=== PATIENT | male | born 1985 | race Caucasian/White ===

== ENCOUNTER 2017-02-25 12:26 | Emergency (ER) | payer SELFPAY ==
[~2017-02-25] VITALS: Ht 167.6 cm; Wt 102.1 kg
[~2017-02-25 12:26] MED LIST: TRM50T PO
[2017-02-25] MEDS ORDERED: LIDOCAINE 1% INJ 20 ML (XYLOCAINE) VIAL ONE (12:30)
[2017-02-25] MEDS ORDERED: TETANUS,DIPTH,PERTUSS P/F (BOOSTRIX) 0.5 ML VIAL IM ONE (12:31)
--- NOTE | 2017-02-25 13:10 | ED Upper Extremity ---
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 Patient denies loss of sensation or range of motion affected digit he denies other injury Patient's tetanus immunization is not up-to-date. Allergies and Home Medications Allergies Coded Allergies: No Known Drug Allergies (Unverified , 03/28/10) Home Medications No Active Prescriptions or Reported Meds Constitutional: No chills, No fever EENTM: no symptoms reported Respiratory: no symptoms reported Cardiovascular: no symptoms reported Gastrointestinal: abdominal pain Musculoskeletal: no symptoms reported Skin: see HPI, other (there is a 3 cm flap laceration of the proximal phalanx palmar aspect of the right index finger along its radial aspect.) Psychiatric/Neurological: No Symptoms Reported Past Mcdrfkq-Pyagdk-Rdorsf Hx Patient Social History Alcohol Use: Occasionally Uses Recreational Drug Use: Yes (METH, POT) Type Used: Cigarettes Recent Foreign Travel: No Contact w/Someone Who Travel: No Recent Infectious Disease Expo: No Recent Hopitalizations: No Physical Abuse: No Sexual Abuse: No Immunizations Up To Date Tetanus Booster (TDap): Unknown Seasonal Allergies Seasonal Allergies: No Surgeries History of Surgeries: Yes (Bilat ear tubes) Surgeries: Adenoidectomy, Tonsillectomy Respiratory History of Respiratory Disorde: No Cardiovascular History of Cardiac Disorders: No Neurological History of Neurological Disord: No Reproductive System Hx Reproductive Disorders: No Gastrointestinal History of Gastrointestinal Di: No Musculoskeletal History of Musculoskeletal Dis: No Endocrine History of Endocrine Disorders: No Cancer History of Cancer: No Psychosocial History of Psychiatric Problem: No Suicide Risk Score: 0 Integumentary History of Skin or Integumenta: No Blood Transfusions History of Blood Disorders: No Reviewed Nursing Assessment Reviewed/Agree w Nursing PMH: Yes Physical Exam Vital Signs Vital Sign - Last 12Hours 02/25/17 12:26 Temp 97.1 Pulse 81 Resp 20 B/P (MAP) 133/100 Pulse Ox 100 Capillary Refill : Less Than 3 Seconds General Appearance: WD/WN, mild distress HEENT: normal ENT inspection Neck: normal inspection Cardiovascular: normal peripheral pulses Respiratory: lungs clear, no respiratory distress Gastrointestinal: non tender Shoulder: normal inspection Elbow/Forearm: normal inspection Wrist: Yes normal inspection Hand: Right, laceration (there is a 3 cm laceration the proximal phalanx radial aspect of the right index finger. There was normal neurologic mask and tendon exam.) Neurologic/Tendon: normal sensation, normal motor functions, normal tendon functions, responds to pain Neurologic/Psychiatric: no motor/sensory deficits, alert, normal mood/affect Progress/Results/Core Measures Results/Orders My Orders Orders - ALAN FELICIANO MD Lidocaine 1% Injection (Xylocaine 1% Inj (02/25/17 12:30) Dipht,Pertuss(Acell),Tet Adult (Boostrix (02/25/17 12:31) Medications Given in ED Current Medications Medications Dose Ordered Sig/Debbie Route Start Time Stop Time Status Last Admin Dose Admin Diphtheria/ Tetanus/Acell Pertussis 0.5 ml STK-MED ONCE IM 02/25/17 12:31 02/25/17 12:39 DC 02/25/17 12:43 0.5 ML Lidocaine HCl 20 ml STK-MED ONCE .ROUTE 02/25/17 12:30 02/25/17 12:38 DC 02/25/17 12:40 20 ML Vital Signs/I&O Vital Sign - Last 12Hours 02/25/17 12:26 Temp 97.1 Pulse 81 Resp 20 B/P (MAP) 133/100 Pulse Ox 100 Blood Pressure Mean: 111 Progress Note : Time: 13:07 Progress Note Under usual sterile conditions using 1 percent Xylocaine for local anesthesia laceration was prepped and draped and closed in an interrupted fashion approximately 8 sutures were used for closure. Patient tolerated the procedure well the wound was cleaned and dressed. During repair laceration inadvertently sustained a puncture wound from the suture needle to my left middle finger distal phalanx radial aspect. Patient gave permission for us to draw blood for HIV and hepatitis. Departure Impression Impression: Primary Impression: Laceration Disposition: 01 HOME, SELF-CARE Condition: Improved Departure-Patient Inst. Decision time for Depature: 13:09 Referrals: NO,LOCAL PHYSICIAN (PCP) Primary Care Physician Patient Instructions: Laceration Repair Add. Discharge Instructions: Sutures out in 10 days. Watch for signs of infection. Ibuprofen or Tylenol for pain. Return if any problems or questions. All discharge instructions reviewed with patient and/or family. Voiced understanding. Scripts No Active Prescriptions or Reported Meds ALAN FELICIANO MD Feb 25, 2017 13:10
[2017-02-25 13:28] VITALS: BP 133/100
== END 2017-02-25 13:28 | disposition home or self-care (01) ==
LOC: EDUNIT# 12:26 → ER 12:28
DX: S61.210A Laceration without foreign body of right index finger without damage to nail, initial encounter (principal); F12.90 Cannabis use, unspecified, uncomplicated; Z23 Encounter for immunization; Z90.89 Acquired absence of other organs; W26.8XXA Contact with other sharp object(s), not elsewhere classified, initial encounter
CPT/HCPCS: 12041; 90471; 90715

== ENCOUNTER → 2017-06-05 | Outpatient (CLI) | payer SELFPAY ==
--- NOTE | 2017-06-05 14:17 | Diagnostic Imaging Report ---
INDICATION: Scrotal mass. TECHNIQUE: Grayscale imaging of the scrotum was performed. Color Doppler velocity and spectral waveform analysis of the scrotal vessels was performed. FINDINGS: The right testicle measures approximately 6 x 7.5 x 7.5 cm and is diffusely heterogeneous in appearance with color Doppler velocity and spectral waveform analysis showing inflow and outflow present with no hyperemia or torsion. This abnormal testis represents malignancy until proven otherwise. The left testicle measures approximately 2.5 x 4.5 cm and is normal in appearance with normal vascularity demonstrated. The left epididymis is normal. The right epididymis is not seen. There is no hydrocele. IMPRESSION: There is abnormal appearance to an enlarged right testicle which represents malignancy until proven otherwise. Dictated by: Dictated on workstation # [id number]
== END ==
LOC: RAD 12:36
PROVIDERS: ATTEND Nurse Practitioner Community Health
DX: N44.8 Other noninflammatory disorders of the testis (principal)
CPT/HCPCS: 76870

== ENCOUNTER → 2017-06-12 | Outpatient (CLI) | payer SELFPAY ==
[2017-06-12 15:01] LABS: ALANINE AMINOTRANSFERASE 46 U/L (0-55); ALBUMIN 4.4 GM/DL (3.2-4.5); ALKALINE PHOSPHATASE 98 U/L (40-136); BILIRUBIN,TOTAL 0.5 MG/DL (0.1-1.0); BUN/CREATININE RATIO 11; CALCIUM 9.2 MG/DL (8.5-10.1); CARBON DIOXIDE 23 MMOL/L (21-32); CHLORIDE 102 MMOL/L (98-107); CREATININE SERUM 0.91 MG/DL (0.60-1.30); GFR ESTIMATED > 60; GLUCOSE 96 MG/DL (70-105); POTASSIUM 4.5 MMOL/L (3.6-5.0); SODIUM 135 MMOL/L (135-145); TOTAL PROTEIN 7.3 GM/DL (6.4-8.2)
--- NOTE | 2017-06-12 15:21 | Diagnostic Imaging Report ---
INDICATION: Testicular cancer. EXAMINATION: PA and lateral chest. FINDINGS: The heart and mediastinum are normal. The lungs are clear. There are no effusions or pneumothoraces. IMPRESSION: Negative chest. Dictated by: Dictated on workstation # [id number]
== END ==
LOC: LAB 14:19
PROVIDERS: ATTEND Surgery
DX: N50.9 Disorder of male genital organs, unspecified (principal)
CPT/HCPCS: 36415; 71046; 80053; 82105; 83615; 84702

== ENCOUNTER 2017-07-25 05:38 | Outpatient (CLI) | payer SELFPAY ==
[~2017-07-25] VITALS: Ht 167.6 cm; Wt 102.1 kg
== END 2017-07-25 11:13 ==
LOC: PREOP 05:38
PROVIDERS: ATTEND Surgery
DX: Z01.818 Encounter for other preprocedural examination (principal); K80.20 Calculus of gallbladder without cholecystitis without obstruction

== ENCOUNTER 2017-07-30 07:50 | Day surgery (SDC) | payer OTHER ==
[~2017-07-30] VITALS: Ht 167.6 cm; Wt 102.1 kg
[2017-07-30] MEDS ORDERED: CATHETER FLUSH 10 ML SYR IV PRN (08:15)
[2017-07-30] MEDS ORDERED: ceFAZolin 2 GM/50 ML PRE-MIX IVPB IV ONE (08:15)
[2017-07-30] MEDS ORDERED: LIDOCAINE/EPI 1%-1:200,000 (XYLOCAINE) 10 ML VIAL ONE ×2 (08:19→09:44)
[2017-07-30 08:24] VITALS: BP 124/72
[2017-07-30] MEDS: LACTATED RINGERS 1,000 ML IV PRN ×3 (08:28→10:29)
[2017-07-30] MEDS ORDERED: ceFAZolin 2 GM IV Premixed 50 ML IV ONE (08:30)
[2017-07-30] MEDS ORDERED: fentaNYL INJECTION 100 MCG/2 ML AMP ONE ×2 (08:38→09:51)
[2017-07-30] MEDS ORDERED: MIDAZOLAM 2 MG/2 ML (VERSED) VIAL ONE (08:39)
--- NOTE | 2017-07-30 09:07 | Progress Note-Pre Operative ---
Pre-Operative Progress Note H&P Reviewed The H&P was reviewed, patient examined and no changes noted. Time Seen by Provider: 09:03 Date H&P Reviewed: Jul 30, 2017 Time H&P Reviewed: 09:05 Pre-Operative Diagnosis: cholelithiasis/cholecystitis LATASHA MONTES DO Jul 30, 2017 09:07
[2017-07-30] MEDS ORDERED: proPOfol 200 MG/20 ML (DIPRIVAN) VIAL IV ONE ×2 (09:51→09:57)
[2017-07-30] MEDS ORDERED: ONDANSETRON 4 MG/2 ML (SDV) Z0FRAN ONE (09:51)
[2017-07-30] MEDS ORDERED: SEVOFLURANE (ULTANE) 15 ML INHAL SOLN ONE ×3 (09:51)
[2017-07-30] MEDS ORDERED: ROCURONIUM 50 MG/5 ML (ZEMURON) VIAL IV ONE ×2 (09:51→10:21)
[2017-07-30] MEDS ORDERED: DEXAMETHASONE 10 MG/ML (DECADRON) 1 ML VIAL ONE (09:51)
[2017-07-30] MEDS ORDERED: LIDOCAINE PF 2% 5 ML (XYLOCAINE) VIAL ONE (09:51)
--- NOTE | 2017-07-30 10:21 | Progress Note-Post Operative ---
Post-Operative Progess Note Surgeon (s)/Metal Control Worker (s) Surgeon LATASHA MONTES DO Metal Control Worker: Arjun Pre-Operative Diagnosis cholelithiasis/cholecystitis Post-Operative Diagnosis same Procedure & Operative Findings Date of Procedure 07/30/17 Procedure Performed/Findings Lap maximus with IOC Anesthesia Type GET Estimated Blood Loss Estimated blood loss (mL): scant Specimens/Packing Specimens Removed GB and contents LATASHA MONTES DO Jul 30, 2017 10:21
[2017-07-30] MEDS ORDERED: NEOSTIGMINE (BLOXIVERZ ) 1 MG/1ML 10 ML VIAL ONE (10:22)
[2017-07-30] MEDS ORDERED: HYDR-3820 PO (10:22)
[2017-07-30] MEDS ORDERED: KETOROLAC 30 MG/ML VIAL ONE (10:22)
[2017-07-30] MEDS ORDERED: GLYCOPYRROLATE 0.2 MG/ML (ROBINUL) 2 ML VIAL ONE (10:22)
--- NOTE | 2017-07-30 10:25 | Discharge Inst-Surgical ---
Discharge Inst-Surgical Depart Medication/Instructions New, Converted or Re-Newed RX: RX Given to Pt/Family Patient Instructions Follow up Appt: Make appointment for 1 week;[phone]. Instructions: No lifting greater than 10 pounds. No strenuous activity. May shower in 24 hours, no tub bath or soaking. Use incentive spirometer at home as directed. No Smoking Skin/Wound Care: May remove bandages. You need to leave the Dermabond on over incision it will fall off on its own. Symptoms to Report: Appetite Changes, Extremity Discoloration, Numbness/Tingling, Swelling Increased , Bleeding Excessive, Eyesight Changes, Pain Increased, Urine Color Change, Constipation(Persistent), Fever over 101 degree F, Pain/Pressure in chest, Urinating Difficulty, Cough Up/Vomit Blood, Heart Beat Irreg/Pounding, Pain/ Pressure in jaw, Cramps in feet or legs, Lightheadedness, Pain/Pressure in shoulder, Diarrhea(Persistent), Memory Changes Suddenly, Questions/Concerns, Weight gain consecutive days, Dizziness/Fainting, Nausea/Vomiting, Shortness of Breath, Weight gain over 2 pounds. If eyes or skin turn yellow notify physician. If questions or concerns contact your physician Or seek help at emergency department. Activity Activity as Tolerated: Yes Activity Instructions: Avoid Stress to Incision Driving Instructions: No Driving/Refer to Diet Discharge Diet: Avoid Fatty Foods, Low Fat/Low Cholesterol Diet After 24 Hours: Clear Liquid if Nauseous If Any Problems/Questions/Issu: Contact Your Physician, Go to Emergency Room Skin/Wound Care Infection Signs and Symptoms: Increased Redness, Foul Odor of Wound, Increased Drainage, Skin Itchy or Has a Rash, Increased Swelling, Temperature Above 101 F Wound Care Comment: Heating pad to shoulder or neck tonight for pain. Bathing Instructions: Shower Stitches/Tommie/Dermabond Dis: Dermabond Ice Pack: Ice On and Off Site (as needed for pain) LATASHA MONTES DO Jul 30, 2017 10:25
[2017-07-30] MEDS ORDERED: morphine INJ 10 MG/ML 1ML (SYR OR VIAL) ONE (10:47)
[2017-07-30] MEDS: morphine INJ 10 MG/ML 1ML (SYR OR VIAL) IVP PRN ×2 (10:50→10:55)
[2017-07-30] MEDS ORDERED: HYDROmorphone (DILAUDID) 2 MG/ML VIAL IVP PRN (11:00)
[2017-07-30] MEDS ORDERED: fentaNYL INJECTION 100 MCG/2 ML AMP IVP PRN (11:00)
[2017-07-30] MEDS ORDERED: ONDANSETRON 4 MG/2 ML (SDV) Z0FRAN IVP PRN (11:00)
--- NOTE | 2017-07-30 11:18 | Diagnostic Imaging Report ---
INDICATION: Laparoscopic cholecystectomy. FINDINGS: Fluoroscopy was provided in the OR during performance of an intraoperative cholangiogram. 9 seconds of fluoroscopic time was utilized. Multiple images demonstrate contrast being injected via the cystic duct remnant. There is opacification of the extrahepatic bile duct which is of normal caliber. No filling defects are seen to suggest a retained stone. There is normal flow of contrast into the duodenum. IMPRESSION: Fluoroscopy for intraoperative cholangiogram. Dictated by: Dictated on workstation # [id number]
[2017-07-30 11:50] VITALS: BP 129/74
[2017-07-30 12:20] VITALS: BP 123/65
[2017-07-30 12:50] VITALS: BP 122/69
[2017-07-30 13:20] VITALS: BP 122/69
--- NOTE | 2017-07-30 14:00 | Anesthesia-General Post-Op ---
General Patient Condition Mental Status/LOC: Same as Preop Cardiovascular: Satisfactory Nausea/Vomiting: Absent Respiratory: Satisfactory Pain: Controlled Complications: Absent Post Op Complications Complications None Follow Up Care/Instructions Patient Instructions None needed. Anesthesia/Patient Condition Patient Condition Patient was S/E prior to discharge to home and was doing well, no complaints, stable vital signs, no apparent adverse anesthesia problems. TOM MARADIAGA DO Jul 30, 2017 14:00
--- NOTE | 2017-07-30 21:10 | OPERATIVE REPORT ---
DATE OF SERVICE: PREOPERATIVE DIAGNOSES: Cholelithiasis, cholecystitis. POSTOPERATIVE DIAGNOSES: Cholelithiasis, cholecystitis. PROCEDURE: Laparoscopic cholecystectomy, intraoperative cholangiogram. SURGEON: Dr. Mahan. COMPUTER SYSTEMS TECHNOLOGY INSTRUCTOR: Dr. Díaz. ANESTHESIA: General endotracheal tube. SPECIMEN: Gallbladder and contents. BLOOD LOSS: Less than 10 mL. FLUIDS: Per anesthesia. POSTOPERATIVE CONDITION: Stable. INDICATION FOR PROCEDURE: The patient is a 32-year-old male who has had pain in right upper quadrant associated with fried and fatty foods and had a CT, which showed a large stone. FINDINGS: The patient had a very large stone in the gallbladder with some surrounding fat and almost looked like edema in the gallbladder. PROCEDURE NOTE: After informed consent was obtained, the patient was brought to the operating room, placed on the operating table in supine position, sterilely prepped and draped in normal fashion. Local lidocaine was used to infiltrate the skin above the umbilicus, made incision with #11 blade, carried down through skin and subcutaneous tissue, then deepened down the subcutaneous tissue with Bovie electrocautery down to the fascia. Fascia was incised with Bovie electrocautery and bluntly entered the abdomen, swept a finger around, placed 0 Vicryl [id number] suture, and then placed an 11 mm trocar port under direct visualization, created pneumoperitoneum and then placed 3 more ports in a normal fashion using local lidocaine, an 11 blade for a stab incision and the VersaStep system, all done under direct visualization, one subxiphoid and 2 in the right upper quadrant. The patient was then placed in reverse Trendelenburg and rotated left, able to grasp the gallbladder at the fundus and taken in superior direction and then grasped down the Linda's pouch, pulled in the inferolateral direction and started dissecting out the cystic duct, lot of fat around the gallbladder and what looked like edema. I was able to get around the cystic duct and the cystic artery and placed 1 clip distally in the cystic duct and 1 distally on the cystic artery and 1 proximally on the cystic artery, and then 1 distally on the cystic duct. Cut the cystic duct intermediate through with Metzenbaum scissors. Placed a cholangiogram catheter and shot a cholangiogram. Good spillage of dye down the common bile duct into the small intestine as well as up into the common hepatic and right and left hepatics. Removed the cholangiogram catheter, placed 2 clips proximally on the cystic duct and cut the cystic duct and cystic artery with Metzenbaum scissors and then removed the gallbladder from bed of liver with L-hook cautery. posterior branch of the cystic artery, clipped this twice proximally and then dissected above with Bovie electrocautery. Then I continued to take the gallbladder off the bed of liver with L-hook cautery. Once this was completely removed, placed a bag in the abdomen, placed the gallbladder in the bag and then removed this through the supraumbilical incision with very large stones and pretty hard to get the gallbladder out. Finally, able to get it out after pulling a couple of stones out of the gallbladder itself, placed an 11 mm trocar port back in. Copiously irrigated with normal saline, suctioned this out, took a picture of the bed of liver, there was no bleeding, looked around, no obvious pathology. There were some adhesions above the liver on the left, but did not move any intestine or omentum and then placed the patient supine, removed all ports under direct visualization, allowing pneumoperitoneum to escape. Closed the supraumbilical incision, closed the fascia with 0 Vicryl suture previously placed. Copiously irrigated all incisions with normal saline, closing the 3 small 5 mm incisions with a single interrupted 4-0 undyed Monocryl subcuticular stitch. Closed the supraumbilical incision with 3 interrupted 4-0 undyed Monocryl subcuticular stitches. Area was cleaned and dried and Dermabond was placed as well as bandage. The patient was then transferred to recovery room in stable condition. Sponge and needle count correct at the end of the case. Dr. Díaz assisted in the case making incisions, identifying the anatomy, holding up the anatomy and then closing the incisions. Job ID: [id number] DocumentID: [id number] Dictated Date: 07/30/2017 15:00:14 Orchestra Musician Date: 07/30/2017 21:10:23 Dictated By: LATASHA MAHAN DO
== END 2017-07-30 13:20 | disposition home or self-care (01) ==
LOC: SDC 07:50
PROVIDERS: ATTEND Surgery
DX: K80.10 Calculus of gallbladder with chronic cholecystitis without obstruction (principal); C62.11 Malignant neoplasm of descended right testis; I10 Essential (primary) hypertension; E66.9 Obesity, unspecified; F17.210 Nicotine dependence, cigarettes, uncomplicated; F32.9 Major depressive disorder, single episode, unspecified; F90.9 Attention-deficit hyperactivity disorder, unspecified type; Z68.36 Body mass index [BMI] 36.0-36.9, adult
CPT/HCPCS: 87081; 94664

== ENCOUNTER 2017-10-08 09:32 | Inpatient (IN) | payer OTHER ==
[~2017-10-08] VITALS: Ht 167.6 cm; Wt 101.6 kg
[~2017-10-08 09:32] MED LIST changes: +HYDR-3820 PO
[2017-10-08] MEDS ORDERED: fentaNYL INJECTION 100 MCG/2 ML AMP ONE (09:39)
--- OUTSIDE RECORDS SUMMARY | 2017-10-08 09:40 | XMS REPORT | Clinical Summary ---
Author Author [facility] Organization [facility] Address Unknown Phone Unavailable Care Team Providers Care Pest Control Operator Name Role Phone No Pcp, Na PCP Unavailable Source Comments Some departments are not documenting in the electronic medical record. If you do not see the information that you expected, contact Release of Information in the Health Information Management department at [phone] for further assistance in locating additional records.[facility] Allergies No Known Allergies Current Medications Prescription Sig. Disp. Refills Start End Date Status Date oxyCODONE/acetaminophen Take 1-2 tablets by mouth 30 tablet 0 Active (ENDOCET) 5/325 mg tablet every 4 hours as needed 18 for Pain senna (SENNA) 8.6 mg Take 2 tablets by mouth 90 tablet 3 07/02/19 Active tablet at bedtime daily. 18 Active Problems Problem Noted Date Testicular cancer (HCC) 06/26/2017 Overview: Initially found a mass in his right testicle about 2 years ago, but was not seen due to lack of resources and insurance. Recently this mass has increased in size and he has started having some minimal pain. Scrotum US completed Jun 2017 which noted an abnormal appearance of right testicle which could represent a malignancy. Radiology: 06/05/2017: US SCROTUM - Impression: There is abnormal appearance to an enlarged right testicle which represents malignancy until proven otherwise. Labs: 06/12/2017 LDH 463 U/L AFP <1.5 ng.mL HCG 294 mIU/mL 07/02/17: CT ANN 07/02/17: Rt radical orchiectomy: T1b NSGCT Seminoma (specify percentage): less than 10% Embryonal carcinoma (specify percentage): 80-90% Yolk sac tumor, postpubertal type (specify percentage): 0% Choriocarcinoma (specify percentage): less than 5% Teratoma (specify percentage): 0% 07/10/17: tumor markers negative Stage 1A L ast Assessment & Plan: Progressing well after surgery We reviewed options of 1. Observation 2. Nerve sparing RPLND 3. Single dose chemotherapy He will RTC 2 weeks with tumor markers Family History Medical History Relation Name Comments Cancer Other Diabetes Other Stroke Other Testicular Cancer Other Relation Name Status Comments Other Social History Tobacco Use Types Packs/Day Years Used Date Current Every Day Smoker Cigarettes 2 20 Smokeless Tobacco: Former Chew Quit: User 06/26/2016 Tobacco Cessation: Ready to Quit: Yes Alcohol Use Drinks/Week oz/Week Comments Yes 5 Cans of 3.0 beer Sex Assigned at Date Recorded Not on file Last Filed Vital Signs Vital Sign Reading Time Taken Blood Pressure 137/71 07/10/2017 2:37 PM UX ENGINEER Pulse 92 07/10/2017 2:37 PM UX ENGINEER Temperature 36.6 C (97.9 F) 07/02/2017 9:35 AM UX ENGINEER Respiratory Rate - - Oxygen Saturation 98% 07/02/2017 10:15 AM UX ENGINEER Inhaled Oxygen - - Concentration Weight 98 kg (216 lb) 07/10/2017 2:37 PM UX ENGINEER Height 167.6 cm (5' 6") 07/10/2017 2:37 PM UX ENGINEER Body Mass Index 34.86 07/10/2017 2:37 PM UX ENGINEER Plan of Treatment Health Maintenance Due Date Last Done Comments PHYSICAL (COMPREHENSIVE) 1991 EXAM PERTUSSIS VACCINE 1995 HIV SCREENING 1999 TETANUS VACCINE 2001 INFLUENZA VACCINE 03/04/2018 Results Not on filefrom Last 3 Months
--- OUTSIDE RECORDS SUMMARY | 2017-10-08 09:40 | XMS REPORT | Continuity of Care Document ---
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 Clerk Carrier Name Role Phone [employer] Unavailable Unavailable Problems Medications Allergies, Adverse Reactions, Alerts Immunizations Results Vital Signs Encounters Location Location Details Encounter Type Encounter Number Reason For Visit Attending Provider ADM Date DC Date Status Source OUTPATIENT [id number] 06/26/2017 Active [facility] OUTPATIENT [id number] 06/26/2017 Active [facility] OP SURGERY [id number] [facility] WHITE 07/02/2017 07/02/2017 Active [facility] OUTPATIENT [id number] SHAWN WHITE 07/10/2017 07/10/2017 Active [facility] O SHAWN WHITE Active [facility] Procedures Plan of Care Social History Assessment and Plan Family History Advance Directives Functional Status
[2017-10-08] MEDS ORDERED: NS IV 1000 ML 1,000 ML IV ONE ×2 (09:41→10:59)
[2017-10-08] MEDS ORDERED: ONDANSETRON 4 MG/2 ML (SDV) Z0FRAN IVP ONE (09:45)
[2017-10-08] MEDS ORDERED: fentaNYL INJECTION 100 MCG/2 ML AMP IVP ONE ×2 (09:45→13:45)
[2017-10-08 09:55] LABS: BASOPHILS # (AUTO) 0.1 10^3/uL (0.0-0.1); BASOPHILS % (AUTO) 0 % (0-10); EOSINOPHILS % (AUTO) 0 % (0-10); HEMATOCRIT 44 % (40-54); HEMOGLOBIN 15.4 G/DL (13.3-17.7); LYMPHOCYTES # (AUTO) 1.4 X 10^3 (1.0-4.0); LYMPHOCYTES % (AUTO) 5 % (12-44); MEAN CORPUSCULAR HEMOGLOBIN 31 PG (25-34); MEAN CORPUSCULAR HGB CONC 35 G/DL (32-36); MEAN CORPUSCULAR VOLUME 88 FL (80-99); MEAN PLATELET VOLUME 10.4 FL (7.4-10.4); MONOCYTES # (AUTO) 2.5 X 10^3 (0.0-1.0); MONOCYTES % (AUTO) 9 % (0-12); NEUTROPHILS # (AUTO) 23.7 X 10^3 (1.8-7.8); NEUTROPHILS % (AUTO) 86 % (42-75); PLATELET COUNT 395 10^3/uL (130-400); RED BLOOD COUNT 4.98 10^6/uL (4.35-5.85); RED CELL DISTRIBUTION WIDTH 13.3 % (10.0-14.5); WHITE BLOOD COUNT 27.7 10^3/uL (4.3-11.0)
[2017-10-08 10:18] LABS: ALANINE AMINOTRANSFERASE 12 U/L (0-55); ALBUMIN 3.8 GM/DL (3.2-4.5); ALKALINE PHOSPHATASE 112 U/L (40-136); BILIRUBIN,TOTAL 0.9 MG/DL (0.1-1.0); BUN/CREATININE RATIO 11; CALCIUM 9.7 MG/DL (8.5-10.1); CARBON DIOXIDE 17 MMOL/L (21-32); CHLORIDE 102 MMOL/L (98-107); CREATININE SERUM 0.89 MG/DL (0.60-1.30); GFR ESTIMATED > 60; GLUCOSE 105 MG/DL (70-105); POTASSIUM 4.7 MMOL/L (3.6-5.0); SODIUM 131 MMOL/L (135-145); TOTAL PROTEIN 7.5 GM/DL (6.4-8.2)
--- NOTE | 2017-10-08 10:29 | Diagnostic Imaging Report ---
Indication: Chest pain. Procedure: PA and lateral chest obtained of8903 hrs. a.m. and compared with 06/12/2017 Findings: There is new extensive pleural thickening and/or fluid in the left lateral pleural space and costophrenic angle. There are some infiltrate or atelectasis in the left lateral base which is new. There is no pneumothorax. Right lung is clear. Impression: New left basilar infiltrate versus atelectasis with left-sided pleural fluid and/or pleural thickening in the left costophrenic angle and lateral pleural space. Consider chest CT as clinically warranted. Dictated by: Dictated on workstation # [id number]
[2017-10-08 10:31] LABS: BAND NEUTROPHILS 4 %; BASOPHILS % (MANUAL) 0 %; EOSINOPHILS % (MANUAL) 0 %; LYMPHOCYTES % (MANUAL) 7 %; MONOCYTES % (MANUAL) 3 %; NEUTROPHILS % (MANUAL) 86 %; RBC MORPH NORMAL
[2017-10-08] MEDS ORDERED: PIPERACILLIN SODIUM/TAZOBACTAM 4.5 GM in NS (IVPB) 100 ML IV ONE (11:00)
[2017-10-08] MEDS ORDERED: KETOROLAC 30 MG/ML VIAL IVP ONE (11:00)
--- NOTE | 2017-10-08 11:11 | ED Chest Pain ---
General Chief Complaint: Chest Pain Stated Complaint: SOB, PAIN IN SIDE CONGESTED Nursing Triage Note: PT CO OF CHEST PAIN, PT STATES STARTED YESTERDAY IN L CHEST AREA DOWN L ARM AND L SIDE BACK PAIN IN REPRODUCABLE BY DR Howard. PT HYPERVENTILATING, RR 42 PT CLUTCHING L SIDE CHEST, PT STATES DOES HAVE FREQUENT PROD COUGH. Nursing Sepsis Screen: No Definite Risk Source: patient Exam Limitations: no limitations History of Present Illness Date Seen by Provider: October 08, 2017 Time Seen by Provider: 09:36 Initial Comments This 32-year-old gentleman presents to the emergency room with primary complaint of left-sided chest pain that radiates all the way down to his left lower back. He has a very tender to palpation of the chest wall and breathing is painful. He is tachycardic. He is also very dyspneic. He has had productive cough. He has had nausea and vomiting that has now turned to dry heaves. He is diaphoretic but denies fever. Patient has a history of right testicular cancer status post orchiectomy. He is otherwise relatively healthy. Dr. Montenegro is his oncologist. Dr. Mahan is his surgeon. Allergies and Home Medications Allergies Coded Allergies: No Known Drug Allergies (Unverified , 03/28/10) Home Medications No Active Prescriptions or Reported Meds Patient Home Medication List Home Medication List Reviewed: Yes Review of Systems Constitutional: see HPI EENTM: No Symptoms Reported Respiratory: See HPI, Shortness of Air Cardiovascular: See HPI Gastrointestinal: See HPI Genitourinary: No Symptoms Reported Musculoskeletal: see HPI Skin: see HPI Psychiatric/Neurological: No Symptoms Reported Endocrine: No Symptoms Reported Hematologic/Lymphatic: No Symptoms Reported Past Wlflnqz-Cdoglf-Kavgup Hx Patient Social History Alcohol Use: Regular Use Number of Drinks Today: 2 Alcohol Beverage of Choice: Beer Recreational Drug Use: Yes (ALCOHOL) Drug of Choice: MARIJUANA Smoking Status: Current Everyday Smoker Type Used: Cigarettes Recent Foreign Travel: No Contact w/Someone Who Travel: No Recent Infectious Disease Expo: No Recent Hopitalizations: No Physical Abuse: No Sexual Abuse: No Immunizations Up To Date Tetanus Booster (TDap): Unknown Seasonal Allergies Seasonal Allergies: No Past Medical History Surgeries: Yes (Bilat ear tubes, right orchiectomy) Adenoidectomy, Tonsillectomy Respiratory: No Cardiac: No Neurological: No Reproductive Disorders: Yes (testicular cancer) Gastrointestinal: No Gall Bladder Disease Musculoskeletal: No Endocrine: No Loss of Vision: Denies Hearing Impairment: Denies Cancer: Yes Testicular What Type of Treatment Did You: Surgical Intervention Psychosocial: Yes ADD/ADHD, Depression Nursing Suicide Risk Score: 0 Integumentary: No Blood Disorders: No Physical Exam Vital Signs Vital Signs - First Documented 10/08/17 09:34 Temp 99.1 Pulse 111 Resp 28 B/P (MAP) 167/76 (106) Pulse Ox 96 Capillary Refill : Less Than 3 Seconds General Appearance: WD/WN, Moderate Distress HEENT: PERRL/EOMI, Normal ENT Inspection, Pharynx Normal Neck: Normal Inspection Respiratory: Lungs Clear, Normal Breath Sounds, No Accessory Muscle Use, No Respiratory Distress Cardiovascular: No Edema, No Murmur, Tachycardia Gastrointestinal: Normal Bowel Sounds, No Organomegaly, Non Tender, Soft; No Distended, No Guarding, No Mass, No Rebound Extremity: Normal Inspection, Non Tender, No Calf Tenderness, No Pedal Edema Neurologic/Psychiatric: Alert, Oriented x3, No Motor/Sensory Deficits, Normal Mood/Affect, in home aide II-XII Norm as Tested Skin: Normal Color, Warm/Dry Focused Exam Lactate Level 10/08/17 11:28: Lactic Acid Level 0.84 Lactic Acid Level Laboratory Tests Test 10/08/17 11:28 Lactic Acid Level 0.84 MMOL/L (0.50-2.00) Progress/Results/Core Measures Results/Orders Lab Results Laboratory Tests Test 10/08/17 09:40 10/08/17 11:28 Range/Units White Blood Count 27.7 H 4.3-11.0 10^3/uL Red Blood Count 4.98 4.35-5.85 10^6/uL Hemoglobin 15.4 13.3-17.7 G/DL Hematocrit 44 40-54 % Mean Corpuscular Volume 88 80-99 FL Mean Corpuscular Hemoglobin 31 25-34 PG Mean Corpuscular Hemoglobin Concent 35 32-36 G/DL Red Cell Distribution Width 13.3 10.0-14.5 % Platelet Count 395 130-400 10^3/uL Mean Platelet Volume 10.4 7.4-10.4 FL Neutrophils (%) (Auto) 86 H 42-75 % Lymphocytes (%) (Auto) 5 L 12-44 % Monocytes (%) (Auto) 9 0-12 % Eosinophils (%) (Auto) 0 0-10 % Basophils (%) (Auto) 0 0-10 % Neutrophils # (Auto) 23.7 H 1.8-7.8 X 10^3 Lymphocytes # (Auto) 1.4 1.0-4.0 X 10^3 Monocytes # (Auto) 2.5 H 0.0-1.0 X 10^3 Eosinophils # (Auto) 0.0 0.0-0.3 10^3/uL Basophils # (Auto) 0.1 0.0-0.1 10^3/uL Neutrophils % (Manual) 86 % Lymphocytes % (Manual) 7 % Monocytes % (Manual) 3 % Eosinophils % (Manual) 0 % Basophils % (Manual) 0 % Band Neutrophils 4 % Blood Morphology Comment NORMAL Sodium Level 131 L 135-145 MMOL/L Potassium Level 4.7 3.6-5.0 MMOL/L Chloride Level 102 98-107 MMOL/L Carbon Dioxide Level 17 L 21-32 MMOL/L Anion Gap 12 5-14 MMOL/L Blood Urea Nitrogen 10 7-18 MG/DL Creatinine 0.89 0.60-1.30 MG/DL Estimat Glomerular Filtration Rate > 60 BUN/Creatinine Ratio 11 Glucose Level 105 70-105 MG/DL Calcium Level 9.7 8.5-10.1 MG/DL Total Bilirubin 0.9 0.1-1.0 MG/DL Aspartate Amino Transf (AST/SGOT) 15 5-34 U/L Alanine Aminotransferase (ALT/SGPT) 12 0-55 U/L Alkaline Phosphatase 112 40-136 U/L C-Reactive Protein High Sensitivity 30.70 H 0.00-0.50 MG/DL Total Protein 7.5 6.4-8.2 GM/DL Albumin 3.8 3.2-4.5 GM/DL Lactic Acid Level 0.84 0.50-2.00 MMOL/L Micro Results Microbiology 10/08/17 Influenza Types A,B Antigen (ELIJAH) - Final, Complete My Orders Orders - DONTA LÓPEZ MD Cbc With Automated Diff (10/08/17 09:41) Comprehensive Metabolic Panel (10/08/17 09:41) Hs C Reactive Protein (10/08/17 09:41) Saline Lock/Iv-Start (10/08/17 09:41) Saline Lock/Iv-Start (10/08/17 09:41) Ns Iv 1000 Ml (Sodium Chloride 0.9%) (10/08/17 09:41) Fentanyl Injection (Sublimaze Injection (10/08/17 09:45) Ondansetron Injection (Zofran Injectio (10/08/17 09:45) Fentanyl Injection (Sublimaze Injection (10/08/17 09:39) Chest Pa/Lat (2 View) (10/08/17 09:46) Influenza A And B Antigens (10/08/17 09:46) Manual Differential (10/08/17 09:40) Blood Culture (10/08/17 10:59) Lactic Acid Analyzer (10/08/17 10:59) Piperacillin Sodium/Tazobactam (Zosyn Vi (10/08/17 11:00) Ns Iv 1000 Ml (Sodium Chloride 0.9%) (10/08/17 10:59) Ketorolac Injection (Toradol Injection) (10/08/17 11:00) Hcg Tumor Marker (10/08/17 10:59) Ct Chest/Abdomen/Pelvis W (10/08/17 11:15) Iohexol Injection (Omnipaque 350 Mg/Ml 1 (10/08/17 11:30) Ns (Ivpb) (Sodium Chloride 0.9%) (10/08/17 11:30) Medications Given in ED Current Medications Medications Dose Ordered Sig/Debbie Route Start Time Stop Time Status Last Admin Dose Admin Fentanyl Citrate 75 mcg ONCE ONCE IVP 10/08/17 09:45 10/08/17 09:46 DC 10/08/17 09:45 75 MCG Iohexol 100 ml ONCE ONCE IV 10/08/17 11:30 10/08/17 11:31 DC 10/08/17 11:43 100 ML Ketorolac Tromethamine 15 mg ONCE ONCE IVP 10/08/17 11:00 10/08/17 11:02 DC 10/08/17 11:16 15 MG Ondansetron HCl 8 mg ONCE ONCE IVP 10/08/17 09:45 10/08/17 09:46 DC 10/08/17 10:47 4 MG Piperacillin Sod/ Tazobactam Sod 4.5 gm/Sodium Chloride 100 ml @ 200 mls/hr ONCE ONCE IV 10/08/17 11:00 10/08/17 11:29 DC 10/08/17 11:16 200 MLS/HR Sodium Chloride 250 ml ONCE ONCE IV 10/08/17 11:30 10/08/17 11:31 DC 10/08/17 11:43 80 ML Sodium Chloride 1,000 ml @ 0 mls/hr Q0M ONCE IV 10/08/17 09:41 10/08/17 09:43 DC 10/08/17 11:22 0 MLS/HR Sodium Chloride 1,000 ml @ 0 mls/hr Q0M ONCE IV 10/08/17 10:59 10/08/17 11:02 DC 10/08/17 11:16 0 MLS/HR Vital Signs/I&O 10/08/17 09:34 Temp 99.1 Pulse 111 Resp 28 B/P (MAP) 167/76 (106) Pulse Ox 96 Blood Pressure Mean: 106 Progress Progress Note #1: Time: 11:16 Progress Note Patient was promptly assessed and evaluated. Fentanyl was given for pain. Zofran was administered for nausea. A repeat dose of Zofran was given and nausea has resolved. Pain is much improved. Patient appears to have significant infection with elevated CRP and WBC. Chest x-ray revealed the consolidation and/or effusion in the left lower lung. CT is being pursued for further evaluation. Bolus of 2 L of normal saline is being infused. Zosyn has been ordered for initial antibiotic therapy. Blood cultures and lactic acid are being drawn. Case was briefly reviewed with Dr. Mahan who requested a tumor marker beta hCG. Progress Note #2: Time: 12:35 Progress Note Pain is controlled at this time. CT was reviewed with Dr. Anderson. The consolidation in the left lower lung appears to be a dense loculations/fluid. Case was reviewed with Dr. Alfaro will consider thoracentesis. In the meantime patient will be continued on Zosyn. Admission to the ICU was requested due to presence of sepsis and possible need for thoracentesis. Progress Note #3: Time: 15:13 Progress Note Patient was assessed by Dr. Alfaro and Dr. Mahan in the ER. Patient is stable at this time. Dr. Alfaro believes the fluid collection is empyema that needs decortication. He does not believe thoracentesis with sufficiently manage the fluid. Options were discussed with the patient including the potential for transfer to a cardiothoracic surgeon. Dr. Mahan offered to perform in the decortication at this facility. After risks and benefits were discussed at length with the patient and amongst the 3 physicians, patient elects to be admitted at this facility and have Dr. Mahan perform decortication. Since thoracentesis is not being performed and patient is stable at this time, he will be admitted to the medical floor with telemetry. Surgery is anticipated for tomorrow. Patient was given a DuoNeb treatment to help with shortness of breath. Initial ECG Impression Date: October 08, 2017 Initial ECG Impression Time: 09:47 Initial ECG Rate: 107 Initial ECG Rhythm: S.Tach Comment Sinus tachycardia with no ST elevation or depression. No abnormal intervals or axis deviation. Diagnostic Imaging Diagonstic Imaging: Xray Plain Films/CT/US/NM/MRI: chest Comments Chest x-ray viewed by me and report reviewed. See report below: NAME: SHWETA RUIZ [facility] REC#: [id number] PT STATUS: REG ER : 1985 PHYSICIAN: DONTA LÓPEZ MD ADMIT DATE: 10/08/17/ER Draft Date of Exam:10/08/17 CHEST PA/LAT (2 VIEW) Indication: Chest pain. Procedure: PA and lateral chest obtained [id number] hrs. a.m. and compared with 06/12/2017 Findings: There is new extensive pleural thickening and/or fluid in the left lateral pleural space and costophrenic angle. There are some infiltrate or atelectasis in the left lateral base which is new. There is no pneumothorax. Right lung is clear. Impression: New left basilar infiltrate versus atelectasis with left-sided pleural fluid and/or pleural thickening in the left costophrenic angle and lateral pleural space. Consider chest CT as clinically warranted. Dictated on workstation # [id number] Dict: 10/08/17 1013 Trans: 10/08/17 1028 [id number] [id number] Interpreted by: VERONICA COLLINS MD Diagonstic Imaging: CT Plain Films/CT/US/NM/MRI: chest, abdomen, pelvis Comments CT chest, abdomen and pelvis viewed by me and report reviewed. See report below : NAME: SHWETA RUIZ [facility] REC#: [id number] PT STATUS: ADM IN : 1985 PHYSICIAN: DONTA LÓPEZ MD ADMIT DATE: 10/08/17 Signed Date of Exam: 10/08/17 CT CHEST/ABDOMEN/PELVIS W PROCEDURE: CT chest, abdomen, and pelvis with contrast. TECHNIQUE: Multiple contiguous axial images were obtained through the chest, abdomen, and pelvis after the administration of intravenous contrast. INDICATION: Abdominal pain. FINDINGS: The chest exam performed earlier today at 10:22 noted left lower lobe pneumonia/atelectasis and a left pleural effusion. On this study there is indeed some atelectasis/infiltrate in the left lung base as well as a left pleural effusion. The effusion measures 6.5 cm maximum depth. Effusion also appears to extend along the periphery of the left midlung and left upper lung and this may represent either loculated effusion or an early empyema. There is also slight thickening of the pleura along the medial aspect of the left midlung and left upper lung. The left upper lung is otherwise clear. The right lung is also clear and well aerated. The heart size is within normal limits. There are no coronary artery calcifications evident. The aorta is not abnormally dilated and there is no defect within the pulmonary arteries to indicate pulmonary embolus. The pulmonary arteries are not well opacified however. There is no mediastinal or hilar adenopathy. The thyroid gland where visualized is unremarkable. There is increased density in both retroareolar regions. This may be secondary to gynecomastia. The images through the abdomen and pelvis show that in the interval since the prior exam, on 01/27/2009, the patient has undergone a cholecystectomy. The liver, spleen, pancreas, adrenals, kidneys, aorta and inferior vena cava are unremarkable for an acute abnormality. There is no pelvic mass or free fluid collection noted. The urinary bladder and prostate gland are grossly unremarkable. By history, the patient is diagnosed with testicular carcinoma. There is no iliac chain or inguinal adenopathy. There is no abnormal adenopathy involving the retroperitoneum or periaortic region to suggest neoplastic disease. The bone windows show no sign of a fracture or destructive lesion. IMPRESSION: 1. There is left lower lobe atelectasis/infiltrate as well as a sizable loculated effusion involving the left lung base. The possibility that this fluid collection is related to early empyema formation should be considered. 2. There is also some pleural thickening along the medial aspect of the left upper lung. The lungs are otherwise clear. 3. There is no acute abnormality of the abdomen or pelvis. 4. There has been interval cholecystectomy since the prior exam. 5. The results were discussed Dr. López. Dictated by: Dictated on workstation # [id number] Dict: 10/08/17 1208 Trans: 10/08/17 1726 Interpreted by: RAHEL ANDERSON MD Electronically signed by: RAHEL ANDERSON MD 10/08/17 1726 Departure Communication (Admissions) Time/Spoke to Admitting Phy: 12:20 Dr. Allen Time/Spoke to Consulting Phy: 12:15 Dr. Alfaro Impression Primary Impression: Sepsis Qualified Codes: A41.9 - Sepsis, unspecified organism Additional Impressions: Left lower lobe pneumonia Qualified Codes: J18.1 - Lobar pneumonia, unspecified organism Pleural effusion Nausea and vomiting Qualified Codes: R11.2 - Nausea with vomiting, unspecified History of testicular cancer Disposition: ADMITTED INPATIENT Condition: Improved Admissions Decision to Admit Reason: Admit from ER (General) Decision to Admit/Date: October 08, 2017 Time/Decision to Admit Time: 11:00 Departure-Patient Inst. Referrals: NO,LOCAL PHYSICIAN (PCP) Primary Care Physician Scripts No Active Prescriptions or Reported Meds DONTA LÓPEZ MD October 08, 2017 11:11
[2017-10-08] MEDS ORDERED: IOHEXOL 350 MG/ML 100 ML (OMNIPAQUE 350) VIAL IV ONE (11:30)
[2017-10-08] MEDS ORDERED: NS 250 ML (IVPB) BAG IV ONE (11:30)
--- NOTE | 2017-10-08 13:35 | Diagnostic Imaging Report ---
PROCEDURE: CT chest, abdomen, and pelvis with contrast. TECHNIQUE: Multiple contiguous axial images were obtained through the chest, abdomen, and pelvis after the administration of intravenous contrast. INDICATION: Abdominal pain. FINDINGS: The chest exam performed earlier today at 10:22 noted left lower lobe pneumonia/atelectasis and a left pleural effusion. On this study there is indeed some atelectasis/infiltrate in the left lung base as well as a left pleural effusion. The effusion measures 6.5 cm maximum depth. Effusion also appears to extend along the periphery of the left midlung and left upper lung and this may represent either loculated effusion or an early empyema. There is also slight thickening of the pleura along the medial aspect of the left midlung and left upper lung. The left upper lung is otherwise clear. The right lung is also clear and well aerated. The heart size is within normal limits. There are no coronary artery calcifications evident. The aorta is not abnormally dilated and there is no defect within the pulmonary arteries to indicate pulmonary embolus. The pulmonary arteries are not well opacified however. There is no mediastinal or hilar adenopathy. The thyroid gland where visualized is unremarkable. There is increased density in both retroareolar regions. This may be secondary to gynecomastia. The images through the abdomen and pelvis show that in the interval since the prior exam, on 01/27/2009, the patient has undergone a cholecystectomy. The liver, spleen, pancreas, adrenals, kidneys, aorta and inferior vena cava are unremarkable for an acute abnormality. There is no pelvic mass or free fluid collection noted. The urinary bladder and prostate gland are grossly unremarkable. By history, the patient is diagnosed with testicular carcinoma. There is no iliac chain or inguinal adenopathy. There is no abnormal adenopathy involving the retroperitoneum or periaortic region to suggest neoplastic disease. The bone windows show no sign of a fracture or destructive lesion. IMPRESSION: 1. There is left lower lobe atelectasis/infiltrate as well as a sizable loculated effusion involving the left lung base. The possibility that this fluid collection is related to early empyema formation should be considered. 2. There is also some pleural thickening along the medial aspect of the left upper lung. The lungs are otherwise clear. 3. There is no acute abnormality of the abdomen or pelvis. 4. There has been interval cholecystectomy since the prior exam. 5. The results were discussed Dr. López. Dictated by: Dictated on workstation # [id number]
--- NOTE | 2017-10-08 13:56 | Pulmonary Consultation ---
History of Present Illness History of Present Illness Date of Consultation 10/08/17 13:51 Time Seen by Provider: 13:51 Date of Admission History of Present Illness 32yo with hx of testicular cancer s/p orchiectomy by Dr. Montes who presented secondary to SOB, nonproductive cough, and left reproducible CP with radiation down left back that started yesterday. Pain is worse with palpation and deep breathing. Denies fever however pt was diaphoretic upon ED admission. He follows with Dr. Montenegro. I am consulted for pulmonary/CC management. Allergies and Home Medications Allergies Coded Allergies: No Known Drug Allergies (Unverified , 03/28/10) Home Medications Amoxicillin/Potassium Clav 1 Each Tablet, 1 EACH PO BID Prescribed by: LATASHA MONTES on 10/13/17 1100 Hydrocodone Bit/Acetaminophen 1 Tab Tab, 2 TAB PO Q6HR PRN for CHEST PAIN Prescribed by: LATASHA MONTES on 10/13/17 1100 Past Tekkrec-Smwxwd-Wigqrd Hx Patient Social History Alcohol Use: Regular Use Number of Drinks Today: 2 Alcohol Beverage of Choice: Beer Recreational Drug Use: Yes (ALCOHOL) Drug of Choice: MARIJUANA Smoking Status: Current Everyday Smoker Type Used: Cigarettes Recent Foreign Travel: No Contact w/Someone Who Travel: No Recent Infectious Disease Expo: No Recent Hopitalizations: No Physical Abuse: No Sexual Abuse: No Immunizations Up To Date Tetanus Booster (TDap): Unknown Seasonal Allergies Seasonal Allergies: No Past Medical History Surgeries: Yes (Bilat ear tubes, right orchiectomy) Adenoidectomy, Tonsillectomy Respiratory: No Cardiac: No Neurological: No Reproductive Disorders: Yes (testicular cancer) Gastrointestinal: No Gall Bladder Disease Musculoskeletal: No Endocrine: No Loss of Vision: Denies Hearing Impairment: Denies Cancer: Yes Testicular What Type of Treatment Did You: Surgical Intervention Psychosocial: Yes ADD/ADHD, Depression Nursing Suicide Risk Score: 0 Integumentary: No Blood Disorders: No Review of Systems Time Seen by Provider: 07:33 Constitutional: Fever, Chills, Sweats, Weakness, Malaise Eyes: No: Pain, Vision change, Conjunctivae inflammation, Eyelid inflammation, Other, Redness ENT: No: Ear pain, Ear discharge, Nose pain, Nose discharge, Nose congestion, Mouth pain, Mouth swelling, Throat pain, Throat swelling, Other Respiratory: Cough, Shortness of breath, SOB with excertion, Pleuritic Pain, Sputum Cardiovascular: Chest Pain, Paroxysmal Noc. Dyspnea Gastrointestinal: No: Nausea, Vomiting, Abdominal Pain, Diarrhea, Constipation , Melena, Hematochezia, Other Genitourinary: No Dysuria, No Frequency, No Incontinence, No Hematuria, No Retention, No Other Neurological: Weakness Exam Exam Vital Signs Date Time Temp Pulse Resp B/P (MAP) Pulse Ox O2 Delivery O2 Flow Rate FiO2 10/08/17 09:34 99.1 111 28 167/76 (106) 96 General Appearance: WD/WN, Moderate Distress HEENT: PERRL/EOMI, Normal ENT Inspection, Pharynx Normal Neck: Normal Inspection Respiratory: Lungs Clear, Normal Breath Sounds, No Accessory Muscle Use, No Respiratory Distress Cardiovascular: No Edema, No Murmur, Tachycardia Capillary Refill: Less Than 3 Seconds Extremity: Normal Inspection, Non Tender, No Calf Tenderness, No Pedal Edema Neurologic/Psychiatric: Alert, Oriented x3, No Motor/Sensory Deficits, Normal Mood/Affect, 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 Vyas for decortication. Pt prefers to stay here vs transfer for thoracic surgery. -Will have pleural fluid sent for analysis and cytology Hx of testicular cancer s/p orchiectomy WILIAN JOSHI DO October 08, 2017 13:56
[2017-10-08] MEDS ORDERED: RT-ALBUTEROL/IPRATROPIUM 3 ML (DUONEB) VIAL INH ONE (15:15)
--- OUTSIDE RECORDS SUMMARY | 2017-10-08 15:33 | XMS REPORT | Clinical Summary ---
Author Author [facility] Organization [facility] Address Unknown Phone Unavailable Care Team Providers Care Good[employer] Welter Name Role Phone No Pcp, Na PCP Unavailable Source Comments Some departments are not documenting in the electronic medical record. If you do not see the information that you expected, contact Release of Information in the Health Information Management department at [phone] for further assistance in locating additional records.[facility] Allergies No Known Allergies Current Medications [...] Taken Blood Pressure 137/71 07/10/2017 2:37 PM [facility] [employer]ICE BROKER Pulse 92 07/10/2017 2:37 PM [employer]OKER Temperature 36.6 C (97.9 F) 07/02/2017 9:35 AM [employer]OKER Respiratory Rate - - Oxygen Saturation 98% 07/02/2017 10:15 AM [employer] BROKER Inhaled Oxygen - - Concentration Weight 98 kg (216 lb) 07/10/2017 2:37 PM [employer]ICE BROKER Height 167.6 cm (5' 6") 07/10/2017 2:37 PM [employer]ICE BROKER Body Mass Index 34.86 07/10/2017 2:37 PM [employer]ICE BROKER Plan of Treatment Health Maintenance Due Date Last Done Comments PHYSICAL (COMPREHENSIVE) 1991 EXAM PERTUSSIS VACCINE 1995 HIV SCREENING 1999 TETANUS VACCINE 2001 INFLUENZA VACCINE 03/04/2018 Results Not on filefrom Last 3 Months
--- OUTSIDE RECORDS SUMMARY | 2017-10-08 15:33 | XMS REPORT | Continuity of Care Document ---
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 Name Role Phone [employer] Unavailable Unavailable Problems Medications Allergies, Adverse Reactions, Alerts Immunizations Results Vital Signs Encounters Location Location Details Encounter Type Encounter Number Reason For Visit Attending Provider ADM Date DC Date Status Source OUTPATIENT [id number] 06/26/2017 Active [facility] OUTPATIENT [id number] 06/26/2017 Active [facility] OP SURGERY [id number] [place]ITE 07/02/2017 07/02/2017 Active [facility] OUTPATIENT [id number] [place]N WHITE 07/10/2017 07/10/2017 Active [facility] O SHAWN WHITE Active [facility] Procedures Plan of Care Social History Assessment and Plan Family History Advance Directives Functional Status
--- NOTE | 2017-10-08 15:39 | Consultation ---
History of Present Illness History of Present Illness Patient Consulted On(kelly/time) 10/08/17 15:33 Time Seen by Provider: 14:46 History of Present Illness Surgery is asked to consult regarding Empyema; possible need for Decortication HPI per ED: This 32-year-old gentleman presents to the emergency room with primary complaint of left-sided chest pain that radiates all the way down to his left lower back. He has a very tender to palpation of the chest wall and breathing is painful. He is tachycardic. He is also very dyspneic. He has had productive cough. He has had nausea and vomiting that has now turned to dry heaves. He is diaphoretic but denies fever. Patient has a history of right testicular cancer status post orchiectomy. He is otherwise relatively healthy. Dr. Montenegro is his oncologist. When I spoke to pt he was coughing, states it is not productive at this time. His pain is rated as an 5 out of 10, but will shoot up to 8 or 9. He thinks this has been going of for a week or so. He describes the pain as very sharp; worse when he coughs and with certain movements. Allergies and Home Medications Allergies Coded Allergies: No Known Drug Allergies (Unverified , 03/28/10) Home Medications Hydrocodone/Acetaminophen 1 Each Tablet, 1 TAB PO Q8H Prescribed by: LATASHA MONTES on 07/30/17 1022 Patient Home Medication List Home Medication List Reviewed: Yes Past Vehuavl-Zcautp-Fjqrqo Hx Patient Social History Alcohol Use: Regular Use Number of Drinks Today: 2 Recreational Drug Use: Yes (ALCOHOL) Drug of Choice: MARIJUANA Smoking Status: Current Everyday Smoker Type Used: Cigarettes Recent Foreign Travel: No Contact w/Someone Who Travel: No Recent Infectious Disease Expo: No Recent Hopitalizations: No Immunizations Up To Date Tetanus Booster (TDap): Unknown Seasonal Allergies Seasonal Allergies: No Surgeries History of Surgeries: Yes (Bilat ear tubes, right orchiectomy) Surgeries: Adenoidectomy, Tonsillectomy Respiratory History of Respiratory Disorde: No Cardiovascular History of Cardiac Disorders: No Neurological History of Neurological Disord: No Reproductive System Hx Reproductive Disorders: Yes (testicular cancer) Gastrointestinal History of Gastrointestinal Di: No Gastrointestinal Disorders: Gall Bladder Disease Musculoskeletal History of Musculoskeletal Dis: No Endocrine History of Endocrine Disorders: No HEENT Loss of Vision: Denies Hearing Impairment: Denies Cancer History of Cancer: Yes Cancer: Testicular Psychosocial History of Psychiatric Problem: Yes Behavioral Health Disorders: ADD/ADHD, Depression Integumentary History of Skin or Integumenta: No Blood Transfusions History of Blood Disorders: No Family Medical History Significant Family History: Cancer (Father had testicular cancer), Diabetes ( Mother) Review of Systems-General Constitutional: chills, diaphoresis, weakness, weight loss EENTM: No blurred vision, No double vision, No mouth pain, No mouth swelling, No epistaxis, No throat swelling Respiratory: cough, dyspnea on exertion; No hemoptysis; phlegm, short of breath Cardiovascular: chest pain; No edema, No palpitations Gastrointestinal: No abdominal pain, No constipation, No diarrhea Genitourinary: No dysuria, No frequency, No hematuria Musculoskeletal: back pain; No joint pain, No joint swelling; muscle stiffness Skin: No change in color, No change in hair/nails Psychiatric/Neurological: Denies Anxiety, Denies Depressed Other Pt denies any abnormal bleeding or bruising. Pt denies any heat or cold intolerance. Physical Exam-General Problems Physical Exam Vital Signs Vital Signs - First Documented 10/08/17 09:34 Temp 99.1 Pulse 111 Resp 28 B/P (MAP) 167/76 (106) Pulse Ox 96 Capillary Refill : Less Than 3 Seconds General Appearance: WD/WN, moderate distress, obese Eyes: Bilateral Eye PERRL, Bilateral Eye EOMI HEENT: pharynx normal; No scleral icterus (R), No scleral icterus (L), No pale conjunctivae (R), No pale conjunctivae (L) Neck: full range of motion, normal inspection; No thyromegaly Respiratory: respiratory distress, decreased breath sounds (Left with dullness to percussion), accessory muscle use, crackles (left), plerual rub Cardiovascular: no edema, no JVD, no murmur, tachycardia Gastrointestinal: normal bowel sounds, non tender, soft, no organomegaly, no pulsatile mass Rectal: deferred Back: normal inspection, no CVA tenderness, vertebral tenderness (left) Extremities: normal range of motion, normal inspection, no pedal edema, no calf tenderness 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, no motor/sensory deficits, alert, normal mood/affect, oriented x 3 Skin: normal color, warm/dry Lymphatic: no adenopathy (neck axilla or groin) Data Review Labs Laboratory Tests 10/08/17 09:40: White Blood Count 27.7H, Red Blood Count 4.98, Hemoglobin 15.4, Hematocrit 44, Mean Corpuscular Volume 88, Mean Corpuscular Hemoglobin 31, Mean Corpuscular Hemoglobin Concent 35, Red Cell Distribution Width 13.3, Platelet Count 395, Mean Platelet Volume 10.4, Neutrophils (%) (Auto) 86H, Lymphocytes (%) (Auto) 5L , Monocytes (%) (Auto) 9, Eosinophils (%) (Auto) 0, Basophils (%) (Auto) 0, Neutrophils # (Auto) 23.7H, Lymphocytes # (Auto) 1.4, Monocytes # (Auto) 2.5H, Eosinophils # (Auto) 0.0, Basophils # (Auto) 0.1, Neutrophils % (Manual) 86, Lymphocytes % (Manual) 7, Monocytes % (Manual) 3, Eosinophils % (Manual) 0, Basophils % (Manual) 0, Band Neutrophils 4, Blood Morphology Comment NORMAL, Sodium Level 131L, Potassium Level 4.7, Chloride Level 102, Carbon Dioxide Level 17L, Anion Gap 12, Blood Urea Nitrogen 10, Creatinine 0.89, Estimat Glomerular Filtration Rate > 60, BUN/Creatinine Ratio 11, Glucose Level 105, Calcium Level 9.7, Total Bilirubin 0.9, Aspartate Amino Transf (AST/SGOT) 15, Alanine Aminotransferase (ALT/SGPT) 12, Alkaline Phosphatase 112, C-Reactive Protein High Sensitivity 30.70H, Total Protein 7.5, Albumin 3.8 10/08/17 11:28: Lactic Acid Level 0.84 Microbiology 10/08/17 Influenza Types A,B Antigen (ELIJAH) - Final, Complete Assessment/Plan Assessment/Plan Assessment/Plan Pneumonia left lung Suspected Empyema left lung Hx of Testicular cancer Plan is to admit with IV fluids, IV ABX, npo, pain control, monitor pulse ox and place on O2 if it drops below 92%. Pt needs lung drained and possible decortication. We will attempt this Video Assisted Thoracoscopic Surgery. I discussed this with the patient; risks and complications not limited to pain, bleeding, infection, scar and damage to lung. He will definitely have at least one chest tube, possibly two. We may also have to switch to open. All questions answered to his satisfaction. Clinical Quality Measures AMI/AHF: ASA po Prior to arrival: LATASHA Joseph DO October 08, 2017 15:39
[2017-10-08 15:50] VITALS: BP 148/67
[2017-10-08] MEDS: NS IV 1000 ML 1,000 ML IV SCH (16:39)
[2017-10-08] MEDS: fentaNYL INJECTION 100 MCG/2 ML AMP IV PRN ×3 (16:39→21:26)
[2017-10-08] MEDS ORDERED: CATHETER FLUSH 10 ML SYR IV PRN (16:45)
[2017-10-08] MEDS: PIPERACILLIN SODIUM/TAZOBACTAM 4.5 GM in NS (IVPB) 100 ML IV SCH (18:37)
[2017-10-08] MEDS: NICOTINE 21 MG (NICODERM) PATCH TD SCH (18:37)
[2017-10-08 19:16] VITALS: BP 128/69
[2017-10-08] MEDS: ONDANSETRON 4 MG/2 ML (SDV) Z0FRAN IV PRN (23:50)
[2017-10-09] VITALS (12 sets, daily range): BP systolic 105–144; BP diastolic 57–82
[2017-10-09] MEDS: NS IV 1000 ML 1,000 ML IV SCH ×3 (02:47→19:55)
[2017-10-09] MEDS: PIPERACILLIN SODIUM/TAZOBACTAM 4.5 GM in NS (IVPB) 100 ML IV SCH ×3 (03:06→19:55)
--- NOTE | 2017-10-09 07:35 | Pulmonary Progress Note ---
Subjective Time Seen by Provider: 07:34 Subjective/Events-last exam plan is for surgery today. Focused Exam Lactate Level 10/08/17 11:28: Lactic Acid Level 0.84 Exam Exam Vital Signs Date Time Temp Pulse Resp B/P (MAP) Pulse Ox O2 Delivery O2 Flow Rate FiO2 10/09/17 03:48 97.6 95 19 109/57 (74) 94 Room Air 10/09/17 01:00 93 10/09/17 00:00 99.3 105 23 129/58 (81) 94 Room Air 10/08/17 21:00 Room Air 10/08/17 19:16 99.1 105 24 128/69 (88) 96 Room Air 10/08/17 19:00 104 10/08/17 16:00 Room Air 10/08/17 15:50 100.8 107 30 148/67 (94) 96 Room Air 10/08/17 15:47 99.1 111 28 144/87 (106) 98 Room Air 10/08/17 15:33 98 Room Air 10/08/17 13:00 99.1 111 28 167/76 96 10/08/17 09:34 99.1 111 28 167/76 (106) 96 I & O 10/09/17 07:00 Intake Total 1140 ml Balance 1140 ml General Appearance: WD/WN, Moderate Distress HEENT: PERRL/EOMI, Normal ENT Inspection, Pharynx Normal Neck: Normal Inspection Respiratory: Lungs Clear, Normal Breath Sounds, No Accessory Muscle Use, No Respiratory Distress Cardiovascular: No Edema, No Murmur, Tachycardia Capillary Refill: Less Than 3 Seconds Gastrointestinal: normal bowel sounds, non tender, soft, no organomegaly, no pulsatile mass Extremity: Normal Inspection, Non Tender, No Calf Tenderness, No Pedal Edema Neurologic/Psychiatric: Alert, Oriented x3, No Motor/Sensory Deficits, Normal Mood/Affect, shactor II-XII Norm as Tested Skin: Normal Color, Warm/Dry Results Lab Laboratory Tests 10/08/17 09:40 Assessment/Plan Assessment/Plan Pneumonia with probable empyema -Continue Annabellan -Dr. Vyas is planning decortication today -Will have pleural fluid sent for analysis and cytology Hx of testicular cancer s/p orchiectomy 232 WILIAN JOSHI DO October 09, 2017 07:35
[2017-10-09] MEDS: NICOTINE PATCH REMOVAL TP SCH (08:46)
[2017-10-09] MEDS: NICOTINE 21 MG (NICODERM) PATCH TD SCH (08:46)
[2017-10-09] MEDS: fentaNYL INJECTION 100 MCG/2 ML AMP IV PRN ×3 (08:46→23:22)
[2017-10-09 08:57] LABS: BASOPHILS % (AUTO) 0 % (0-10); EOSINOPHILS # (AUTO) 0.1 10^3/uL (0.0-0.3); EOSINOPHILS % (AUTO) 0 % (0-10); HEMATOCRIT 40 % (40-54); HEMOGLOBIN 13.3 G/DL (13.3-17.7); LYMPHOCYTES # (AUTO) 1.1 X 10^3 (1.0-4.0); LYMPHOCYTES % (AUTO) 6 % (12-44); MEAN CORPUSCULAR HEMOGLOBIN 31 PG (25-34); MEAN CORPUSCULAR HGB CONC 34 G/DL (32-36); MEAN CORPUSCULAR VOLUME 91 FL (80-99); MEAN PLATELET VOLUME 10.7 FL (7.4-10.4); MONOCYTES # (AUTO) 1.8 X 10^3 (0.0-1.0); MONOCYTES % (AUTO) 10 % (0-12); NEUTROPHILS # (AUTO) 14.8 X 10^3 (1.8-7.8); NEUTROPHILS % (AUTO) 83 % (42-75); PLATELET COUNT 299 10^3/uL (130-400); RED BLOOD COUNT 4.34 10^6/uL (4.35-5.85); RED CELL DISTRIBUTION WIDTH 13.8 % (10.0-14.5); WHITE BLOOD COUNT 17.8 10^3/uL (4.3-11.0)
[2017-10-09 09:21] LABS: ALANINE AMINOTRANSFERASE 9 U/L (0-55); ALKALINE PHOSPHATASE 94 U/L (40-136); BILIRUBIN,TOTAL 0.8 MG/DL (0.1-1.0); BUN/CREATININE RATIO 11; CALCIUM 8.5 MG/DL (8.5-10.1); CARBON DIOXIDE 20 MMOL/L (21-32); CHLORIDE 109 MMOL/L (98-107); CREATININE SERUM 0.81 MG/DL (0.60-1.30); GFR ESTIMATED > 60; GLUCOSE 111 MG/DL (70-105); MAGNESIUM 1.8 MG/DL (1.8-2.4); SODIUM 137 MMOL/L (135-145); TOTAL PROTEIN 5.8 GM/DL (6.4-8.2)
[2017-10-09] MEDS ORDERED: CELECOXIB 100 MG (CeleBREX) CAP PO ONE (09:45)
[2017-10-09] MEDS ORDERED: CELECOXIB 100 MG (CeleBREX) CAP PO NR (09:45)
--- NOTE | 2017-10-09 11:53 | History & Physical-Hospitalist ---
History of Present Illness HPI/Chief Complaint Mr. Petit is a 32-year-old white male who was in his usual state of reasonable health up until about a week ago when he noted the onset of fatigue with cough. He reported that his sputum was milky white without evidence for blood or other color. He continued to feel fatigued with some low-grade fever and some occasional night sweats. He developed the onset of pleuritic chest pain roughly 24 hours prior to his admission on the left side that progressively got worse causing him to present to the emergency room. Recent past medical history is significant for a one-year history of dental pain resulting in a dental abscess that appears to have involved his left upper 12th year molar it was severely decayed and he underwent dental extraction 2 weeks ago and had resolution of pain post procedure. He was diagnosed with some form of testicular cancer although it does appear to be a lower grade malignancy for which orchiectomy alone unilateral was performed with no evidence for recurrence thus far. Patient has denied any problems with testicular pain or scrotal swelling he also denies any problems with inguinal adenopathy. He has no known past history of pneumonia. Source: patient Exam Limitations: no limitations Date Seen 10/09/17 Time Seen by Provider: 09:00 Attending Physician Cristhian Leon M.D. PCP No,Local Physician Referring Physician Date of Admission October 08, 2017 at 12:25 Home Medications & Allergies Home Medications Reviewed patient Home Medication Reconciliation performed by pharmacy medication reconciliations dialysis equipment technician and/or nursing. Patients Allergies have been reviewed. Allergies Allergies Coded Allergies No Known Drug Allergies (Umpxydtdmj05/25/10) Past Awtkdup-Ullkjw-Proqyu Hx Past Med/Social Hx: Reviewed and Corrections made Patient Social History Alcohol Use: Denies Use Number of Drinks Today: 2 Alcohol Beverage of Choice: Beer Recreational Drug Use: Yes Drug of Choice: MARIJUANA Smoking Status: Current Everyday Smoker Type Used: Cigars, Cigarettes Physical Abuse Screen: No Sexual Abuse: No Recent Foreign Travel: No Contact w/other who traveled: No Recent Hopitalizations: No Recent Infectious Disease Expo: No Immunizations Up To Date Tetanus Booster (TDap): Unknown Pediatric: Yes Seasonal Allergies Seasonal Allergies: No Past Medical History Surgeries: Adenoidectomy, Gallbladder, Tonsillectomy Currently Using CPAP: No Currently Using BIPAP: No Reproductive: Yes (testicular cancer) Gastrointestinal: Gall Bladder Disease Loss of Vision: Denies Hearing Impairment: Denies Cancer: Testicular Did You Recieve Any Treatments: Yes What Type of Treatment Did You: Surgical Intervention Psychosocial: ADD/ADHD, Anxiety, Depression History of Blood Disorders: No Family History Cancer (Father had testicular cancer), Diabetes (Mother) Review of Systems Constitutional: diaphoresis, fever, malaise, weakness Respiratory: No no symptoms reported, No see HPI; cough, dyspnea on exertion; No hemoptysis, No orthopnea; phlegm (Reportedly nonpurulent no blood); No short of breath, No stridor; wheezing; No other Cardiovascular: see HPI, chest pain (Left sided and pleuritic in etiology); No edema, No Hx of Intervention, No palpitations, No syncope, No vascular heart diseas, No other Gastrointestinal: other (No abdominal pain or nausea reported no reported diarrhea or constipation.) Physical Exam Physical Exam Vital Signs Vital Signs - First Documented 10/08/17 10/08/17 09:34 15:33 Temp 99.1 Pulse 111 Resp 28 B/P (MAP) 167/76 (106) Pulse Ox 96 O2 Delivery Room Air Capillary Refill : Less Than 3 Seconds General Appearance: Anxious, Moderate Distress (Standing is is more comfortable with a nonproductive cough that causes splinting and pain), Obese Neck: Full Range of Motion, Normal Inspection, Non Tender, Supple; No Carotid Bruit, No JVD, No Limited Range of Motion, No Lymphadenopathy (L), No Lymphadenopathy (R), No Thyromegaly Respiratory: No Accessory Muscle Use, Other (Neck and only diminished breath sounds throughout the left lung normal breath sounds on the right. Mild expiratory wheezing on the left side with cough normal breath sounds on right) Cardiovascular: Regular Rate, Rhythm, No Edema, No Gallop, No JVD, No Murmur, Normal Peripheral Pulses, Tachycardia Gastrointestinal: Normal Bowel Sounds, No Organomegaly, No Pulsatile Mass, Non Tender, Soft Extremity: Normal Capillary Refill, Normal Inspection, Normal Range of Motion, Non Tender, No Calf Tenderness, No Pedal Edema Skin: Damp Results Results/Procedures Labs Laboratory Tests 10/08/17 09:40 10/09/17 08:18 Patient resulted labs reviewed. Assessment/Plan Admission Diagnosis 1. Likely left lower lobe pneumonia with complicated left sided empyema. Anaerobic organisms considering history of recent dental abscess requiring tooth extraction is likely we'll continue Zosyn. Patient is being scheduled for VAT with likely need for chest tube placement and drainage postprocedure being discussed with the patient. 2. History of testicular cancer being followed by Dr. Giordano. Doubt this current hospitalization represents recurrence with no evidence for adenopathy or mass on CT scan of the abdomen pelvis and chest. Admission Status: Inpatient Order (span 2 midnights) Reason for Inpatient Admission: See admission diagnosis will need multiple days of IV antibiotics and likely chest tube drainage. Assessment and Plan See admission diagnosis Clinical Quality Measures AMI/AHF: ASA po Prior to arrival: No DVT/VTE Risk/Contraindication: Risk Factor Score Per Nursin RFS Level Per Nursing on Admit: 4+=Very High Copy Copies To 1: LUIS ANTONIO GIORDANO MD, MARK D MD October 09, 2017 11:53
[2017-10-09] MEDS ORDERED: LIDOCAINE PF 2% 5 ML (XYLOCAINE) VIAL ONE (12:15)
[2017-10-09] MEDS ORDERED: LIDOCAINE JELLY 2% (XYLOCAINE) 5 ML TUBE ONE (12:15)
[2017-10-09] MEDS ORDERED: proPOfol 200 MG/20 ML (DIPRIVAN) VIAL IV ONE ×2 (12:15→14:26)
[2017-10-09] MEDS ORDERED: ONDANSETRON 4 MG/2 ML (SDV) Z0FRAN ONE (12:15)
[2017-10-09] MEDS ORDERED: ROCURONIUM 10 MG/ML 5 ML SYRINGE IV ONE ×3 (12:15→15:30)
[2017-10-09] MEDS ORDERED: fentaNYL INJECTION 250 MCG/5 ML AMP ONE (12:16)
[2017-10-09] MEDS ORDERED: MIDAZOLAM 2 MG/2 ML (VERSED) VIAL ONE ×2 (12:16)
[2017-10-09] MEDS ORDERED: LIDOCAINE/EPI 1%-1:200,000 (XYLOCAINE) 10 ML VIAL ONE ×2 (12:45→12:47)
[2017-10-09] MEDS: LACTATED RINGERS 1,000 ML IV PRN ×2 (13:25→14:15)
[2017-10-09] MEDS ORDERED: SEVOFLURANE (ULTANE) 15 ML INHAL SOLN ONE ×2 (14:27→16:33)
[2017-10-09] MEDS ORDERED: HYDROmorphone 2 MG/ML VIAL (DILAUDID) ONE (14:37)
[2017-10-09] MEDS ORDERED: DOXYCYCLINE 500 MG IR ONE ×4 (15:30)
[2017-10-09] MEDS ORDERED: LIDOCAINE IR ONE ×4 (15:30)
[2017-10-09] MEDS ORDERED: SODIUM CHLORIDE IR ONE ×4 (15:30)
[2017-10-09 15:31] LABS: GLUCOSE,BODY FLUID 8 MG/DL; LDH,BODY FLUID 2036 U/L; TOTAL PROTEIN,BODY FLUID 4.5 G/DL
[2017-10-09 15:32] LABS: BODY FLUID PH 7.3
[2017-10-09] MEDS ORDERED: HYDROmorphone 2 MG/ML VIAL (DILAUDID) IVP PRN (15:45)
[2017-10-09] MEDS ORDERED: MEPERIDINE (DEMEROL) INJ 50 MG/ML IVP PRN (15:45)
[2017-10-09] MEDS ORDERED: ONDANSETRON 4 MG/2 ML (SDV) Z0FRAN IVP PRN (15:45)
[2017-10-09 15:53] LABS: BODY FLUID APPEARENCE SLT BLDY; BODY FLUID COLOR RED; BODY FLUID RBC COUNT 16650 /uL; BODY FLUID SOURCE PLEURAL; BODY FLUID WBC TOTAL COUNT 2745 /uL
[2017-10-09] MEDS ORDERED: GLYCOPYRROLATE 0.2 MG/ML (ROBINUL) 2 ML VIAL ONE (16:00)
[2017-10-09] MEDS ORDERED: NEOSTIGMINE 1 MG/ML 5 ML SYRINGE ONE (16:00)
[2017-10-09] MEDS ORDERED: ROPIVACAINE 5MG/ML 30ML VIAL ONE (16:00)
[2017-10-09 16:05] LABS: BF OTHER CELLS 4 %; LYMPHOCYTES,BODY FLUID 27 %
--- NOTE | 2017-10-09 16:06 | Progress Note-Post Operative ---
Post-Operative Progess Note Surgeon (s)/Loan Secretary (s) Surgeon LATASHA MONTES DO Loan Secretary: Arjun Pre-Operative Diagnosis Empyema Post-Operative Diagnosis Empyema with lung entrapment, covering upper and lower lobes Procedure & Operative Findings Date of Procedure 10/09/17 Procedure Performed/Findings VATS decortication of two lobes Pleurodesis with Doxycycline Anesthesia Type GET Estimated Blood Loss Estimated blood loss (mL): minimal Specimens/Packing Specimens Removed fluid for culture, cell count and cytology lung peel for culture LATASHA MONTES DO October 09, 2017 16:06
[2017-10-09] MEDS ORDERED: BUPIVACAINE 0.5% 30 ML (SENSORCAINE) VIAL ONE (16:30)
[2017-10-09] MEDS: morphine INJ 10 MG/ML 1ML (SYR OR VIAL) IVP PRN ×2 (16:40→16:50)
--- NOTE | 2017-10-09 17:07 | Diagnostic Imaging Report ---
INDICATION: Lung decortication. COMPARISON STUDY: Chest from 10/08/2017. FINDINGS: Portable view of the chest demonstrates interval left chest tube placement with no pneumothorax. Subcutaneous air is seen along the chest tube tract. Pleural thickening adjacent to the chest tube is again seen. The heart size and vascularity are normal. IMPRESSION: Interval left chest tube placement with small amount of subcutaneous air. Pleural thickening is again identified. Dictated by: Dictated on workstation # [id number]
[2017-10-09] MEDS ORDERED: CELECOXIB 100 MG (CeleBREX) CAP PO SCH (21:00)
[2017-10-10] VITALS (14 sets, daily range): BP systolic 110–158; BP diastolic 63–86
[2017-10-10] MEDS: fentaNYL INJECTION 100 MCG/2 ML AMP IV PRN ×4 (00:59→08:33)
[2017-10-10] MEDS: NS IV 1000 ML 1,000 ML IV SCH ×2 (02:43→13:36)
[2017-10-10] MEDS: PIPERACILLIN SODIUM/TAZOBACTAM 4.5 GM in NS (IVPB) 100 ML IV SCH ×3 (03:15→20:15)
[2017-10-10 03:37] LABS: BASOPHILS % (AUTO) 0 % (0-10); EOSINOPHILS % (AUTO) 0 % (0-10); HEMATOCRIT 36 % (40-54); HEMOGLOBIN 12.4 G/DL (13.3-17.7); LYMPHOCYTES # (AUTO) 1.5 X 10^3 (1.0-4.0); LYMPHOCYTES % (AUTO) 7 % (12-44); MEAN CORPUSCULAR HEMOGLOBIN 31 PG (25-34); MEAN CORPUSCULAR HGB CONC 34 G/DL (32-36); MEAN CORPUSCULAR VOLUME 90 FL (80-99); MEAN PLATELET VOLUME 10.2 FL (7.4-10.4); MONOCYTES # (AUTO) 1.5 X 10^3 (0.0-1.0); MONOCYTES % (AUTO) 7 % (0-12); NEUTROPHILS # (AUTO) 17.1 X 10^3 (1.8-7.8); NEUTROPHILS % (AUTO) 85 % (42-75); PLATELET COUNT 324 10^3/uL (130-400); RED BLOOD COUNT 4.01 10^6/uL (4.35-5.85); RED CELL DISTRIBUTION WIDTH 13.6 % (10.0-14.5); WHITE BLOOD COUNT 20.1 10^3/uL (4.3-11.0)
[2017-10-10 03:56] LABS: BUN/CREATININE RATIO 7; CALCIUM 8.2 MG/DL (8.5-10.1); CARBON DIOXIDE 21 MMOL/L (21-32); CHLORIDE 105 MMOL/L (98-107); CREATININE SERUM 0.74 MG/DL (0.60-1.30); GFR ESTIMATED > 60; GLUCOSE 108 MG/DL (70-105); MAGNESIUM 1.7 MG/DL (1.8-2.4); PHOSPHORUS 2.9 MG/DL (2.3-4.7); POTASSIUM 3.7 MMOL/L (3.6-5.0); SODIUM 136 MMOL/L (135-145)
[2017-10-10] MEDS: MAGNESIUM 1 GM/100 ML IVPB 100 ML IV SCH ×2 (05:38→06:48)
[2017-10-10] MEDS ORDERED: MAGNESIUM 1 GM/100 ML IVPB 100 ML IV SCH (06:00)
[2017-10-10] MEDS ORDERED: POTASSIUM CL 10MEQ/50ML IVPB 50 ML IV SCH (06:00)
[2017-10-10] MEDS ORDERED: KCL 20 MEQ TAB (K-DUR) PO SCH (06:00)
--- NOTE | 2017-10-10 06:00 | Pulmonary Progress Note ---
Subjective Time Seen by Provider: 06:08 Subjective/Events-last exam PT complains of pain. Focused Exam Lactate Level 10/08/17 11:28: Lactic Acid Level 0.84 Exam Exam Vital Signs Date Time Temp Pulse Resp B/P (MAP) Pulse Ox O2 Delivery O2 Flow Rate FiO2 10/10/17 05:00 91 18 144/75 (98) 97 Nasal Cannula 2.00 10/10/17 04:00 90 22 141/75 (97) 97 Nasal Cannula 2.00 10/10/17 04:00 96 Nasal Cannula 2.00 10/10/17 03:00 88 13 113/64 (80) 99 Nasal Cannula 2.00 10/10/17 02:00 86 22 119/63 (81) 98 Nasal Cannula 2.00 10/10/17 01:00 96 20 110/77 (88) 97 Nasal Cannula 2.00 10/10/17 01:00 92 10/10/17 00:00 90 20 121/65 (83) 97 Nasal Cannula 2.00 10/10/17 00:00 97 Nasal Cannula 2.00 10/09/17 23:00 98 11 117/73 (88) 98 Nasal Cannula 2.00 10/09/17 22:00 93 20 116/65 (82) 98 Nasal Cannula 2.00 10/09/17 21:00 92 22 120/69 (86) 97 Nasal Cannula 2.00 10/09/17 20:00 97 Nasal Cannula 2.00 10/09/17 20:00 93 19 123/70 (87) 98 Nasal Cannula 2.00 10/09/17 19:53 99.0 96 16 105/82 (90) 96 Nasal Cannula 2.00 10/09/17 19:00 96 13 129/81 (97) 97 Room Air 10/09/17 19:00 97 10/09/17 18:00 93 18 114/74 (87) 97 Room Air 10/09/17 17:21 95 10/09/17 17:15 98 16 122/80 (94) 96 Room Air 10/09/17 17:15 96.8 Room Air 10/09/17 11:59 99.2 103 22 144/69 (94) 95 Room Air 10/09/17 09:00 Room Air 10/09/17 08:00 97.8 92 20 131/70 (90) 95 Room Air 10/09/17 07:00 96 I & O 10/10/17 07:00 Intake Total 2480 ml Output Total 600 ml Balance 1880 ml General Appearance: Anxious, Mild Distress (secondary to pain with coughing and deep breathing ), Obese HEENT: PERRL/EOMI, Normal ENT Inspection, Pharynx Normal Neck: Full Range of Motion, Normal Inspection, Non Tender, Supple; No Carotid Bruit, No JVD, No Limited Range of Motion, No Lymphadenopathy (L), No Lymphadenopathy (R), No Thyromegaly Respiratory: No Accessory Muscle Use, Other (Neck and only diminished breath sounds throughout the left lung normal breath sounds on the right. 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 -IF ok with surgery consult anesthesia for epidural. -Start IS -SVNS -Chest tube management per surgery -pleural fluid sent for analysis and cytology Hypomagnesemia -replace Hx of testicular cancer s/p orchiectomy 233 WILIAN JOSHI DO October 10, 2017 06:00
[2017-10-10] MEDS ORDERED: RT-ALBUTEROL/IPRATROPIUM 3 ML (DUONEB) VIAL ONE (06:21)
--- NOTE | 2017-10-10 08:13 | Anesthesia-General Post-Op ---
General Patient Condition Mental Status/LOC: Same as Preop Cardiovascular: Satisfactory Nausea/Vomiting: Absent Respiratory: Satisfactory Pain: Controlled Complications: Absent Post Op Complications Complications None Follow Up Care/Instructions Patient Instructions None needed. Anesthesia/Patient Condition Patient Condition Patient is doing well, no complaints, stable vital signs, no apparent adverse anesthesia problems. No complications reported per nursing. STEFAN ABREU CRNA October 10, 2017 08:13
[2017-10-10] MEDS ORDERED: HYDROcodone/APAP 5 MG/325 MG (LORTAB) TAB PO NR (08:30)
--- NOTE | 2017-10-10 08:30 | Progress Note-Hospitalist ---
Subjective HPI/CC On Admission Date Seen by Provider: October 10, 2017 Time Seen by Provider: 08:29 Mr. Petit is a 32-year-old white male who was in his usual state of reasonable health up until about a week ago when he noted the onset of fatigue with cough. He reported that his sputum was milky white without evidence for blood or other color. He continued to feel fatigued with some low-grade fever and some occasional night sweats. He developed the onset of pleuritic chest pain roughly 24 hours prior to his admission on the left side that progressively got worse causing him to present to the emergency room. Recent past medical history is significant for a one-year history of dental pain resulting in a dental abscess that appears to have involved his left upper 12th year molar it was severely decayed and he underwent dental extraction 2 weeks ago and had resolution of pain post procedure. He was diagnosed with some form of testicular cancer although it does appear to be a lower grade malignancy for which orchiectomy alone unilateral was performed with no evidence for recurrence thus far. Patient has denied any problems with testicular pain or scrotal swelling he also denies any problems with inguinal adenopathy. He has no known past history of pneumonia. Subjective/Events-last exam Patient was resting upon my arrival appearing comfortable at rest. He is still having significant pain with coughing and now bringing up a little bit of purulent sputum. He denies chills fever nausea vomiting or diarrhea. He is tolerating liquids but has not tried solids yet. Focused Exam Lactate Level 10/08/17 11:28: Lactic Acid Level 0.84 Objective Exam Vital Signs Vital Signs Date Time Temp Pulse Resp B/P (MAP) Pulse Ox O2 Delivery O2 Flow Rate FiO2 10/10/17 07:23 98 Nasal Cannula 2.00 10/10/17 06:00 89 24 138/79 (98) 10/09/17 19:53 99.0 Capillary Refill : Less Than 3 Seconds General Appearance: No Apparent Distress, Obese Respiratory: No Accessory Muscle Use, No Respiratory Distress, Other ( Decreased breath sounds in left mid and lower lung camacho no rub noted. Right side is clear) Cardiovascular: Regular Rate, Rhythm, No Edema, No Gallop, No JVD, No Murmur, Normal Peripheral Pulses Gastrointestinal: Normal Bowel Sounds, No Organomegaly, No Pulsatile Mass, Non Tender, Soft Results/Procedures Lab Laboratory Tests 10/10/17 03:07 Patient resulted labs reviewed. Assessment/Plan Assessment and Plan Assess & Plan/Chief Complaint 1. Postop day 1 status post right sided decortication and pleurodesis for right lower lobe pneumonia with empyema. We'll add scheduled hydrocodone with when necessary fentanyl and Toradol for pain. Patient's heart rate is trending lower with no significant fever. Pleural fluid cultures pending. Clinical Quality Measures AMI/AHF: ASA po Prior to arrival: No DVT/VTE Risk/Contraindication: Risk Factor Score Per Nursin RFS Level Per Nursing on Admit: 4+=Very High ALAN MCCRAY MD October 10, 2017 08:30
[2017-10-10] MEDS: KETOROLAC 30 MG/ML VIAL IVP PRN ×3 (08:33→23:12)
[2017-10-10] MEDS: NICOTINE PATCH REMOVAL TP SCH (08:34)
[2017-10-10] MEDS: NICOTINE 21 MG (NICODERM) PATCH TD SCH (08:34)
--- NOTE | 2017-10-10 09:10 | Diagnostic Imaging Report ---
EXAMINATION: Portable erect AP chest at 2:40 AM. INDICATION: Respiratory distress. FINDINGS: The left-sided chest tube seen on the prior exam of 10/09/2017 remains unchanged in position. There is still no sign of a pneumothorax on the left although there are areas of atelectasis/infiltrate in the left perihilar region and left retrocardiac region. These findings are similar to the prior exam. The subcutaneous emphysema along the periphery of the bony thorax on the left seen previously has diminished. Skin rachel are again evident overlying the left axilla. The right lung remains generally clear. The heart is enlarged but stable. The mediastinum is not widened. The osseous structures are intact. IMPRESSION: 1. When compared to the prior study, there has been no significant change. The left-sided chest tube remains in good position and there is still no sign of a pneumothorax. 2. A followup exam would be recommended for continued evaluation. Dictated by: Dictated on workstation # [id number]
--- NOTE | 2017-10-10 09:48 | Progress Note ---
Subjective Time Seen by Provider: 09:31 Subjective/Events-last exam Pt seen and examined. Pt main complaint is pain at chest tube site and with deep breath. He states he does feel better than yesterday and breathing is easier. Review of Systems General: No Chills Pulmonary: Cough, Pleuritic Chest Pain Cardiovascular: No: Chest Pain Focused Exam Lactate Level 10/08/17 11:28: Lactic Acid Level 0.84 Objective Exam Vital Signs Date Time Temp Pulse Resp B/P (MAP) Pulse Ox O2 Delivery O2 Flow Rate FiO2 10/10/17 07:23 98 Nasal Cannula 2.00 10/10/17 07:00 88 10/10/17 06:00 89 24 138/79 (98) 97 Nasal Cannula 2.00 10/10/17 05:00 91 18 144/75 (98) 97 Nasal Cannula 2.00 10/10/17 04:00 90 22 141/75 (97) 97 Nasal Cannula 2.00 10/10/17 04:00 96 Nasal Cannula 2.00 10/10/17 03:00 88 13 113/64 (80) 99 Nasal Cannula 2.00 10/10/17 02:00 86 22 119/63 (81) 98 Nasal Cannula 2.00 10/10/17 01:00 96 20 110/77 (88) 97 Nasal Cannula 2.00 10/10/17 01:00 92 10/10/17 00:00 90 20 121/65 (83) 97 Nasal Cannula 2.00 10/10/17 00:00 97 Nasal Cannula 2.00 10/09/17 23:00 98 11 117/73 (88) 98 Nasal Cannula 2.00 10/09/17 22:00 93 20 116/65 (82) 98 Nasal Cannula 2.00 10/09/17 21:00 92 22 120/69 (86) 97 Nasal Cannula 2.00 10/09/17 20:00 97 Nasal Cannula 2.00 10/09/17 20:00 93 19 123/70 (87) 98 Nasal Cannula 2.00 10/09/17 19:53 99.0 96 16 105/82 (90) 96 Nasal Cannula 2.00 10/09/17 19:00 96 13 129/81 (97) 97 Room Air 10/09/17 19:00 97 10/09/17 18:00 93 18 114/74 (87) 97 Room Air 10/09/17 17:21 95 10/09/17 17:15 98 16 122/80 (94) 96 Room Air 10/09/17 17:15 96.8 Room Air 10/09/17 11:59 99.2 103 22 144/69 (94) 95 Room Air I & O 10/10/17 07:00 Intake Total 3980 ml Output Total 1460 ml Balance 2520 ml Capillary Refill : Less Than 3 Seconds General Appearance: No Apparent Distress, Obese HEENT: PERRL/EOMI Neck: Full Range of Motion, Normal Inspection, Non Tender, Supple; No Carotid Bruit, No JVD, No Limited Range of Motion, No Lymphadenopathy (L), No Lymphadenopathy (R), No Thyromegaly Respiratory: No Accessory Muscle Use, No Respiratory Distress, Other ( Decreased breath sounds in left mid and lower lung camacho no rub noted. Right side is clear) Cardiovascular: Regular Rate, Rhythm, No Edema, No Murmur Gastrointestinal: non tender, soft Extremity: No Calf Tenderness, No Pedal Edema Neurologic/Psychiatric: Other (pt complains of some "tingling" in right hand, now only in fingertips) Skin: Damp Results Lab Laboratory Tests 10/09/17 14:25: Body Fluid Source PLEURAL, Body Fluid Color RED, Body Fluid Appearance SLT BLDY , Body Fluid pH 7.3, Body Fluid WBC 2745, Body Fluid RBC 53019, Body Fluid Polynuclear WBCs 68, Body Fluid Mononuclear WBCs 1, Body Fluid Lymphocytes 27, Body Fluid Other Cells 4, Body Fluid Glucose 8, Body Fluid Total Protein 4.5, Body Fluid Lactate Dehydrogenase 2036 10/10/17 03:07: White Blood Count 20.1H, Red Blood Count 4.01L, Hemoglobin 12.4L, Hematocrit 36L , Mean Corpuscular Volume 90, Mean Corpuscular Hemoglobin 31, Mean Corpuscular Hemoglobin Concent 34, Red Cell Distribution Width 13.6, Platelet Count 324, Mean Platelet Volume 10.2, Neutrophils (%) (Auto) 85H, Lymphocytes (%) (Auto) 7L , Monocytes (%) (Auto) 7, Eosinophils (%) (Auto) 0, Basophils (%) (Auto) 0, Neutrophils # (Auto) 17.1H, Lymphocytes # (Auto) 1.5, Monocytes # (Auto) 1.5H, Eosinophils # (Auto) 0.0, Basophils # (Auto) 0.0, Sodium Level 136, Potassium Level 3.7, Chloride Level 105, Carbon Dioxide Level 21, Anion Gap 10, Blood Urea Nitrogen 5L, Creatinine 0.74, Estimat Glomerular Filtration Rate > 60, BUN/ Creatinine Ratio 7, Glucose Level 108H, Calcium Level 8.2L, Phosphorus Level 2.9 , Magnesium Level 1.7L Microbiology 10/08/17 Blood Culture - Preliminary, Resulted No growth 10/09/17 Gram Stain - Final, Resulted 10/09/17 Anaerobic Culture, Resulted Pending 10/09/17 Surgical Culture - Preliminary, Resulted No growth 10/09/17 Fungal Culture, Resulted Pending 10/08/17 Influenza Types A,B Antigen (ELIJAH) - Final, Complete 10/09/17 Gram Stain - Final, Resulted 10/09/17 Anaerobic Culture, Resulted Pending 10/09/17 Surgical Culture - Preliminary, Resulted No growth 10/09/17 Fungal Culture, Resulted Pending Assessment/Plan Assessment/Plan Assessment/Plan S/P VATS decortication POD #1 Pneumonia left lung with Empyema Hx of Testicular cancer Will transfer to 4th floor, Toradol Q6, increase diet, encourage IS use. No air leak, drained appx 200cc of serosanguinous fluid overnight. Leave CT in place until less than 50ml/24 hours and no air leak. Clinical Quality Measures AMI/AHF: ASA po Prior to arrival: No DVT/VTE Risk/Contraindication: Risk Factor Score Per Nursin RFS Level Per Nursing on Admit: 4+=Very High LATASHA MONTES DO October 10, 2017 09:48
[2017-10-10] MEDS: RT-ALBUTEROL/IPRATROPIUM 3 ML (DUONEB) VIAL INH SCH ×4 (10:16→21:29)
[2017-10-10] MEDS: HYDROcodone/APAP 5 MG/325 MG (LORTAB) TAB PO SCH ×2 (12:49→17:35)
[2017-10-10] MEDS: ONDANSETRON 4 MG/2 ML (SDV) Z0FRAN IV PRN (20:21)
--- NOTE | 2017-10-10 22:01 | OPERATIVE REPORT ---
DATE OF SERVICE: 10/09/2017 PREOPERATIVE DIAGNOSES: 1. Left lung pneumonia. 2. Questionable empyema. POSTOPERATIVE DIAGNOSES: 1. Left lung pneumonia. 2. Empyema of left lung. PROCEDURES: 1. Video-assisted thorascopic surgery with decortication of 2 lobes. 2. Pleurodesis. SURGEON: Michael Mahan DO. BINGO CASHIER: Dr. Díaz. ANESTHESIA: General endotracheal tube. SPECIMEN: 1. Fluid for culture as well as sensitivity and cell counts 2. Decortication peel. BLOOD LOSS: Minimal. FLUIDS: Per anesthesia. INDICATION FOR PROCEDURE: The patient is a 32-year-old male, who had an entrapped lung secondary to what looked like an empyema. He was having difficulty breathing and I elected to do a decortication. I decided to do this video assisted. FINDINGS: The patient had a mild fibrinous purulent peel. There was some yellowish flor fluid as well as minimal pus. The lungs were entrapped involving two lobes, the left lower and upper lobe. PROCEDURE NOTE: After informed consent was obtained, the patient was brought to the operating room. He was placed on the table in the right lateral decubitus position. The table was then slightly broken to flex the patient. He was then sterilely prepped and draped in normal fashion. Local lidocaine was used to infiltrate the skin just below the scapula and then made an incision with #11 blade, carried down through skin into subcutaneous tissue, then deepened down to subcutaneous tissue with Bovie electrocautery down to the rib. I believe this is a probably rib seven or rib eight. I went just over the top of this rib carefully and bluntly spreading the muscle and then poked in with my finger, swept this around to try and push to make sure the lung was pushed away from the wall and then placed an 11 mm trocar port under direct visualization, suctioned out some fluid and then sent this to pathology for cell count, cultures, as well as cytology. Inserted a 5 mm camera and then able to put the suction stone carver next to this to visualize, took some pictures, as well as suctioned out the fluid, saw fibrinous material and started fibrinous peel and started doing decortication using blunt dissection as well as the suction stone carver. Then, once I had a little bit of space, placed another 5 mm port about 5 cm away, infiltrated the skin with local, made a stab incision and then watched this come in with the scope. I then continued this decortication. The peel and empyema covered the lower lobe and the upper lobe, able to start taking this down, able to pull some of the peel off with graspers as well as using Kittner pushers, able to separate the 1st and 2nd lobe and take the peel off in between the fissure, to be able to resolve this entrapped lung. I continued doing the decortication removing as much of the fibrinous material, this peel and fluid, and purulent fluid as well. Switching the camera to the 5 mm port and coming in from the other side. Once we felt we had gotten down as much, could see some good lung tissue and gotten as much of the peel off as a possible then elected to place a 32-Sami chest tube, made a small stab incision a little bit more distally, then the 2 upper incisions and then tunneled the chest tube through the small 5 mm incision and placed the chest tube through here, watched as it came through with the videoscope, placed this up into the upper portion of the lung, made sure we suctioned as much fluid as possible. Then, on 11 mm incision closed the fascia and then closed the 2 incisions with rachel, then sutured the chest tube in place with 2-0 silk suture and then placed a Vaseline gauze, then injected 50 mL of doxycycline to do a pleurodesis. I rotated the patient around, kept the doxycycline then there for 30 minutes. During this time that the doxycycline was in, the patient was then slowly transferred to the bed and then transferred to recovery room in stable condition. The sponge, instrument, and needle count correct at the end of the case and in recovery room a chest x-ray was ordered and the Pleur-evac was then hooked back up, hooked up to suction to suction out the doxycycline. The patient tolerated this procedure well. Dr. Díaz assisted in placing trocars, helping to close the incisions, as well as identifying anatomy and helping with the decortication. Job ID: [id number] DocumentID: [id number] Dictated Date: 10/10/2017 10:26:26 Vulcanizing Machine Operator Date: 10/10/2017 20:37:52 Dictated By: DO MILES MOORE
[2017-10-11 00:07] VITALS: BP 147/70
[2017-10-11] MEDS: HYDROcodone/APAP 5 MG/325 MG (LORTAB) TAB PO SCH ×4 (00:13→17:57)
[2017-10-11] MEDS: RT-ALBUTEROL/IPRATROPIUM 3 ML (DUONEB) VIAL INH SCH ×6 (01:46→21:42)
[2017-10-11] MEDS: PIPERACILLIN SODIUM/TAZOBACTAM 4.5 GM in NS (IVPB) 100 ML IV SCH ×2 (03:03→10:00)
[2017-10-11 04:08] VITALS: BP 138/80
[2017-10-11] MEDS: NS IV 1000 ML 1,000 ML IV SCH (05:09)
--- NOTE | 2017-10-11 05:50 | Pulmonary Progress Note ---
Subjective Time Seen by Provider: 05:49 Subjective/Events-last exam Pt appears to be doing better today. Focused Exam Lactate Level 10/08/17 11:28: Lactic Acid Level 0.84 Exam Exam Vital Signs Date Time Temp Pulse Resp B/P (MAP) Pulse Ox O2 Delivery O2 Flow Rate FiO2 10/11/17 01:46 91 Room Air 10/11/17 00:07 98.5 99 19 147/70 (95) 96 Nasal Cannula 1.00 10/10/17 21:30 96 Room Air 10/10/17 20:00 Room Air 10/10/17 20:00 99.5 104 20 150/71 (97) 95 Nasal Cannula 1.00 10/10/17 18:44 97 Room Air 10/10/17 16:00 99.4 109 20 158/71 (100) 97 Nasal Cannula 1.00 10/10/17 15:16 96 Nasal Cannula 10/10/17 14:00 Room Air 1.00 10/10/17 11:00 101 25 127/70 (89) 93 Room Air 10/10/17 10:22 Room Air 10/10/17 10:16 96 Nasal Cannula 1.00 10/10/17 10:00 90 22 155/85 (108) 96 Nasal Cannula 2.00 10/10/17 09:00 92 20 138/86 (103) 96 Nasal Cannula 2.00 10/10/17 08:23 96 Nasal Cannula 1.00 10/10/17 08:00 97.9 Nasal Cannula 1.00 10/10/17 08:00 92 25 137/73 (94) 93 Nasal Cannula 2.00 10/10/17 07:23 98 Nasal Cannula 2.00 10/10/17 07:00 85 22 117/82 (94) 96 Nasal Cannula 2.00 10/10/17 07:00 88 10/10/17 06:00 89 24 138/79 (98) 97 Nasal Cannula 2.00 I & O 10/11/17 07:00 Intake Total 2440 ml Output Total 175 ml Balance 2265 ml General Appearance: No Apparent Distress, Obese HEENT: PERRL/EOMI Neck: Full Range of Motion, Normal Inspection, Non Tender, Supple; No Carotid Bruit, No JVD, No Limited Range of Motion, No Lymphadenopathy (L), No Lymphadenopathy (R), No Thyromegaly Respiratory: No Accessory Muscle Use, No Respiratory Distress, Other ( Decreased breath sounds in left mid and lower lung camacho no rub noted. Right side is clear) Cardiovascular: Regular Rate, Rhythm, No Edema, No Murmur Capillary Refill: Less Than 3 Seconds Gastrointestinal: non tender, soft Extremity: No Calf Tenderness, No Pedal Edema Neurologic/Psychiatric: Other (pt complains of some "tingling" in right hand, now only in fingertips) Skin: Damp Results Lab Laboratory Tests 10/09/17 08:18 10/10/17 03:07 Assessment/Plan Assessment/Plan Pneumonia with empyema s/p decortication/pleurodesis -Continue Zosyn -Pain control - IS -SVNS -Chest tube management per surgery -pleural fluid sent for analysis and cytology -Check BNP - CXR will show signs of increased inflammation secondary to pleurodesis. Will use clinical evaluation in conjunction with CXR. Hypomagnesemia -replace Hx of testicular cancer s/p orchiectomy 233 WILIAN JOSHI DO October 11, 2017 05:50
[2017-10-11] MEDS: NICOTINE 21 MG (NICODERM) PATCH TD SCH (07:52)
[2017-10-11] MEDS: NICOTINE PATCH REMOVAL TP SCH (07:52)
[2017-10-11 08:00] VITALS: BP 143/69
--- NOTE | 2017-10-11 08:28 | Diagnostic Imaging Report ---
Indication: Pleural effusion Portable chest 3:08 AM Left thoracostomy tube remains in place. There continues to be some pleural thickening in left lateral chest wall. There is some infiltrate or atelectasis in the left lower lung. Right lung remains clear. Impression: Left pleural thickening with some left lower lobe consolidation unchanged from previous day. Dictated by: Dictated on workstation # [id number]
--- NOTE | 2017-10-11 08:30 | Progress Note-Hospitalist ---
Subjective HPI/CC On Admission Date Seen by Provider: October 11, 2017 Time Seen by Provider: 08:00 Mr. Petit is a 32-year-old white male who was in his usual state of reasonable health up until about a week ago when he noted the onset of fatigue with cough. He reported that his sputum was milky white without evidence for blood or other color. He continued to feel fatigued with some low-grade fever and some occasional night sweats. He developed the onset of pleuritic chest pain roughly 24 hours prior to his admission on the left side that progressively got worse causing him to present to the emergency room. Recent past medical history is significant for a one-year history of dental pain resulting in a dental abscess that appears to have involved his left upper 12th year molar it was severely decayed and he underwent dental extraction 2 weeks ago and had resolution of pain post procedure. He was diagnosed with some form of testicular cancer although it does appear to be a lower grade malignancy for which orchiectomy alone unilateral was performed with no evidence for recurrence thus far. Patient has denied any problems with testicular pain or scrotal swelling he also denies any problems with inguinal adenopathy. He has no known past history of pneumonia. Subjective/Events-last exam Pain somewhat improved today compared to yesterday. Patient denies night sweats chills or fever. There is been diminishing sputum production and no shortness of breath at rest. He did report reflux sounding symptoms last night without choking or coughing. He is getting his appetite back and tolerating solids without nausea. There is been 50 mL of pleural fluid output since a line was placed which the patient believes was around 2 o'clock p.m. yesterday when he came down from the floor of bloody effusion. There is no evidence for chest tube leak. Patient had a small hard stool yesterday with mild discomfort. Focused Exam Lactate Level 10/08/17 11:28: Lactic Acid Level 0.84 Objective Exam Vital Signs Vital Signs Date Time Temp Pulse Resp B/P (MAP) Pulse Ox O2 Delivery O2 Flow Rate FiO2 10/11/17 06:32 92 Room Air 10/11/17 04:08 99.1 96 18 138/80 (99) 1.00 Capillary Refill : Less Than 3 Seconds General Appearance: No Apparent Distress (1 patient is resting deep breaths and movement do cause discomfort.) Respiratory: No Accessory Muscle Use, No Respiratory Distress, Other (There is improvement in breath sounds in the left lung no wheezing rales or rhonchi are appreciated no rubs are noted with regular respiration.) Cardiovascular: Regular Rate, Rhythm, No Edema, No Gallop, No JVD, No Murmur Skin: Normal Color, Warm/Dry Results/Procedures Lab Patient resulted labs reviewed. Assessment/Plan Assessment and Plan Assess & Plan/Chief Complaint 1. Postop day 2 status post right sided decortication and pleurodesis for right lower lobe pneumonia with empyema. Pain improved on schedule hydrocodone and when necessary Toradol. Patient's heart rate is trending lower with no significant fever. Pleural fluid cultures negative thus far patient at risk for anaerobic-type bacteria or other oral mikaela considering recent dental abscess. There appears to be significant decrease in pleural fluid output over the last 18 hours 2. Mild gastroesophageal reflux symptoms when necessary Maalox ordered. 3. By mouth intake adequate we will DC IV fluids continuing Zosyn. 4. Constipation secondary to pain medication and pain MiraLAX initiated. Clinical Quality Measures AMI/AHF: ASA po Prior to arrival: No DVT/VTE Risk/Contraindication: Risk Factor Score Per Nursin RFS Level Per Nursing on Admit: 4+=Very High ALAN MCCRAY MD October 11, 2017 08:30
[2017-10-11 09:00] LABS: BASOPHILS % (AUTO) 0 % (0-10); EOSINOPHILS # (AUTO) 0.1 10^3/uL (0.0-0.3); EOSINOPHILS % (AUTO) 1 % (0-10); HEMATOCRIT 33 % (40-54); HEMOGLOBIN 11.4 G/DL (13.3-17.7); LYMPHOCYTES # (AUTO) 1.4 X 10^3 (1.0-4.0); LYMPHOCYTES % (AUTO) 13 % (12-44); MEAN CORPUSCULAR HEMOGLOBIN 31 PG (25-34); MEAN CORPUSCULAR HGB CONC 34 G/DL (32-36); MEAN CORPUSCULAR VOLUME 90 FL (80-99); MEAN PLATELET VOLUME 9.7 FL (7.4-10.4); MONOCYTES # (AUTO) 1.1 X 10^3 (0.0-1.0); MONOCYTES % (AUTO) 10 % (0-12); NEUTROPHILS # (AUTO) 8.3 X 10^3 (1.8-7.8); NEUTROPHILS % (AUTO) 76 % (42-75); PLATELET COUNT 382 10^3/uL (130-400); RED BLOOD COUNT 3.69 10^6/uL (4.35-5.85); RED CELL DISTRIBUTION WIDTH 13.8 % (10.0-14.5); WHITE BLOOD COUNT 10.9 10^3/uL (4.3-11.0)
[2017-10-11] MEDS ORDERED: POLYETHYLENE GLYCOL 17 GM (MIRALAX) PACK PO ONE (09:00)
[2017-10-11 09:17] LABS: BUN/CREATININE RATIO 4; CALCIUM 8.3 MG/DL (8.5-10.1); CARBON DIOXIDE 24 MMOL/L (21-32); CHLORIDE 108 MMOL/L (98-107); CREATININE SERUM 0.71 MG/DL (0.60-1.30); GFR ESTIMATED > 60; GLUCOSE 106 MG/DL (70-105); MAGNESIUM 1.9 MG/DL (1.8-2.4); POTASSIUM 3.2 MMOL/L (3.6-5.0); SODIUM 140 MMOL/L (135-145)
--- NOTE | 2017-10-11 10:24 | Progress Note ---
Subjective Time Seen by Provider: 10:04 Subjective/Events-last exam Pt seen and examined, states breathing is ok. Pain is rated as 5 out of 10. Tolerating diet, was given laxative this am to have BM but has not had one yet. Review of Systems General: No Chills, No Night Sweats Pulmonary: No Dyspnea; Cough, Pleuritic Chest Pain Gastrointestinal: No: Nausea, Vomiting Focused Exam Lactate Level 10/08/17 11:28: Lactic Acid Level 0.84 Objective Exam Vital Signs Date Time Temp Pulse Resp B/P (MAP) Pulse Ox O2 Delivery O2 Flow Rate FiO2 10/11/17 10:16 99 Room Air 10/11/17 08:00 Room Air 10/11/17 08:00 97.0 111 18 143/69 (93) 93 Nasal Cannula 1.00 10/11/17 06:32 92 Room Air 10/11/17 04:08 99.1 96 18 138/80 (99) 93 Nasal Cannula 1.00 10/11/17 01:46 91 Room Air 10/11/17 00:07 98.5 99 19 147/70 (95) 96 Nasal Cannula 1.00 10/10/17 21:30 96 Room Air 10/10/17 20:00 Room Air 10/10/17 20:00 99.5 104 20 150/71 (97) 95 Nasal Cannula 1.00 10/10/17 18:44 97 Room Air 10/10/17 16:00 99.4 109 20 158/71 (100) 97 Nasal Cannula 1.00 10/10/17 15:16 96 Nasal Cannula 10/10/17 14:00 Room Air 1.00 10/10/17 11:00 101 25 127/70 (89) 93 Room Air 10/10/17 10:22 Room Air I & O 10/11/17 07:00 Intake Total 3040 ml Output Total 425 ml Balance 2615 ml Capillary Refill : Less Than 3 Seconds General Appearance: No Apparent Distress (patient is resting deep breaths and movement do cause discomfort.) HEENT: PERRL/EOMI Respiratory: No Accessory Muscle Use, No Respiratory Distress, Other (There is improvement in breath sounds in the left lung no wheezing rales or rhonchi are appreciated no rubs are noted with regular respiration.) Cardiovascular: Regular Rate, Rhythm, No Edema, No Murmur Gastrointestinal: non tender, soft Extremity: No Calf Tenderness, No Pedal Edema Neurologic/Psychiatric: Other (pt states "tingling" in right hand is now gone) Skin: Normal Color, Warm/Dry Results Lab Laboratory Tests 10/11/17 08:47: White Blood Count 10.9, Red Blood Count 3.69L, Hemoglobin 11.4L, Hematocrit 33L , Mean Corpuscular Volume 90, Mean Corpuscular Hemoglobin 31, Mean Corpuscular Hemoglobin Concent 34, Red Cell Distribution Width 13.8, Platelet Count 382, Mean Platelet Volume 9.7, Neutrophils (%) (Auto) 76H, Lymphocytes (%) (Auto) 13 , Monocytes (%) (Auto) 10, Eosinophils (%) (Auto) 1, Basophils (%) (Auto) 0, Neutrophils # (Auto) 8.3H, Lymphocytes # (Auto) 1.4, Monocytes # (Auto) 1.1H, Eosinophils # (Auto) 0.1, Basophils # (Auto) 0.0, Sodium Level 140, Potassium Level 3.2L, Chloride Level 108H, Carbon Dioxide Level 24, Anion Gap 8, Blood Urea Nitrogen 3L, Creatinine 0.71, Estimat Glomerular Filtration Rate > 60, BUN/ Creatinine Ratio 4, Glucose Level 106H, Calcium Level 8.3L, Magnesium Level 1.9 Microbiology 5 Blood Culture - Preliminary, Resulted No growth 10/09/17 Gram Stain - Final, Resulted 10/09/17 Anaerobic Culture, Resulted Pending 10/09/17 Surgical Culture - Preliminary, Resulted No growth 10/09/17 Fungal Culture, Resulted Pending 10/08/17 MRSA Screen - Final, Complete MRSA not isolated 10/09/17 Gram Stain - Final, Resulted 10/09/17 Anaerobic Culture, Resulted Pending 10/09/17 Surgical Culture - Preliminary, Resulted No growth 10/09/17 Fungal Culture, Resulted Pending Assessment/Plan Assessment/Plan Assessment/Plan S/P VATS decortication POD #2 Pneumonia left lung with Empyema Hx of Testicular cancer No air leak seen in CT, will put to water seal and get CXR tonight; if no PTX will clamp tonight. Output appears to be less than 50ml overnight. Will heplock IV. Pt told to continue IS and ambulation. Clinical Quality Measures AMI/AHF: ASA po Prior to arrival: No DVT/VTE Risk/Contraindication: Risk Factor Score Per Nursin RFS Level Per Nursing on Admit: 4+=Very High LATASHA MONTES DO October 11, 2017 10:24
[2017-10-11 12:00] VITALS: BP 139/70
--- NOTE | 2017-10-11 12:06 | Diagnostic Imaging Report ---
Indication: Pleural effusion There is a left thoracostomy tube. There is some residual pleural thickening. There is no pneumothorax. There is some left perihilar and left basilar atelectasis. Right lung is clear. Impression: Thoracostomy tube has been placed to a waterseal. There is no accumulation of pneumothorax. Dictated by: Dictated on workstation # [id number]
[2017-10-11] MEDS: ANTACID SUSP 30 ML UDC (MYLANTA) PO PRN (12:15)
[2017-10-11 16:40] VITALS: BP 142/63
[2017-10-11] MEDS: PIPERACILLIN SODIUM/TAZOBACTAM 4.5 GM/D5W 100 ML IV SCH ×2 (17:58)
--- NOTE | 2017-10-11 18:29 | Diagnostic Imaging Report ---
EXAMINATION: PA and lateral chest. COMPARISON: Compared to prior study from earlier in the same day. INDICATION: Chest tube. FINDINGS: Positioning of the patient's left-sided chest tube is unchanged. There is thickening of the pleura and there appears to be a trace of residual left lateral and apical pneumothorax. Right lung clear. There is unchanged consolidation at the left lung base. IMPRESSION: 1. Thickened left pulmonary pleura with trace residual left lateral and apical pneumothorax. Left base consolidation is unchanged. Dictated by: Dictated on workstation # [id number]
[2017-10-11 20:30] VITALS: BP 151/74
[2017-10-11] MEDS: KETOROLAC 30 MG/ML VIAL IVP PRN (22:02)
[2017-10-12 00:10] VITALS: BP 147/79
[2017-10-12] MEDS: HYDROcodone/APAP 5 MG/325 MG (LORTAB) TAB PO SCH ×4 (00:45→18:07)
[2017-10-12] MEDS: RT-ALBUTEROL/IPRATROPIUM 3 ML (DUONEB) VIAL INH SCH ×6 (02:10→22:22)
[2017-10-12] MEDS: PIPERACILLIN SODIUM/TAZOBACTAM 4.5 GM/D5W 100 ML IV SCH ×6 (03:01→18:48)
[2017-10-12 04:51] VITALS: BP 137/74
[2017-10-12] MEDS ORDERED: KCL 10 MEQ TAB (MICRO K) PO ONE (05:15)
--- NOTE | 2017-10-12 05:19 | Pulmonary Progress Note ---
Subjective Time Seen by Provider: 05:16 Subjective/Events-last exam Pt doing well. He has no complaints. Exam Exam Vital Signs Date Time Temp Pulse Resp B/P (MAP) Pulse Ox O2 Delivery O2 Flow Rate FiO2 10/12/17 04:51 97.2 91 20 137/74 (95) 94 Room Air 10/12/17 02:11 97 Room Air 10/12/17 00:10 97.9 100 20 147/79 (101) 93 Room Air 10/11/17 21:44 95 Room Air 10/11/17 20:30 98.5 20 151/74 (99) 93 Room Air 10/11/17 20:00 Room Air 10/11/17 18:54 98 Room Air 10/11/17 16:40 98.3 94 20 142/63 (89) 97 Room Air 10/11/17 13:58 98 Room Air 10/11/17 12:00 98.9 95 16 139/70 (93) 96 Nasal Cannula 1.00 10/11/17 10:16 99 Room Air 10/11/17 08:00 Room Air 10/11/17 08:00 97.0 111 18 143/69 (93) 93 Nasal Cannula 1.00 10/11/17 06:32 92 Room Air I & O 10/12/17 06:59 Intake Total 2880 ml Output Total 1775 ml Balance 1105 ml General Appearance: No Apparent Distress (patient is resting deep breaths and movement do cause discomfort.) HEENT: PERRL/EOMI Respiratory: No Accessory Muscle Use, No Respiratory Distress, Other (There is improvement in breath sounds in the left lung no wheezing rales or rhonchi are appreciated no rubs are noted with regular respiration.) Cardiovascular: Regular Rate, Rhythm, No Edema, No Murmur Capillary Refill: Less Than 3 Seconds Gastrointestinal: non tender, soft Extremity: No Calf Tenderness, No Pedal Edema Neurologic/Psychiatric: Other (pt states "tingling" in right hand is now gone) Skin: Normal Color, Warm/Dry Results Lab Laboratory Tests 10/11/17 08:47 Assessment/Plan Assessment/Plan Pneumonia with empyema s/p decortication/pleurodesis - Zosyn -Pain control - IS -SVNS -Chest tube management per surgery -pleural fluid sent for analysis and cytology Hypomagnesemia -replace Hx of testicular cancer s/p orchiectomy 232 WILIAN JOSHI DO October 12, 2017 05:19
[2017-10-12 05:54] LABS: BASOPHILS % (AUTO) 0 % (0-10); EOSINOPHILS # (AUTO) 0.1 10^3/uL (0.0-0.3); EOSINOPHILS % (AUTO) 1 % (0-10); HEMATOCRIT 32 % (40-54); HEMOGLOBIN 10.7 G/DL (13.3-17.7); LYMPHOCYTES # (AUTO) 1.4 X 10^3 (1.0-4.0); LYMPHOCYTES % (AUTO) 16 % (12-44); MEAN CORPUSCULAR HEMOGLOBIN 30 PG (25-34); MEAN CORPUSCULAR HGB CONC 33 G/DL (32-36); MEAN CORPUSCULAR VOLUME 90 FL (80-99); MEAN PLATELET VOLUME 9.6 FL (7.4-10.4); MONOCYTES # (AUTO) 1.1 X 10^3 (0.0-1.0); MONOCYTES % (AUTO) 12 % (0-12); NEUTROPHILS # (AUTO) 6.4 X 10^3 (1.8-7.8); NEUTROPHILS % (AUTO) 71 % (42-75); PLATELET COUNT 393 10^3/uL (130-400); RED BLOOD COUNT 3.56 10^6/uL (4.35-5.85); RED CELL DISTRIBUTION WIDTH 13.5 % (10.0-14.5); WHITE BLOOD COUNT 9.1 10^3/uL (4.3-11.0)
[2017-10-12 06:21] LABS: BUN/CREATININE RATIO 3; CALCIUM 8.5 MG/DL (8.5-10.1); CARBON DIOXIDE 25 MMOL/L (21-32); CHLORIDE 105 MMOL/L (98-107); CREATININE SERUM 0.76 MG/DL (0.60-1.30); GFR ESTIMATED > 60; GLUCOSE 112 MG/DL (70-105); MAGNESIUM 1.8 MG/DL (1.8-2.4); POTASSIUM 2.9 MMOL/L (3.6-5.0); SODIUM 141 MMOL/L (135-145)
--- NOTE | 2017-10-12 07:42 | Diagnostic Imaging Report ---
INDICATION: Pleural effusion. Comparison made with prior examination 10/11/17. FINDINGS: There is cardiomegaly. There is left base infiltrate and left pleural effusion. Left thoracostomy tube remains in place. Right lung is clear. There is no pneumothorax. Mediastinum is unremarkable. IMPRESSION: Persistent left basilar consolidation and left pleural effusion. Cardiomegaly. Dictated by: Dictated on workstation # [id number]
[2017-10-12 08:00] VITALS: BP 149/77
[2017-10-12] MEDS: NICOTINE 21 MG (NICODERM) PATCH TD SCH (09:06)
[2017-10-12] MEDS: NICOTINE PATCH REMOVAL TP SCH (09:07)
--- NOTE | 2017-10-12 10:06 | Progress Note-Hospitalist ---
Subjective HPI/CC On Admission Date Seen by Provider: October 12, 2017 Time Seen by Provider: 09:35 Mr. Petit is a 32-year-old white male who was in his usual state of reasonable health up until about a week ago when he noted the onset of fatigue with cough. He reported that his sputum was milky white without evidence for blood or other color. He continued to feel fatigued with some low-grade fever and some occasional night sweats. He developed the onset of pleuritic chest pain roughly 24 hours prior to his admission on the left side that progressively got worse causing him to present to the emergency room. Recent past medical history is significant for a one-year history of dental pain resulting in a dental abscess that appears to have involved his left upper 12th year molar it was severely decayed and he underwent dental extraction 2 weeks ago and had resolution of pain post procedure. He was diagnosed with some form of testicular cancer although it does appear to be a lower grade malignancy for which orchiectomy alone unilateral was performed with no evidence for recurrence thus far. Patient has denied any problems with testicular pain or scrotal swelling he also denies any problems with inguinal adenopathy. He has no known past history of pneumonia. Subjective/Events-last exam Patient reports some small volume right sided epistaxis and pain around the chest tube site with cough or movement. He is relatively comfortable at rest otherwise. He denies night sweats chills or fever. He said no problems with cramping but was noted to have potassium of 2.9 this morning. I'm still trying to determine whether or not he's received 60 mg once potassium by mouth that was ordered around 515 this morning. He does not recall swallowing any large tablets other than as hydrocodone. He reported decent size bowel movement after MiraLAX that was not hard. Objective Exam Vital Signs Vital Signs Date Time Temp Pulse Resp B/P (MAP) Pulse Ox O2 Delivery O2 Flow Rate FiO2 10/12/17 08:00 Room Air 10/12/17 08:00 97.4 106 18 149/77 (101) 95 10/11/17 12:00 1.00 Capillary Refill : Less Than 3 Seconds General Appearance: No Apparent Distress, Obese Respiratory: No Accessory Muscle Use, No Respiratory Distress, Other ( Diminished breath sounds left base otherwise chest is clear without wheezes rales or rhonchi.) Cardiovascular: Regular Rate, Rhythm, No Edema, No Gallop, No JVD, No Murmur, Normal Peripheral Pulses Gastrointestinal: Normal Bowel Sounds, No Organomegaly, No Pulsatile Mass, Non Tender, Soft Results/Procedures Lab Laboratory Tests 10/12/17 05:10 10/12/17 05:40 Patient resulted labs reviewed. Assessment/Plan Assessment and Plan Assess & Plan/Chief Complaint 1. Postop day 3 status post right sided decortication and pleurodesis for right lower lobe pneumonia with empyema. Pain improved on schedule hydrocodone and when necessary Toradol. Patient's heart rate is trending lower with no significant fever. Pleural fluid cultures negative thus far patient at risk for anaerobic-type bacteria or other oral mikaela considering recent dental abscess. Patient chest tube off suction minimal drainage no fluid in the chest tube being last 24 hours. Chest x-ray stable no pneumothorax with left basilar infiltrate unchanged 2. Mild gastroesophageal reflux symptoms when necessary Maalox ordered. 3. By mouth intake adequate we will DC IV fluids continuing Zosyn. 4. Constipation secondary to pain medication and pain MiraLAX initiated with improvement. 5. Hypokalemia we'll replace. Continue daily blood tests monitoring. Clinical Quality Measures AMI/AHF: ASA po Prior to arrival: No DVT/VTE Risk/Contraindication: Risk Factor Score Per Nursin RFS Level Per Nursing on Admit: 4+=Very High ALAN MCCRAY MD October 12, 2017 10:06
[2017-10-12] MEDS ORDERED: KCL 20 MEQ TAB (K-DUR) PO NR (10:22)
--- NOTE | 2017-10-12 11:23 | Progress Note ---
Subjective Time Seen by Provider: 10:21 Subjective/Events-last exam Pt seen and examined, in moderate pain from CT site. Denies trouble breathing. Review of Systems General: No Chills, No Night Sweats Pulmonary: No Cough; Pleuritic Chest Pain Gastrointestinal: No: Nausea, Vomiting Objective Exam Vital Signs Date Time Temp Pulse Resp B/P (MAP) Pulse Ox O2 Delivery O2 Flow Rate FiO2 10/12/17 10:48 97.4 10/12/17 10:21 94 Room Air 10/12/17 08:00 Room Air 10/12/17 08:00 97.4 106 18 149/77 (101) 95 Room Air 10/12/17 07:30 97.2 10/12/17 07:20 92 Room Air 10/12/17 04:51 97.2 91 20 137/74 (95) 94 Room Air 10/12/17 02:11 97 Room Air 10/12/17 00:10 97.9 100 20 147/79 (101) 93 Room Air 10/11/17 21:44 95 Room Air 10/11/17 20:30 98.5 20 151/74 (99) 93 Room Air 10/11/17 20:00 Room Air 10/11/17 18:54 98 Room Air 10/11/17 16:40 98.3 94 20 142/63 (89) 97 Room Air 10/11/17 13:58 98 Room Air 10/11/17 12:00 98.9 95 16 139/70 (93) 96 Nasal Cannula 1.00 I & O 10/12/17 07:00 Intake Total 3480 ml Output Total 2850 ml Balance 630 ml Capillary Refill : Less Than 3 Seconds General Appearance: WD/WN, Mild Distress, Obese HEENT: PERRL/EOMI Respiratory: No Accessory Muscle Use, No Respiratory Distress, Other ( Diminished breath sounds left base otherwise chest is clear without wheezes rales or rhonchi.) Cardiovascular: Regular Rate, Rhythm, No Edema, No Murmur Gastrointestinal: non tender, soft Extremity: No Calf Tenderness, No Pedal Edema Neurologic/Psychiatric: Other (pt states "tingling" in right hand is now gone) Skin: Normal Color, Warm/Dry Results Lab Laboratory Tests 10/12/17 05:10: White Blood Count 9.1, Red Blood Count 3.56L, Hemoglobin 10.7L, Hematocrit 32L, Mean Corpuscular Volume 90, Mean Corpuscular Hemoglobin 30, Mean Corpuscular Hemoglobin Concent 33, Red Cell Distribution Width 13.5, Platelet Count 393, Mean Platelet Volume 9.6, Neutrophils (%) (Auto) 71, Lymphocytes (%) (Auto) 16, Monocytes (%) (Auto) 12, Eosinophils (%) (Auto) 1, Basophils (%) (Auto) 0, Neutrophils # (Auto) 6.4, Lymphocytes # (Auto) 1.4, Monocytes # (Auto) 1.1H, Eosinophils # (Auto) 0.1, Basophils # (Auto) 0.0 10/12/17 05:40: Sodium Level 141, Potassium Level 2.9L, Chloride Level 105, Carbon Dioxide Level 25, Anion Gap 11, Blood Urea Nitrogen 2L, Creatinine 0.76, Estimat Glomerular Filtration Rate > 60, BUN/Creatinine Ratio 3, Glucose Level 112H, Calcium Level 8.5, Magnesium Level 1.8 Microbiology 5 Blood Culture - Preliminary, Resulted No growth 10/09/17 Gram Stain - Final, Resulted 10/09/17 Anaerobic Culture - Preliminary, Resulted No growth 10/09/17 Surgical Culture - Preliminary, Resulted No growth 10/09/17 Fungal Culture, Resulted Pending 10/08/17 MRSA Screen - Final, Complete MRSA not isolated 10/09/17 Gram Stain - Final, Resulted 10/09/17 Anaerobic Culture - Preliminary, Resulted No growth 10/09/17 Surgical Culture - Preliminary, Resulted No growth 10/09/17 Fungal Culture, Resulted Pending Assessment/Plan Assessment/Plan Assessment/Plan S/P VATS decortication POD #3 Pneumonia left lung with Empyema Hx of Testicular cancer No air leak seen in pleuravac, no drainage overnight clamped CT and get will CXR in 4-6 hours. Pain control, pt told to continue IS and ambulation. Pleural fluid no growth of bacteria (most likely secondary to being started on ABX prior to surgery) and no malignant cells seen. Hopefully will be able to d/c home tomorrow. Clinical Quality Measures AMI/AHF: ASA po Prior to arrival: No DVT/VTE Risk/Contraindication: Risk Factor Score Per Nursin RFS Level Per Nursing on Admit: 4+=Very High LATASHA MONTES DO October 12, 2017 11:23
[2017-10-12 12:00] VITALS: BP 135/68
[2017-10-12] MEDS: KCL 20 MEQ TAB (K-DUR) PO SCH ×2 (13:16→18:08)
[2017-10-12] MEDS: ANTACID SUSP 30 ML UDC (MYLANTA) PO PRN (13:52)
[2017-10-12 15:10] VITALS: BP 152/81
[2017-10-12] MEDS: KETOROLAC 30 MG/ML VIAL IVP PRN (16:29)
--- NOTE | 2017-10-12 19:03 | Diagnostic Imaging Report ---
INDICATION: Chest pain. Portable chest at 04:55 p.m. FINDINGS: There is a left thoracostomy tube present. There appears to be loculated left pneumothorax. There is some atelectasis at the left lung base. Right lung is clear. IMPRESSION: Loculated left pneumothorax similar in appearance to earlier today. Dictated by: Dictated on workstation # [id number]
[2017-10-12 19:55] VITALS: BP 147/79
[2017-10-13] VITALS: BP 129/67
[2017-10-13] MEDS: HYDROcodone/APAP 5 MG/325 MG (LORTAB) TAB PO SCH ×3 (00:44→11:43)
[2017-10-13] MEDS: ONDANSETRON 4 MG/2 ML (SDV) Z0FRAN IV PRN (00:52)
[2017-10-13] MEDS: RT-ALBUTEROL/IPRATROPIUM 3 ML (DUONEB) VIAL INH SCH ×3 (02:30→10:24)
[2017-10-13] MEDS: PIPERACILLIN SODIUM/TAZOBACTAM 4.5 GM/D5W 100 ML IV SCH ×4 (03:15→10:39)
[2017-10-13 04:00] VITALS: BP 131/73
[2017-10-13 06:11] LABS: BASOPHILS % (AUTO) 0 % (0-10); EOSINOPHILS # (AUTO) 0.1 10^3/uL (0.0-0.3); EOSINOPHILS % (AUTO) 1 % (0-10); HEMATOCRIT 35 % (40-54); HEMOGLOBIN 11.5 G/DL (13.3-17.7); LYMPHOCYTES # (AUTO) 1.6 X 10^3 (1.0-4.0); LYMPHOCYTES % (AUTO) 14 % (12-44); MEAN CORPUSCULAR HEMOGLOBIN 30 PG (25-34); MEAN CORPUSCULAR HGB CONC 33 G/DL (32-36); MEAN CORPUSCULAR VOLUME 91 FL (80-99); MEAN PLATELET VOLUME 9.5 FL (7.4-10.4); MONOCYTES % (AUTO) 9 % (0-12); NEUTROPHILS # (AUTO) 8.3 X 10^3 (1.8-7.8); NEUTROPHILS % (AUTO) 75 % (42-75); PLATELET COUNT 451 10^3/uL (130-400); RED BLOOD COUNT 3.82 10^6/uL (4.35-5.85); WHITE BLOOD COUNT 11.1 10^3/uL (4.3-11.0)
[2017-10-13] MEDS: KCL 20 MEQ TAB (K-DUR) PO SCH (06:17)
[2017-10-13 06:26] LABS: BUN/CREATININE RATIO 3; CALCIUM 8.7 MG/DL (8.5-10.1); CARBON DIOXIDE 27 MMOL/L (21-32); CHLORIDE 104 MMOL/L (98-107); CREATININE SERUM 0.72 MG/DL (0.60-1.30); GFR ESTIMATED > 60; GLUCOSE 103 MG/DL (70-105); MAGNESIUM 1.9 MG/DL (1.8-2.4); POTASSIUM 3.9 MMOL/L (3.6-5.0); SODIUM 140 MMOL/L (135-145)
[2017-10-13 08:00] VITALS: BP 120/73
--- NOTE | 2017-10-13 09:41 | Progress Note-Hospitalist ---
Subjective HPI/CC On Admission Date Seen by Provider: October 13, 2017 Time Seen by Provider: 09:37 Mr. Petit is a 32-year-old white male who was in his usual state of reasonable health up until about a week ago when he noted the onset of fatigue with cough. He reported that his sputum was milky white without evidence for blood or other color. He continued to feel fatigued with some low-grade fever and some occasional night sweats. He developed the onset of pleuritic chest pain roughly 24 hours prior to his admission on the left side that progressively got worse causing him to present to the emergency room. Recent past medical history is significant for a one-year history of dental pain resulting in a dental abscess that appears to have involved his left upper 12th year molar it was severely decayed and he underwent dental extraction 2 weeks ago and had resolution of pain post procedure. He was diagnosed with some form of testicular cancer although it does appear to be a lower grade malignancy for which orchiectomy alone unilateral was performed with no evidence for recurrence thus far. Patient has denied any problems with testicular pain or scrotal swelling he also denies any problems with inguinal adenopathy. He has no known past history of pneumonia. Subjective/Events-last exam Patient had episode of coughing with shortness of breath and continued pain especially with coughing last night. He received a breathing treatment of the symptoms resolved. There was minimal associated sputum production at that time. He still coughing up sputum in the morning that is clearing. He's had no night sweats chills or fever his appetite has been good. Objective Exam Vital Signs Vital Signs Date Time Temp Pulse Resp B/P (MAP) Pulse Ox O2 Delivery O2 Flow Rate FiO2 10/13/17 08:00 97.3 93 16 120/73 (89) 91 Room Air 10/11/17 12:00 1.00 Capillary Refill : Less Than 3 Seconds General Appearance: Mild Distress Respiratory: No Accessory Muscle Use, No Respiratory Distress, Other (Right chest is clear and there are diminished breath sounds in the left lower lobe anteriorly left chest is clear) Cardiovascular: Regular Rate, Rhythm, No Edema, No Gallop, No JVD, No Murmur, Normal Peripheral Pulses Results/Procedures Lab Laboratory Tests 10/13/17 05:50 Patient resulted labs reviewed. Assessment/Plan Assessment and Plan Assess & Plan/Chief Complaint 1. Postop day 4 status post right sided decortication and pleurodesis for right lower lobe pneumonia with empyema. Pain improved on schedule hydrocodone and when necessary Toradol. Patient's heart rate is trending lower with no significant fever. Pleural fluid cultures negative thus far patient at risk for anaerobic-type bacteria or other oral mikaela considering recent dental abscess. Patient chest tube off suction minimal drainage.. Chest x-ray small loculated pneumothorax noted yesterday after chest tube clamping tube unclamped with minimal drainage and stable appearing pneumothorax per my viewing radiology report pending. Defer management to Dr. Carson 2. Mild gastroesophageal reflux symptoms when necessary Maalox ordered. 3. By mouth intake adequate we will DC IV fluids continuing Zosyn. 4. Constipation secondary to pain medication and pain MiraLAX initiated with improvement. 5. Hypokalemia resolved will DC oral replacement. Clinical Quality Measures AMI/AHF: ASA po Prior to arrival: No DVT/VTE Risk/Contraindication: Risk Factor Score Per Nursin RFS Level Per Nursing on Admit: 4+=Very High ALAN MCCRAY MD October 13, 2017 09:41
--- NOTE | 2017-10-13 10:11 | Diagnostic Imaging Report ---
INDICATION: Pleural effusion. Comparison is made with prior examination from 10/12/17. FINDINGS: A left thoracostomy tube remains in place. There is a left basilar infiltrate and small left pleural effusion. There is cardiomegaly and mild venous congestion. The mediastinum is unremarkable. There is no pneumothorax. IMPRESSION: Left basilar consolidation and left pleural effusion. Cardiomegaly and mild venous congestion. Dictated by: Dictated on workstation # [id number]
[2017-10-13] MEDS: KETOROLAC 30 MG/ML VIAL IVP PRN (10:28)
[2017-10-13] MEDS: NICOTINE 21 MG (NICODERM) PATCH TD SCH (10:28)
[2017-10-13] MEDS: NICOTINE PATCH REMOVAL TP SCH (10:36)
[2017-10-13] MEDS ORDERED: AMOX-358 PO ×2 (11:00)
[2017-10-13] MEDS ORDERED: ACHD5005 PO ×2 (11:00)
--- NOTE | 2017-10-13 11:02 | Discharge Inst-Surgical ---
Discharge Inst-Surgical Depart Medication/Instructions New, Converted or Re-Newed RX: RX Given to Pt/Family (Antibiotics transmitted to pharmacy, pain med Rx given to pt) Patient Instructions Follow up Appt: Make appointment for 1 week. [phone] Instructions: No strenuous activity. May shower in 48 hours, no tub bath or soaking. Use incentive spirometer at home as directed. No Smoking Skin/Wound Care: May remove bandages in 2-3 days. Symptoms to Report: Appetite Changes, Extremity Discoloration, Numbness/Tingling, Swelling Increased , Bleeding Excessive, Eyesight Changes, Pain Increased, Urine Color Change, Constipation(Persistent), Fever over 101 degree F, Pain/Pressure in chest, Urinating Difficulty, Cough Up/Vomit Blood, Heart Beat Irreg/Pounding, Pain/ Pressure in jaw, Cramps in feet or legs, Lightheadedness, Pain/Pressure in shoulder, Diarrhea(Persistent), Memory Changes Suddenly, Questions/Concerns, Weight gain consecutive days, Dizziness/Fainting, Nausea/Vomiting, Shortness of Breath, Weight gain over 2 pounds If questions or concerns contact your physician Or seek help at emergency department. Activity Activity as Tolerated: Yes Driving Instructions: No Driving/Refer to Dr. Thompson Discharge Diet: No Restrictions Diet After 24 Hours: Clear Liquid if Nauseous Return to The Hospital For: Shortness of breath If Any Problems/Questions/Issu: Contact Your Physician, Go to Emergency Room Skin/Wound Care Infection Signs and Symptoms: Increased Redness, Foul Odor of Wound, Increased Drainage, Skin Itchy or Has a Rash, Increased Swelling, Temperature Above 101 F Stitches/Tommie/Dermabond Dis: Care of LATASHA Zapien DO October 13, 2017 11:02
--- NOTE | 2017-10-13 11:06 | Progress Note ---
Subjective Time Seen by Provider: 10:57 Subjective/Events-last exam Pt seen, denies trouble breathing, pain is slightly better. Review of Systems General: No Chills, No Night Sweats Pulmonary: Cough, Pleuritic Chest Pain Objective Exam Vital Signs Date Time Temp Pulse Resp B/P (MAP) Pulse Ox O2 Delivery O2 Flow Rate FiO2 10/13/17 10:24 94 Room Air 10/13/17 08:00 97.3 93 16 120/73 (89) 91 Room Air 10/13/17 07:02 92 Room Air 10/13/17 04:00 97.3 91 15 131/73 (92) 94 Room Air 10/13/17 02:30 94 Room Air 10/13/17 00:00 97.6 92 18 129/67 (87) 95 Room Air 10/12/17 22:22 94 Room Air 10/12/17 20:00 Room Air 10/12/17 19:55 97.7 100 20 147/79 (101) 93 Room Air 10/12/17 18:44 94 Room Air 10/12/17 18:40 97.3 10/12/17 17:00 97.3 10/12/17 15:10 97.3 108 18 152/81 (104) 96 Room Air 10/12/17 14:56 95 Room Air 10/12/17 12:00 98.2 95 18 135/68 (90) 94 Room Air I & O 10/13/17 07:00 Intake Total 2600 ml Output Total 2825 ml Balance -225 ml Capillary Refill : Less Than 3 Seconds General Appearance: Mild Distress HEENT: PERRL/EOMI Respiratory: No Accessory Muscle Use, No Respiratory Distress, Other (Right chest is clear and there are diminished breath sounds in the left lower lobe anteriorly left chest is clear) Cardiovascular: Regular Rate, Rhythm, No Edema, No Murmur Gastrointestinal: non tender, soft Extremity: No Calf Tenderness, No Pedal Edema Neurologic/Psychiatric: Other (pt states "tingling" in right hand is now gone) Skin: Normal Color, Warm/Dry Results Lab Laboratory Tests 10/13/17 05:50: White Blood Count 11.1H, Red Blood Count 3.82L, Hemoglobin 11.5L, Hematocrit 35L , Mean Corpuscular Volume 91, Mean Corpuscular Hemoglobin 30, Mean Corpuscular Hemoglobin Concent 33, Red Cell Distribution Width 14.0, Platelet Count 451H, Mean Platelet Volume 9.5, Neutrophils (%) (Auto) 75, Lymphocytes (%) (Auto) 14, Monocytes (%) (Auto) 9, Eosinophils (%) (Auto) 1, Basophils (%) (Auto) 0, Neutrophils # (Auto) 8.3H, Lymphocytes # (Auto) 1.6, Monocytes # (Auto) 1.0, Eosinophils # (Auto) 0.1, Basophils # (Auto) 0.0, Sodium Level 140, Potassium Level 3.9, Chloride Level 104, Carbon Dioxide Level 27, Anion Gap 9, Blood Urea Nitrogen 2L, Creatinine 0.72, Estimat Glomerular Filtration Rate > 60, BUN/ Creatinine Ratio 3, Glucose Level 103, Calcium Level 8.7, Magnesium Level 1.9 Microbiology 10/08/17 Blood Culture - Preliminary, Resulted No growth 10/09/17 Gram Stain - Final, Resulted 10/09/17 Anaerobic Culture - Preliminary, Resulted No growth 10/09/17 Surgical Culture - Preliminary, Resulted No growth 10/09/17 Fungal Culture, Resulted Pending 10/08/17 MRSA Screen - Final, Complete MRSA not isolated 10/09/17 Gram Stain - Final, Resulted 10/09/17 Anaerobic Culture - Preliminary, Resulted No growth 10/09/17 Surgical Culture - Preliminary, Resulted No growth 10/09/17 Fungal Culture, Resulted Pending Assessment/Plan Assessment/Plan Assessment/Plan S/P VATS decortication POD #4 Pneumonia left lung with Empyema Hx of Testicular cancer D/c'd chest tube; placed occlusive dressing. Will d/c pt home. CXR this am did not really show change in minimal PTX. Maybe 10ml of drainage overnight. Clinical Quality Measures AMI/AHF: ASA po Prior to arrival: No DVT/VTE Risk/Contraindication: Risk Factor Score Per Nursin RFS Level Per Nursing on Admit: 4+=Very High LATASHA MONTES DO October 13, 2017 11:06
[2017-10-13 12:45] VITALS: BP 120/73
--- NOTE | 2017-10-17 10:32 | Physician Query Clarification ---
PQ-Conflicting Diagnosis Admission/Discharge Admission Date: October 08, 2017 at 12:25 Discharge Date: October 13, 2017 at 12:45 The medical record reflects the following clinical scenario: History/Risk Factors: Pneumonia/Empyema Clinical Findings: Temp: 99.1 Pulse: 111 Respir rate: 28 BP: 167/76 WBC: 27.7 Treatment: Zosyn IV Question: Do you agree with the impression of the Sepsis per ER physician Dr. López . Please document a response below. PHYSICIAN RESPONSE Do you agree w/Consulting Dx?: Yes Explanation of clincal finding tachycardia, elevated WBC, respiratory distress In responding to this query, please exercise your independent professional judgment. The purpose of this communication is to more accurately reflect the complexity of your patients condition. The fact that a question is asked does not imply that any particular answer is desired or expected. Thank you for your timely response to this clarification. Requestors name: Vera Mims THIS PHYSICIAN QUERY FORM IS A PERMANENT PART OF THE MEDICAL RECORD ALEXANDRE MIMS October 17, 2017 10:32 LATASHA MONTES DO October 19, 2017 08:30
--- NOTE | 2017-10-18 14:19 | Progress Note-Standard ---
Standard Progress Note Progress Notes/Assess & Plan Date Seen by Provider: October 09, 2017 Time Seen by Provider: 07:21 Progress/Assessment & Plan Addendum to Anesthesia Record ASA Class 2 TOM MARADIAGA DO October 18, 2017 14:19
--- NOTE | 2017-10-24 14:35 | Discharge Summary ---
Diagnosis/Chief Complaint Date of Admission October 08, 2017 at 12:25 Date of Discharge October 13, 2017 at 12:45 Discharge Date: October 13, 2017 Admission Diagnosis Admission Diagnosis Sepsis Pleural Effusion Pneumonia Shortness of breathing Discharge Diagnosis Sepsis Pneumonia with Empyema Hypomagnesemia Hx of Testicular cancer Reason Hospital Visit `Surgery is asked to consult regarding Empyema; possible need for Decortication HPI per ED: This 32-year-old gentleman presents to the emergency room with primary complaint of left-sided chest pain that radiates all the way down to his left lower back. He has a very tender to palpation of the chest wall and breathing is painful. He is tachycardic. He is also very dyspneic. He has had productive cough. He has had nausea and vomiting that has now turned to dry heaves. He is diaphoretic but denies fever. Patient has a history of right testicular cancer status post orchiectomy. He is otherwise relatively healthy. Dr. Montenegro is his oncologist. When I spoke to pt he was coughing, states it is not productive at this time. His pain is rated as an 5 out of 10, but will shoot up to 8 or 9. He thinks this has been going of for a week or so. He describes the pain as very sharp; worse when he coughs and with certain movements. Discharge Summary Procedures: VATS with Decortication and Pleurodesis Discharge Physical Examination Allergies: Coded Allergies: No Known Drug Allergies (Unverified , 03/28/10) General Appearance: Alert, Oriented X3 HEENT: PERRLA, EOMI Respiratory: Other (patient had decreased breath sounds on the left but improved compared to admission) Cardiovascular: Regular Rate, No Murmurs Abdominal: Normal Bowel Sounds, Soft Psych/Mental Status: Mental Status NL Hospital Course Patient is a 32-year-old male who presented with what appeared to be sepsis pneumonia and shortness of breath. A chest x-ray and CAT scan which showed fluid and possible loculations in the left lung. Unsure whether this was due to possibly his history of testicular cancer. Patient was admitted to the ICU in the next day taken to the operating room for a video-assisted thoracoscopic surgery. At that time a decortication was done and then subsequently pleurodesis. Chest tube placed patient sent to the ICU and then sent to the floor he slowly improved over the next few days. Chest tube placed to wall suction at first and then stepwise fashion gone to just to seal and finally to clamping the tube chest x-rays appeared to improve but then on the it looked like maybe the first K had come back and so the chest tube was unclamped. The next day the patient was improved chest x-ray was no different, therefore on the patient had his chest tube removed, with an occlusive dressing placed and he was sent home in stable condition. The patient had his diet slowly increased over the time he also to slight abdomen eyes that were replaced during his hospital stay. Discharge Instructions to patient/family Please see electronic discharge instructions given to patient. Discharge Medications Reviewed and agree with Discharge Medication list on patient's Discharge Instruction sheet Clinical Quality Measures AMI/AHF: ASA po Prior to arrival: No DVT/VTE Risk/Contraindication: Risk Factor Score Per Nursin RFS Level Per Nursing on Admit: 4+=Very High LATASHA MONTES DO October 24, 2017 14:35
== END 2017-10-13 12:45 | disposition home or self-care (01) | DRG 853 ==
LOC: EDUNIT# 09:32 → ER 09:36 → ICU 12:25 → UNDOADMIN 12:25 → 4TH 12:25 → ER 14:03 → 4TH 10-09 15:13 → ICU 10-09 17:15 → 4TH 10-10 13:32
PROVIDERS: ADMIT Internal Medicine; ATTEND Internal Medicine
PROC: 0BNJ4ZZ Release Left Lower Lung Lobe, Percutaneous Endoscopic Approach (ICD-10-PCS; 2017-10-09)
PROC: 0B9P30Z Drainage of Left Pleura with Drainage Device, Percutaneous Approach (ICD-10-PCS; 2017-10-09)
PROC: 3E0L329 Introduction of Other Anti-infective into Pleural Cavity, Percutaneous Approach (ICD-10-PCS; 2017-10-09)
PROC: 0BNG4ZZ Release Left Upper Lung Lobe, Percutaneous Endoscopic Approach (ICD-10-PCS; principal; 2017-10-09 13:28)
DX: A41.9 Sepsis, unspecified organism (principal); J18.9 Pneumonia, unspecified organism; J86.9 Pyothorax without fistula; R06.03 Acute respiratory distress; E83.42 Hypomagnesemia; E87.6 Hypokalemia; R11.2 Nausea with vomiting, unspecified; F17.210 Nicotine dependence, cigarettes, uncomplicated; F90.9 Attention-deficit hyperactivity disorder, unspecified type; F32.9 Major depressive disorder, single episode, unspecified; K21.9 Gastro-esophageal reflux disease without esophagitis; K59.03 Drug induced constipation; T40.2X5A Adverse effect of other opioids, initial encounter; Z85.47 Personal history of malignant neoplasm of testis
CPT/HCPCS: 36415; 71045; 71046; 71260; 74177; 80048; 80053; 82945; 83605; 83615; 83735; 83986; 84100; 84157; 84702; 85007; 85025; 85027; 86141; 87040; 87070; 87075; 87081; 87101; 87205; 87804; 88112; 88305; 89051; 93005; 94640; 94664; 94760; 96361; 96365; 96375; 96376

== ENCOUNTER 2017-10-19 08:57 | Outpatient (RCR) | payer OTHER ==
[2017-08-17 10:13] LABS: BASOPHILS # (AUTO) 0.1 10^3/uL (0.0-0.1); BASOPHILS % (AUTO) 1 % (0-10); EOSINOPHILS # (AUTO) 0.2 10^3/uL (0.0-0.3); EOSINOPHILS % (AUTO) 3 % (0-10); HEMATOCRIT 43 % (40-54); HEMOGLOBIN 14.8 G/DL (13.3-17.7); LYMPHOCYTES # (AUTO) 2.3 X 10^3 (1.0-4.0); LYMPHOCYTES % (AUTO) 29 % (12-44); MEAN CORPUSCULAR HEMOGLOBIN 31 PG (25-34); MEAN CORPUSCULAR HGB CONC 35 G/DL (32-36); MEAN CORPUSCULAR VOLUME 90 FL (80-99); MONOCYTES # (AUTO) 0.9 X 10^3 (0.0-1.0); MONOCYTES % (AUTO) 12 % (0-12); NEUTROPHILS # (AUTO) 4.3 X 10^3 (1.8-7.8); NEUTROPHILS % (AUTO) 55 % (42-75); PLATELET COUNT 327 10^3/uL (130-400); RED BLOOD COUNT 4.72 10^6/uL (4.35-5.85); RED CELL DISTRIBUTION WIDTH 14.3 % (10.0-14.5); WHITE BLOOD COUNT 7.7 10^3/uL (4.3-11.0)
[2017-08-17 10:28] LABS: ALANINE AMINOTRANSFERASE 26 U/L (0-55); ALBUMIN 3.9 GM/DL (3.2-4.5); ALKALINE PHOSPHATASE 77 U/L (40-136); BILIRUBIN,TOTAL 0.4 MG/DL (0.1-1.0); BUN/CREATININE RATIO 13; CALCIUM 8.6 MG/DL (8.5-10.1); CARBON DIOXIDE 21 MMOL/L (21-32); CHLORIDE 108 MMOL/L (98-107); CREATININE SERUM 0.85 MG/DL (0.60-1.30); GFR ESTIMATED > 60; GLUCOSE 104 MG/DL (70-105); POTASSIUM 4.2 MMOL/L (3.6-5.0); SODIUM 138 MMOL/L (135-145); TOTAL PROTEIN 6.4 GM/DL (6.4-8.2)
[2017-10-18 15:32] LABS: BASOPHILS # (AUTO) 0.1 10^3/uL (0.0-0.1); BASOPHILS % (AUTO) 1 % (0-10); EOSINOPHILS # (AUTO) 0.1 10^3/uL (0.0-0.3); EOSINOPHILS % (AUTO) 0 % (0-10); HEMATOCRIT 41 % (40-54); HEMOGLOBIN 13.6 G/DL (13.3-17.7); LYMPHOCYTES # (AUTO) 2.3 X 10^3 (1.0-4.0); LYMPHOCYTES % (AUTO) 17 % (12-44); MEAN CORPUSCULAR HEMOGLOBIN 30 PG (25-34); MEAN CORPUSCULAR HGB CONC 33 G/DL (32-36); MEAN CORPUSCULAR VOLUME 90 FL (80-99); MEAN PLATELET VOLUME 9.5 FL (7.4-10.4); MONOCYTES # (AUTO) 1.3 X 10^3 (0.0-1.0); MONOCYTES % (AUTO) 10 % (0-12); NEUTROPHILS # (AUTO) 9.3 X 10^3 (1.8-7.8); NEUTROPHILS % (AUTO) 72 % (42-75); PLATELET COUNT 714 10^3/uL (130-400); RED BLOOD COUNT 4.57 10^6/uL (4.35-5.85); RED CELL DISTRIBUTION WIDTH 13.4 % (10.0-14.5); WHITE BLOOD COUNT 13.1 10^3/uL (4.3-11.0)
[2017-10-18 15:54] LABS: ALANINE AMINOTRANSFERASE 52 U/L (0-55); ALBUMIN 3.7 GM/DL (3.2-4.5); ALKALINE PHOSPHATASE 102 U/L (40-136); BILIRUBIN,TOTAL 0.3 MG/DL (0.1-1.0); BUN/CREATININE RATIO 15; CALCIUM 9.5 MG/DL (8.5-10.1); CARBON DIOXIDE 23 MMOL/L (21-32); CHLORIDE 102 MMOL/L (98-107); CREATININE SERUM 0.88 MG/DL (0.60-1.30); GFR ESTIMATED > 60; GLUCOSE 113 MG/DL (70-105); POTASSIUM 4.8 MMOL/L (3.6-5.0); SODIUM 136 MMOL/L (135-145); TOTAL PROTEIN 7.7 GM/DL (6.4-8.2)
== END 2017-11-15 | disposition home or self-care (01) ==
LOC: ONC 08:57
PROVIDERS: ATTEND Internal Medicine Hematology & Oncology
DX: C62.11 Malignant neoplasm of descended right testis (principal); I10 Essential (primary) hypertension; F17.210 Nicotine dependence, cigarettes, uncomplicated; E66.9 Obesity, unspecified; Z68.36 Body mass index [BMI] 36.0-36.9, adult; Z79.899 Other long term (current) drug therapy
CPT/HCPCS: 36415; 80053; 82105; 83615; 84702; 85025; 99213; 99214

== ENCOUNTER → 2017-10-19 | Outpatient (CLI) | payer OTHER ==
[~2017-10-19] MED LIST changes: +ACHD5005 PO; +AMOX-358 PO
--- NOTE | 2017-10-19 11:54 | Diagnostic Imaging Report ---
INDICATION: Pneumonia, followup. TIME OF EXAM: 10:53 AM Correlation is made with prior study from 10/13/2017. FINDINGS: The heart size is stable. Postop changes of the left hemithorax are noted. The left chest tube has been removed. No residual pneumothorax is seen. There is some residual pleural fluid in the left base. There is some residual infiltrate or atelectasis in the left base, however overall aeration of the left lung has improved since the exam 6 days earlier. The right lung is clear. IMPRESSION: Left chest tube removal. There has been some improved aeration to the left lung. Mild left basilar infiltrate/atelectasis and small left effusion remains, however. Dictated by: Dictated on workstation # [id number]
== END ==
LOC: RAD 10:11
PROVIDERS: ATTEND Surgery
DX: J90 Pleural effusion, not elsewhere classified (principal); J18.9 Pneumonia, unspecified organism
CPT/HCPCS: 71046

== ENCOUNTER → 2017-12-21 | Outpatient (CLI) | payer SELFPAY ==
[~2017-12-21] MED LIST changes: +AMOX500C2 PO
--- NOTE | 2017-12-21 10:39 | Diagnostic Imaging Report ---
INDICATION: Decreased range of motion and pain in shoulder over the past month. History of a couple of falls. TECHNIQUE: 2 views of the left shoulder CORRELATION STUDY: None FINDINGS: The glenohumeral and acromioclavicular alignment are maintained and unremarkable. There is no evidence for acute fracture or dislocation. There is suggestion of some increased density over the joint space which underlying effusion is not excluded. IMPRESSION: 1. Negative for acute bony abnormality about the shoulder. Joint effusion suspect. Dictated by: Dictated on workstation # [id number]
== END ==
LOC: RAD 10:00
PROVIDERS: ATTEND Internal Medicine Hematology & Oncology
DX: C62.11 Malignant neoplasm of descended right testis (principal); M25.512 Pain in left shoulder
CPT/HCPCS: 73030

== ENCOUNTER 2018-01-14 01:38 | Emergency (ER) | payer SELFPAY ==
[~2018-01-14] VITALS: Ht 167.6 cm; Wt 101.6 kg
[~2018-01-14 01:38] MED LIST changes: -AMOX500C2 PO
[2018-01-14] MEDS ORDERED: NS IV 1000 ML 1,000 ML IV ONE (02:11)
[2018-01-14] MEDS ORDERED: CLINDAMYCIN 900 MG/50 ML IVPB 50 ML IV ONE (02:15)
[2018-01-14] MEDS ORDERED: fentaNYL INJECTION 100 MCG/2 ML AMP IVP ONE ×2 (02:15→03:00)
[2018-01-14 02:17] LABS: HEMOGLOBIN 14.8 G/DL (13.3-17.7); RED BLOOD COUNT 4.74 10^6/uL (4.35-5.85); RED CELL DISTRIBUTION WIDTH 15.6 % (10.0-14.5); WHITE BLOOD COUNT 11.1 10^3/uL (4.3-11.0)
[2018-01-14 02:38] LABS: ALANINE AMINOTRANSFERASE 16 U/L (0-55); ALBUMIN 4.4 GM/DL (3.2-4.5); ALKALINE PHOSPHATASE 84 U/L (40-136); BILIRUBIN,DIRECT 0.1 MG/DL (0.0-0.3); BILIRUBIN,INDIRECT 0.1 MG/DL; BILIRUBIN,TOTAL 0.2 MG/DL (0.1-1.0); BUN/CREATININE RATIO 16; CALCIUM 8.9 MG/DL (8.5-10.1); CARBON DIOXIDE 16 MMOL/L (21-32); CHLORIDE 108 MMOL/L (98-107); CREATININE SERUM 1.05 MG/DL (0.60-1.30); GFR ESTIMATED > 60; GLUCOSE 93 MG/DL (70-105); POTASSIUM 3.7 MMOL/L (3.6-5.0); SODIUM 139 MMOL/L (135-145)
[2018-01-14] MEDS ORDERED: FLUORESCEIN (FLUOR-I-STRIPS) 1 MG STRP OU ONE (03:45)
[2018-01-14] MEDS ORDERED: TETRACAINE 0.5% OPHTH SOLN 4 ML BTL (SINGLE DOSE ONLY) OU ONE (03:45)
[2018-01-14] MEDS ORDERED: BSS 15 ML IR ONE (03:45)
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
[2018-01-14 04:19] LABS: BILIRUBIN,URINE NEGATIVE (NEGATIVE); CLARITY,URINE CLEAR; COLOR,URINE YELLOW; GLUCOSE, URINE (UA) NEGATIVE (NEGATIVE); KETONES,URINE NEGATIVE (NEGATIVE); LEUKOCYTE ESTERASE ,URINE NEGATIVE (NEGATIVE); NITRITE,URINE NEGATIVE (NEGATIVE); PH,URINE 5 (5-9); PROTEIN,URINE NEGATIVE (NEGATIVE); UROBILINOGEN,URINE NORMAL (NORMAL)
[2018-01-14 04:27] LABS: BACTERIA,URINE NEGATIVE /HPF; SQUAMOUS EPITHELIAL CELL,UR 0-2 /HPF
[2018-01-14] MEDS ORDERED: KETOROLAC 30 MG/ML VIAL IVP ONE (04:30)
[2018-01-14] MEDS ORDERED: LIDOCAINE 1% INJ 20 ML 20 ML VIAL INJ ONE (04:30)
[2018-01-14 04:37] LABS: AMPHETAMINE SCREEN, URINE NEGATIVE (NEGATIVE); BARBITURATE SCREEN URINE NEGATIVE (NEGATIVE); BENZODIAZEPINES SCREEN URINE POSITIVE (NEGATIVE); CANNABINOID SCREEN, URINE POSITIVE (NEGATIVE); COCAINE SCREEN URINE NEGATIVE (NEGATIVE); METHADONE STAT NEGATIVE (NEGATIVE); METHAMPHETAMINE SCREEN URINE S NEGATIVE (NEGATIVE); OPIATE SCREEN URINE NEGATIVE (NEGATIVE); OXYCODONE STAT NEGATIVE (NEGATIVE); PROPOXYPHENE STAT NEGATIVE (NEGATIVE); TRICYCLIC ANTIDEPRESSANTS SCRE NEGATIVE (NEGATIVE)
[2018-01-14] MEDS ORDERED: AMOX500C2 PO (05:04)
[2018-01-14 05:15] VITALS: BP 138/77
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
== END 2018-01-14 05:17 | disposition left against medical advice (07) ==
LOC: EDUNIT# 01:38 → ER 01:40
DX: S02.82XA Fracture of other specified skull and facial bones, left side, initial encounter for closed fracture (principal); S02.2XXA Fracture of nasal bones, initial encounter for closed fracture; S01.512A Laceration without foreign body of oral cavity, initial encounter; S01.81XA Laceration without foreign body of other part of head, initial encounter; H40.052 Ocular hypertension, left eye; H11.32 Conjunctival hemorrhage, left eye; H05.20 Unspecified exophthalmos; H53.2 Diplopia; F90.9 Attention-deficit hyperactivity disorder, unspecified type; F41.9 Anxiety disorder, unspecified; F32.9 Major depressive disorder, single episode, unspecified; R40.2142 Coma scale, eyes open, spontaneous, at arrival to emergency department; R40.2252 Coma scale, best verbal response, oriented, at arrival to emergency department; R40.2362 Coma scale, best motor response, obeys commands, at arrival to emergency department; F10.129 Alcohol abuse with intoxication, unspecified; F12.10 Cannabis abuse, uncomplicated; F17.210 Nicotine dependence, cigarettes, uncomplicated; Z90.89 Acquired absence of other organs; Z85.47 Personal history of malignant neoplasm of testis; Z87.448 Personal history of other diseases of urinary system; Y04.8XXA Assault by other bodily force, initial encounter
CPT/HCPCS: 36415; 70450; 70486; 71045; 72125; 80048; 80076; 80306; 80320; 81000; 85027; 93041

== ENCOUNTER → 2018-02-11 | Outpatient (CLI) | payer OTHER ==
[~2018-02-11] MED LIST changes: +AMOX500C2 PO; +BARIUM SUSPENSION 2.1% (VANILLA SILQ) 450 ML PO ONE; +IOHEXOL 350 MG/ML 100 ML (OMNIPAQUE 350) VIAL IV ONE; +NS 250 ML (IVPB) BAG IV ONE
--- NOTE | 2018-02-11 11:28 | Diagnostic Imaging Report ---
PROCEDURE: CT chest with contrast, CT abdomen and pelvis with and without contrast. TECHNIQUE: Pre and post intravenous contrast axial imaging of the abdomen and pelvis and post contrast axial imaging of the chest were performed. INDICATION: Testicular carcinoma, followup. COMPARISON: Comparison is made with prior CT from 10/08/2017. CT CHEST: No axillary lymphadenopathy is identified. Normal-sized lymph nodes are identified in the mediastinum and maeve. No pathologically enlarged nodes are identified. No pericardial effusion is seen. Previously noted left-sided effusion which was partially loculated has nearly completely resolved. There may be minimal residual left-sided pleural fluid or pleural thickening. No parenchymal masses or nodules are seen. There is some minimal scarring or subsegmental atelectasis in the left lower lobe and to a lesser degree in the left upper lobe. IMPRESSION: No evidence of thoracic lymphadenopathy or pulmonary metastatic disease. Previously noted left-sided pleural effusion which was partially loculated has nearly completely resolved. CT ABDOMEN AND PELVIS: No discrete liver mass is identified. The gallbladder is surgically absent. No biliary ductal dilatation is seen. The pancreas and spleen are unremarkable. No adrenal mass is detected. The kidneys are unremarkable. The aorta is non-aneurysmal. No central retroperitoneal or mesenteric lymphadenopathy is seen. There has been development of an umbilical hernia. This does contain small bowel loops, but no evidence of small bowel obstruction is seen. The bowel loops are normal in caliber. The appendix is unremarkable. There is no ascites. No iliac or inguinal lymphadenopathy is detected. The unopacified urinary bladder is unremarkable. Bony structures are nonacute. IMPRESSION: 1. No evidence of abdominal or pelvic metastatic disease. 2. Fat and small bowel containing umbilical hernia, without evidence of obstruction. Dictated by: Dictated on workstation # [id number]
== END ==
LOC: RAD 10:38
PROVIDERS: ATTEND Internal Medicine Hematology & Oncology
DX: C62.11 Malignant neoplasm of descended right testis (principal); K42.9 Umbilical hernia without obstruction or gangrene
CPT/HCPCS: 71260; 74178

== ENCOUNTER 2018-02-15 08:07 | Outpatient (RCR) | payer OTHER ==
[2017-12-21 08:45] LABS: BASOPHILS % (AUTO) 0 % (0-10); EOSINOPHILS % (AUTO) 1 % (0-10); HEMATOCRIT 43 % (40-54); HEMOGLOBIN 15.1 G/DL (13.3-17.7); LYMPHOCYTES % (AUTO) 26 % (12-44); MEAN CORPUSCULAR HEMOGLOBIN 31 PG (25-34); MEAN CORPUSCULAR HGB CONC 35 G/DL (32-36); MEAN CORPUSCULAR VOLUME 89 FL (80-99); MEAN PLATELET VOLUME 10.2 FL (7.4-10.4); MONOCYTES % (AUTO) 7 % (0-12); NEUTROPHILS % (AUTO) 66 % (42-75); PLATELET COUNT 253 10^3/uL (130-400); RED BLOOD COUNT 4.84 10^6/uL (4.35-5.85); WHITE BLOOD COUNT 10.5 10^3/uL (4.3-11.0)
[2017-12-21 08:46] LABS: EOSINOPHILS # (AUTO) 0.1 10^3/uL (0.0-0.3); LYMPHOCYTES # (AUTO) 2.7 X 10^3 (1.0-4.0); MONOCYTES # (AUTO) 0.7 X 10^3 (0.0-1.0); NEUTROPHILS # (AUTO) 6.9 X 10^3 (1.8-7.8)
[2017-12-21 09:14] LABS: ALANINE AMINOTRANSFERASE 11 U/L (0-55); ALKALINE PHOSPHATASE 89 U/L (40-136); BILIRUBIN,TOTAL 0.2 MG/DL (0.1-1.0); BUN/CREATININE RATIO 15; CARBON DIOXIDE 24 MMOL/L (21-32); CHLORIDE 108 MMOL/L (98-107); CREATININE SERUM 0.96 MG/DL (0.60-1.30); GFR ESTIMATED > 60; GLUCOSE 104 MG/DL (70-105); POTASSIUM 3.9 MMOL/L (3.6-5.0); SODIUM 139 MMOL/L (135-145); TOTAL PROTEIN 6.4 GM/DL (6.4-8.2)
[2018-02-11 10:59] LABS: BASOPHILS % (AUTO) 0 % (0-10); EOSINOPHILS # (AUTO) 0.1 10^3/uL (0.0-0.3); EOSINOPHILS % (AUTO) 2 % (0-10); HEMATOCRIT 47 % (40-54); HEMOGLOBIN 16.2 G/DL (13.3-17.7); LYMPHOCYTES % (AUTO) 22 % (12-44); MEAN CORPUSCULAR HEMOGLOBIN 31 PG (25-34); MEAN CORPUSCULAR HGB CONC 35 G/DL (32-36); MEAN CORPUSCULAR VOLUME 91 FL (80-99); MEAN PLATELET VOLUME 10.1 FL (7.4-10.4); MONOCYTES % (AUTO) 11 % (0-12); NEUTROPHILS # (AUTO) 6.2 X 10^3 (1.8-7.8); NEUTROPHILS % (AUTO) 66 % (42-75); PLATELET COUNT 259 10^3/uL (130-400); RED BLOOD COUNT 5.16 10^6/uL (4.35-5.85); RED CELL DISTRIBUTION WIDTH 14.5 % (10.0-14.5); WHITE BLOOD COUNT 9.4 10^3/uL (4.3-11.0)
[2018-02-11 11:23] LABS: ALANINE AMINOTRANSFERASE 15 U/L (0-55); ALKALINE PHOSPHATASE 84 U/L (40-136); BILIRUBIN,TOTAL 0.2 MG/DL (0.1-1.0); BUN/CREATININE RATIO 14; CALCIUM 8.9 MG/DL (8.5-10.1); CARBON DIOXIDE 22 MMOL/L (21-32); CHLORIDE 110 MMOL/L (98-107); CREATININE SERUM 0.95 MG/DL (0.60-1.30); GFR ESTIMATED > 60; GLUCOSE 105 MG/DL (70-105); POTASSIUM 4.3 MMOL/L (3.6-5.0); SODIUM 138 MMOL/L (135-145); TOTAL PROTEIN 6.5 GM/DL (6.4-8.2)
[~2018-02-15 08:07] MED LIST changes: -BARIUM SUSPENSION 2.1% (VANILLA SILQ) 450 ML PO ONE; -IOHEXOL 350 MG/ML 100 ML (OMNIPAQUE 350) VIAL IV ONE; -NS 250 ML (IVPB) BAG IV ONE
== END 2018-03-21 | disposition home or self-care (01) ==
LOC: ONC 08:07
PROVIDERS: ATTEND Internal Medicine Hematology & Oncology
DX: C62.11 Malignant neoplasm of descended right testis (principal); I10 Essential (primary) hypertension; F17.210 Nicotine dependence, cigarettes, uncomplicated; E66.9 Obesity, unspecified; Z68.36 Body mass index [BMI] 36.0-36.9, adult; Z79.899 Other long term (current) drug therapy
CPT/HCPCS: 36415; 80053; 82105; 83615; 84702; 85025; 99213

== ENCOUNTER → 2018-05-31 | Outpatient (CLI) | payer OTHER ==
[~2018-05-31] MED LIST changes: +IOHEXOL 350 MG/ML 100 ML (OMNIPAQUE 350) VIAL IV ONE; +NS 100 ML (IVPB) BAG IV ONE; +RECEIVED CONTRAST (Hold Metformin) IV SCH
--- NOTE | 2018-05-31 09:20 | Diagnostic Imaging Report ---
CLINICAL INDICATION: Patient with malignant neoplasm of distended right testes. EXAM: Chest x-ray PA and lateral views. COMPARISONS: Chest x-ray dated 01/14/2018. FINDINGS: Lungs/pleura: Lungs are clear. There is no pneumothorax. There is no pleural effusion. Stable chronic blunting of the left costophrenic angle which may represent scarring. Mediastinum: Unremarkable. Pulmonary vasculature: Unremarkable. Heart: Unremarkable. Bones/extrathoracic soft tissue: There are mildly hypertrophic spurs involving the thoracic spine. IMPRESSION: There is no radiographic evidence of acute cardiopulmonary process. Dictated by: Dictated on workstation # [id number]
--- NOTE | 2018-05-31 12:36 | Diagnostic Imaging Report ---
PROCEDURE: CT abdomen and pelvis with and without contrast. TECHNIQUE: Precontrast acquisitions were acquired through the abdomen and pelvis. Multiple contiguous axial images were obtained through the abdomen and pelvis after the administration of intravenous contrast. INDICATION: Testicular malignancy for followup. COMPARISON: Study compared to 02/11/2018. FINDINGS: Nonobstructing supraumbilical ventral abdominal wall hernia comprised of small bowel loop in subtending mesentery revealed no evidence for incarceration, obstruction, or inflammation. No new abdominal wall defect. There were no findings of abdominopelvic soft tissue or osseous metastatic disease. No bowel, biliary, or urinary tract obstruction. The lung bases are nonacute. Gallbladder is absent. The liver, spleen, adrenals, and pancreas are unremarkable. The kidneys are unobstructed. There is no fluid collection or inflammatory process. The osseous structures are unremarkable. IMPRESSION: Unchanged exam. Nonobstructing ventral abdominal wall hernia with no evidence of metastatic disease or acute pathology. Dictated by: Dictated on workstation # [id number]
== END ==
LOC: RAD 09:02
PROVIDERS: ATTEND Internal Medicine Hematology & Oncology
DX: C62.11 Malignant neoplasm of descended right testis (principal); K43.9 Ventral hernia without obstruction or gangrene; Z90.49 Acquired absence of other specified parts of digestive tract
CPT/HCPCS: 71046; 74178

== ENCOUNTER 2018-06-07 09:00 | Outpatient (RCR) | payer OTHER ==
[2018-04-12 08:36] LABS: BASOPHILS % (AUTO) 1 % (0-10); EOSINOPHILS # (AUTO) 0.1 10^3/uL (0.0-0.3); EOSINOPHILS % (AUTO) 2 % (0-10); HEMATOCRIT 45 % (40-54); HEMOGLOBIN 15.5 G/DL (13.3-17.7); LYMPHOCYTES # (AUTO) 1.9 X 10^3 (1.0-4.0); LYMPHOCYTES % (AUTO) 30 % (12-44); MEAN CORPUSCULAR HEMOGLOBIN 32 PG (25-34); MEAN CORPUSCULAR HGB CONC 34 G/DL (32-36); MEAN CORPUSCULAR VOLUME 92 FL (80-99); MEAN PLATELET VOLUME 10.3 FL (7.4-10.4); MONOCYTES # (AUTO) 0.9 X 10^3 (0.0-1.0); MONOCYTES % (AUTO) 14 % (0-12); NEUTROPHILS # (AUTO) 3.4 X 10^3 (1.8-7.8); NEUTROPHILS % (AUTO) 54 % (42-75); PLATELET COUNT 218 10^3/uL (130-400); RED CELL DISTRIBUTION WIDTH 13.5 % (10.0-14.5); WHITE BLOOD COUNT 6.3 10^3/uL (4.3-11.0)
[2018-04-12 08:55] LABS: ALANINE AMINOTRANSFERASE 11 U/L (0-55); ALBUMIN 3.9 GM/DL (3.2-4.5); ALKALINE PHOSPHATASE 84 U/L (40-136); BILIRUBIN,TOTAL 0.2 MG/DL (0.1-1.0); BUN/CREATININE RATIO 14; CALCIUM 8.8 MG/DL (8.5-10.1); CARBON DIOXIDE 23 MMOL/L (21-32); CHLORIDE 109 MMOL/L (98-107); CREATININE SERUM 0.81 MG/DL (0.60-1.30); GFR ESTIMATED > 60; GLUCOSE 96 MG/DL (70-105); POTASSIUM 4.1 MMOL/L (3.6-5.0); SODIUM 139 MMOL/L (135-145); TOTAL PROTEIN 6.2 GM/DL (6.4-8.2)
[2018-05-30 14:25] LABS: BASOPHILS # (AUTO) 0.1 10^3/uL (0.0-0.1); BASOPHILS % (AUTO) 1 % (0-10); EOSINOPHILS # (AUTO) 0.1 10^3/uL (0.0-0.3); EOSINOPHILS % (AUTO) 1 % (0-10); HEMATOCRIT 46 % (40-54); HEMOGLOBIN 16.1 G/DL (13.3-17.7); LYMPHOCYTES # (AUTO) 2.8 X 10^3 (1.0-4.0); LYMPHOCYTES % (AUTO) 33 % (12-44); MEAN CORPUSCULAR HEMOGLOBIN 32 PG (25-34); MEAN CORPUSCULAR HGB CONC 35 G/DL (32-36); MEAN CORPUSCULAR VOLUME 93 FL (80-99); MEAN PLATELET VOLUME 10.3 FL (7.4-10.4); MONOCYTES # (AUTO) 0.9 X 10^3 (0.0-1.0); MONOCYTES % (AUTO) 11 % (0-12); NEUTROPHILS # (AUTO) 4.7 X 10^3 (1.8-7.8); NEUTROPHILS % (AUTO) 54 % (42-75); PLATELET COUNT 315 10^3/uL (130-400); RED CELL DISTRIBUTION WIDTH 13.9 % (10.0-14.5); WHITE BLOOD COUNT 8.6 10^3/uL (4.3-11.0)
[2018-05-30 14:43] LABS: ALANINE AMINOTRANSFERASE 13 U/L (0-55); ALBUMIN 4.3 GM/DL (3.2-4.5); ALKALINE PHOSPHATASE 79 U/L (40-136); BILIRUBIN,TOTAL 0.5 MG/DL (0.1-1.0); BUN/CREATININE RATIO 11; CALCIUM 9.2 MG/DL (8.5-10.1); CARBON DIOXIDE 22 MMOL/L (21-32); CHLORIDE 106 MMOL/L (98-107); CREATININE SERUM 0.98 MG/DL (0.60-1.30); GFR ESTIMATED > 60; GLUCOSE 96 MG/DL (70-105); POTASSIUM 4.4 MMOL/L (3.6-5.0); SODIUM 137 MMOL/L (135-145); TOTAL PROTEIN 7.1 GM/DL (6.4-8.2)
[~2018-06-07 09:00] MED LIST changes: -IOHEXOL 350 MG/ML 100 ML (OMNIPAQUE 350) VIAL IV ONE; -NS 100 ML (IVPB) BAG IV ONE; -RECEIVED CONTRAST (Hold Metformin) IV SCH
== END 2018-07-11 | disposition home or self-care (01) ==
LOC: ONC 09:00
PROVIDERS: ATTEND Internal Medicine Hematology & Oncology
DX: C62.11 Malignant neoplasm of descended right testis (principal); I10 Essential (primary) hypertension; K42.9 Umbilical hernia without obstruction or gangrene; F17.210 Nicotine dependence, cigarettes, uncomplicated; E66.9 Obesity, unspecified; Z68.39 Body mass index [BMI] 39.0-39.9, adult; Z79.899 Other long term (current) drug therapy
CPT/HCPCS: 36415; 80053; 82105; 83615; 84702; 85025; 99213

== ENCOUNTER 2019-01-10 14:40 | Observation (INO) | payer SELFPAY ==
[~2019-01-10] VITALS: Ht 167.6 cm; Wt 113.1 kg
[2019-01-10 15:28] LABS: BILIRUBIN,URINE NEGATIVE (NEGATIVE); CLARITY,URINE CLEAR; COLOR,URINE YELLOW; GLUCOSE, URINE (UA) NEGATIVE (NEGATIVE); KETONES,URINE NEGATIVE (NEGATIVE); LEUKOCYTE ESTERASE ,URINE 1+ (NEGATIVE); NITRITE,URINE NEGATIVE (NEGATIVE); PH,URINE 5 (5-9); PROTEIN,URINE 1+ (NEGATIVE); UROBILINOGEN,URINE 1 MG/DL (NORMAL)
[2019-01-10] MEDS ORDERED: fentaNYL INJECTION 100 MCG/2 ML AMP IVP STA (15:50)
[2019-01-10] MEDS ORDERED: NS IV 1000 ML 1,000 ML IV ONE (15:50)
[2019-01-10 15:56] LABS: BASOPHILS # (AUTO) 0.1 10^3/uL (0.0-0.1); BASOPHILS % (AUTO) 1 % (0-10); EOSINOPHILS # (AUTO) 0.1 10^3/uL (0.0-0.3); EOSINOPHILS % (AUTO) 1 % (0-10); HEMATOCRIT 45 % (40-54); HEMOGLOBIN 15.2 G/DL (13.3-17.7); LYMPHOCYTES # (AUTO) 1.6 X 10^3 (1.0-4.0); LYMPHOCYTES % (AUTO) 18 % (12-44); MEAN CORPUSCULAR HEMOGLOBIN 31 PG (25-34); MEAN CORPUSCULAR HGB CONC 34 G/DL (32-36); MEAN CORPUSCULAR VOLUME 92 FL (80-99); MEAN PLATELET VOLUME 9.7 FL (7.4-10.4); MONOCYTES # (AUTO) 1.1 X 10^3 (0.0-1.0); MONOCYTES % (AUTO) 12 % (0-12); NEUTROPHILS % (AUTO) 69 % (42-75); PLATELET COUNT 292 10^3/uL (130-400); RED CELL DISTRIBUTION WIDTH 13.8 % (10.0-14.5); WHITE BLOOD COUNT 8.8 10^3/uL (4.3-11.0)
--- NOTE | 2019-01-10 15:59 | ED GU-Male ---
General Chief Complaint: Abdominal/GI Problems Stated Complaint: ABD PAIN Nursing Triage Note: PATIENT STATES THAT HE HAS HAD LOW ABD PAIN X2 DAYS. PAIN RAD TO HIS BACK WHEN HE EMPTIES HIS BLADDER. BM HAVE BEEN REGULAR AND "BASICALLY NORMAL." HE IS NOT GETTING ENOUGH RELIEF FROM THE IBUPROFEN. Source: patient Exam Limitations: no limitations History of Present Illness Date Seen by Provider: Jan 10, 2019 Time Seen by Provider: 15:40 Initial Comments 33-year-old male patient presents to the emergency department with complaints of lower abdominal pain 2 days. Patient reports pain initially started periumbilical pain now radiates to the bilateral lower quadrants and into the bilateral low back. Pain is worse with emptying his bladder. Denies improvement with ibuprofen. Last dose of ibuprofen was 2 hours ago. Timing/Duration: getting worse, other (2 day onset) Severity/Quality: aching, sharp Location: periumbilical Radiation: RLQ, LLQ, other (into the bilateral low back) Activities at Onset: none Modifying Factors: Worsens With Breathing, Worsens With Movement, Worsens With Palpation Allergies and Home Medications Allergies Coded Allergies: No Known Drug Allergies (Unverified , 03/28/10) Home Medications Amoxicillin 500 Mg Capsule, 1,000 MG PO BID Prescribed by: DONTA HOWE on 01/14/18 0504 Amoxicillin/Potassium Clav 1 Each Tablet, 1 EACH PO BID Prescribed by: LATASHA MONTES on 10/13/17 1100 Hydrocodone Bit/Acetaminophen 1 Tab Tab, 2 TAB PO Q6HR PRN for CHEST PAIN Prescribed by: LATASHA MONTES on 10/13/17 1100 Patient Home Medication List Home Medication List Reviewed: Yes Review of Systems Review of Systems Constitutional: chills; No fever, No malaise EENTM: no symptoms reported Respiratory: no symptoms reported Cardiovascular: no symptoms reported Gastrointestinal: abdominal pain (BLQ); No constipation, No diarrhea; loss of appetite; No nausea, No vomiting Genitourinary: see HPI; denies burning, denies discharge, denies dysuria; frequency; denies hematuria; pain, urgency Musculoskeletal: see HPI, back pain Skin: no symptoms reported Psychiatric/Neurological: No Symptoms Reported All Other Systemes Reviewed Negative Unless Noted: Yes (Negative excepted noted.) Past Pvqycmt-Iiqaid-Ngkaag Hx Past Med/Social Hx: Reviewed Nursing Past Med/Soc Hx Patient Social History Alcohol Use: Occasionally Uses Number of Drinks Today: AA Alcohol Beverage of Choice: Beer Recreational Drug Use: Yes (ALCOHOL) Drug of Choice: MARIJUANA Smoking Status: Current Everyday Smoker Type Used: Cigars, Cigarettes 2nd Hand Smoke Exposure: No Recent Foreign Travel: No Contact w/Someone Who Travel: No Recent Infectious Disease Expo: No Recent Hopitalizations: No Physical Abuse: No Sexual Abuse: No Mistreated: No Fear: No Immunizations Up To Date Tetanus Booster (TDap): Less than 5yrs PED Vaccines UTD: Yes Seasonal Allergies Seasonal Allergies: No Past Medical History Surgeries: Yes (Bilat ear tubes, right orchiectomy) Adenoidectomy, Gallbladder, Tonsillectomy Respiratory: Yes Chronic Bronchitis Currently Using CPAP: No Currently Using BIPAP: No Cardiac: No Neurological: No Reproductive Disorders: Yes (testicular cancer) Genitourinary: No Gastrointestinal: Yes Gall Bladder Disease Musculoskeletal: No Endocrine: No HEENT: No Loss of Vision: Denies Hearing Impairment: Denies Cancer: Yes Testicular Did You Recieve Any Treatments: Yes What Type of Treatment Did You: Surgical Intervention Psychosocial: Yes ADD/ADHD, Anxiety, Depression Integumentary: No Blood Disorders: No Family Medical History Reviewed Nursing Family Hx Cancer, Diabetes Physical Exam Vital Signs Vital Signs - First Documented 01/10/19 14:50 Temp 96.8 Pulse 90 Resp 18 B/P (MAP) 132/78 (96) Pulse Ox 98 Capillary Refill : Less Than 3 Seconds Height, Weight, BMI Height: 5'6.00" Weight: 249lbs. 0oz. 112.899287yn; 36.2 BMI Method:Actual General Appearance: WD/WN, no apparent distress HEENT: PERRL/EOMI, pharynx normal Neck: supple, normal inspection Cardiovascular: normal peripheral pulses, regular rate, rhythm, no murmur Respiratory: lungs clear, normal breath sounds, no respiratory distress, no accessory muscle use Gastrointestinal: normal bowel sounds, soft, no organomegaly, no pulsatile mass; No distended; guarding (RLQ and suprapubic guarding); No rebound; tenderness (BLQ and suprapubic tenderness); No other (no flank tenderness) Back: normal inspection, no CVA tenderness Extremities: no pedal edema, no calf tenderness, normal capillary refill Neurologic/Psychiatric: alert, normal mood/affect, oriented x 3 Skin: normal color, warm/dry Procedures/Interventions Suture Size: 3-0 Progress/Results/Core Measures Suspected Sepsis Recent Fever Within 48 Hours: No Infection Criteria Present: Suspected New Infection New/Unexplained Altered Menta: No Sepsis Screen: No Definite Risk SIRS Temperature:96.8 Pulse: 90 Respiratory Rate: 18 Laboratory Tests 01/10/19 15:50: White Blood Count 8.8 Blood Pressure 132 /78 Mean: 96 Laboratory Tests 01/10/19 15:50: Creatinine 0.89, Platelet Count 292, Total Bilirubin 0.3 Results/Orders Lab Results Laboratory Tests Test 01/10/19 15:22 01/10/19 15:50 Range/Units Urine Color YELLOW Urine Clarity CLEAR Urine pH 5 5-9 Urine Specific [place] 1.025 H 1.016-1.022 Urine Protein 1+ H NEGATIVE Urine Glucose (UA) NEGATIVE NEGATIVE Urine Ketones NEGATIVE NEGATIVE Urine Nitrite NEGATIVE NEGATIVE Urine Bilirubin NEGATIVE NEGATIVE Urine Urobilinogen 1 NORMAL MG/DL Urine Leukocyte Esterase 1+ H NEGATIVE Urine RBC (Auto) NEGATIVE NEGATIVE Urine RBC NONE /HPF Urine WBC 2-5 /HPF Urine Squamous Epithelial Cells RARE /HPF Urine Crystals NONE /LPF Urine Bacteria MODERATE H /HPF Urine Casts NONE /LPF Urine Mucus LARGE H /LPF Urine Culture Indicated NO White Blood Count 8.8 4.3-11.0 10^3/uL Red Blood Count 4.86 4.35-5.85 10^6/uL Hemoglobin 15.2 13.3-17.7 G/DL Hematocrit 45 40-54 % Mean Corpuscular Volume 92 80-99 FL Mean Corpuscular Hemoglobin 31 25-34 PG Mean Corpuscular Hemoglobin Concent 34 32-36 G/DL Red Cell Distribution Width 13.8 10.0-14.5 % Platelet Count 292 130-400 10^3/uL Mean Platelet Volume 9.7 7.4-10.4 FL Neutrophils (%) (Auto) 69 42-75 % Lymphocytes (%) (Auto) 18 12-44 % Monocytes (%) (Auto) 12 0-12 % Eosinophils (%) (Auto) 1 0-10 % Basophils (%) (Auto) 1 0-10 % Neutrophils # (Auto) 6.0 1.8-7.8 X 10^3 Lymphocytes # (Auto) 1.6 1.0-4.0 X 10^3 Monocytes # (Auto) 1.1 H 0.0-1.0 X 10^3 Eosinophils # (Auto) 0.1 0.0-0.3 10^3/uL Basophils # (Auto) 0.1 0.0-0.1 10^3/uL Sodium Level 142 135-145 MMOL/L Potassium Level 4.3 3.6-5.0 MMOL/L Chloride Level 108 H 98-107 MMOL/L Carbon Dioxide Level 27 21-32 MMOL/L Anion Gap 7 5-14 MMOL/L Blood Urea Nitrogen 11 7-18 MG/DL Creatinine 0.89 0.60-1.30 MG/DL Estimat Glomerular Filtration Rate > 60 BUN/Creatinine Ratio 12 Glucose Level 99 70-105 MG/DL Calcium Level 9.4 8.5-10.1 MG/DL Corrected Calcium 9.5 8.5-10.1 MG/DL Total Bilirubin 0.3 0.1-1.0 MG/DL Aspartate Amino Transf (AST/SGOT) 10 5-34 U/L Alanine Aminotransferase (ALT/SGPT) 13 0-55 U/L Alkaline Phosphatase 99 40-136 U/L C-Reactive Protein High Sensitivity 2.89 H 0.00-0.50 MG/DL Total Protein 6.8 6.4-8.2 GM/DL Albumin 3.9 3.2-4.5 GM/DL My Orders Orders - LUIS MIGUEL HUDSON Ed Iv/Invasive Line Start (01/10/19 15:06) Cbc With Automated Diff (01/10/19 15:06) Comprehensive Metabolic Panel (01/10/19 15:06) Hs C Reactive Protein (01/10/19 15:06) Ua Culture If Indicated (01/10/19 15:06) Ns Iv 1000 Ml (Sodium Chloride 0.9%) (01/10/19 15:50) Fentanyl Injection (Sublimaze Injection (01/10/19 15:50) Ct Abd/Pelv W (Appendicitis) (01/10/19 16:06) Iohexol Injection (Omnipaque 350 Mg/Ml 1 (01/10/19 16:15) Received Contrast (Hold Metformin- Contr (01/10/19 16:15) Sodium Chloride Flush (Catheter Flush Sy (01/10/19 16:15) Ns (Ivpb) (Sodium Chloride 0.9% Ivpb Bag (01/10/19 16:15) Piperacillin/Tazobactam (Bulk) (Zosyn In (01/10/19 18:15) Medications Given in ED Current Medications Medications Dose Ordered Sig/Debbie Route Start Time Stop Time Status Last Admin Dose Admin Iohexol 100 ml ONCE ONCE IV 01/10/19 16:15 01/10/19 16:16 DC 01/10/19 16:34 100 ML Sodium Chloride 10 ml NEEDED PRN IV 01/10/19 16:15 01/10/19 16:34 10 ML Sodium Chloride 100 ml ONCE ONCE IV 01/10/19 16:15 01/10/19 16:16 DC 01/10/19 16:34 80 ML Sodium Chloride 1,000 ml @ 0 mls/hr Q0M ONCE IV 01/10/19 15:50 01/10/19 15:52 DC 01/10/19 16:09 0 MLS/HR Vital Signs/I&O 01/10/19 14:50 Temp 96.8 Pulse 90 Resp 18 B/P (MAP) 132/78 (96) Pulse Ox 98 01/11/19 00:00 Intake Total 1000 ml Balance 1000 ml Capillary Refill : Less Than 3 Seconds Blood Pressure Mean: 96 Diagnostic Imaging Diagonstic Imaging: CT Plain Films/CT/US/NM/MRI: abdomen, pelvis Comments Date of Exam:01/10/19 CT ABD/PELV W (APPENDICITIS) PROCEDURE: CT abdomen and pelvis with contrast, rule out appendicitis. TECHNIQUE: Multiple contiguous axial images were obtained through the abdomen and pelvis after the admin istration of intravenous contrast. INDICATION: Pelvic pain x3 days. History of testicular carcinoma with right-sided orchiectomy. CORRELATION STUDY: CT abdomen and pelvis 05/31/2018, 02/11/2018. FINDINGS: The lung bases are clear. Heart size is normal. The liver, spleen, pancreas, and adrenal glands appear unremarkable. Gallbladder is absent. Kidneys are with normal enhancement. No hydronephrosis or obstruction. Abdominal aorta is normal in contour with major branches patent. A mid abdominal wall hernia defect to the right of midline is again demonstrated, just under 4 cm in maximum dimension. There is increasing herniation of the peritoneal fat, vessels, and small bowel. There is no appreciable change in caliber or findings to suggest a significant obstruction or inflammation at this time. The colon is with mild severity fecal retention. A normal appendix is present. No abdominal ascites or free air. Stomach is rather distended with retained gastric contents. A 2.7 x 2.1 x 4.0 cm mass in the aortocaval region just above the level of the aortic bifurcation is adversely changed. There is surrounding inflammatory change. Low density centrally could be reflective of necrosis. Urinary bladder is decompressed. Prostate gland is unremarkable. Unchanged slight stranding in the right inguinal region is likely postoperative change. Osseous structures demonstrate no acute abnormality. IMPRESSION: 1. Negative for acute appendicitis. No evidence for obstructive uropathy. 2. Right paramidline abdominal wall hernia defect containing increasing severity and amount of herniated fat, vessels, and small bowel. However, no findings to suggest a high-degree bowel obstruction at this time. 3. Somewhat low-density, inflamed appearing mass in the aortocaval region. Features are worrisome for perhaps an abnormally enlarged necrotic lymph node given history of testicular carcinoma. Dictated by: Dictated on workstation # [id number] Reviewed: Reviewed by Me (radiology report reviewed by me) Departure Communication (Admissions) Time/Spoke to Admitting Phy: 17:42 Patient case discussed with Dr. Redd, he graciously accepts patient to his medical service for IV antibiotics, IV fluids, pain control, and surgical consul t. Patient seen and evaluated. Labs, urinalysis, and CT abdomen/pelvis obtained. Patient is given a now 50 g and 1 L normal saline. Patient did initially have a mild improvement in symptoms. However pain did return, but patient refused further pain medication. All laboratory findings, diagnostic findings, and plan for admission discussed with the patient. Patient verbalizes understanding and agrees with the treatment plan. Plan for admission discussed with Dr. Morrison, he agrees with the plan of care. Impression Primary Impression: Right lower quadrant abdominal pain Additional Impressions: Intraabdominal mass Personal history of testicular cancer Disposition: ADMITTED INPATIENT Condition: Stable Admissions Decision to Admit Reason: Admit from ER (General) Decision to Admit/Date: Jan 10, 2019 Time/Decision to Admit Time: 15:42 Departure-Patient Inst. Referrals: NO,LOCAL PHYSICIAN (PCP/Family) Primary Care Physician LUIS MIGUEL HUDSON Jan 10, 2019 15:59
[2019-01-10 16:09] LABS: BACTERIA,URINE MODERATE /HPF; SQUAMOUS EPITHELIAL CELL,UR RARE /HPF
[2019-01-10 16:15] LABS: ALANINE AMINOTRANSFERASE 13 U/L (0-55); ALBUMIN 3.9 GM/DL (3.2-4.5); ALKALINE PHOSPHATASE 99 U/L (40-136); BILIRUBIN,TOTAL 0.3 MG/DL (0.1-1.0); BUN/CREATININE RATIO 12; CALCIUM 9.4 MG/DL (8.5-10.1); CARBON DIOXIDE 27 MMOL/L (21-32); CHLORIDE 108 MMOL/L (98-107); CREATININE SERUM 0.89 MG/DL (0.60-1.30); GFR ESTIMATED > 60; GLUCOSE 99 MG/DL (70-105); POTASSIUM 4.3 MMOL/L (3.6-5.0); SODIUM 142 MMOL/L (135-145); TOTAL PROTEIN 6.8 GM/DL (6.4-8.2)
[2019-01-10] MEDS ORDERED: IOHEXOL 350 MG/ML 100 ML (OMNIPAQUE 350) VIAL IV ONE (16:15)
[2019-01-10] MEDS ORDERED: NS 100 ML (IVPB) BAG IV ONE (16:15)
[2019-01-10] MEDS ORDERED: HOLD METFORMIN - RECEIVED CONTRAST 20 ML VIAL IV SCH (16:15)
[2019-01-10] MEDS ORDERED: CATHETER FLUSH 10 ML SYR IV PRN (16:15)
--- OUTSIDE RECORDS SUMMARY | 2019-01-10 16:42 | XMS REPORT | Clinical Summary ---
Author Author [facility] Organization [facility] Address Unknown Phone Unavailable Care Team Providers Care Vermin Exterminator Name Role Phone No Pcp, Na PCP Unavailable Source Comments Some departments are not documenting in the electronic medical record. If you d o not see the information that you expected, contact Release of Information in [facility] [employer] Information Management department at [phone] for further assistan ce in locating additional records.[facility] Allergies No Known Allergies Medications End Date Status Medication Sig Dispensed Refills Start Date Active oxyCODONE/acetaminophen Take 1-2 30 tablet 0 (ENDOCET) 5/325 mg tablet tablets by 8 mouth every 4 hours as needed for Pain Active senna (SENNA) 8.6 mg Take 2 90 tablet 3 tablet tablets by 8 mouth at bedtime daily. Active Problems Problem Noted Date Testicular cancer 06/26/2017 Overview: Initially found a mass in [...] Relation Name Status Comments Other Social History Date Tobacco Use Types Packs/Day Years Used Current Every Day Smoker Cigarettes 2 20 Smokeless Tobacco: Former Chew Quit: 06/26/2016 User Tobacco Cessation: Ready to Quit: Yes Drinks/Week oz/Week Comments Alcohol Use 5 Cans of beer 3.0 Yes Sex Assigned at Date Recorded Not on file Industry Job Start Date Occupation Not on file Not on file Not on file Travel End Travel History Travel Start No recent travel history available. Last Filed Vital Signs Reading Time Taken Comments Vital Sign 137/71 07/10/2017 2:37 PM MANAGER ENGINE Blood Pressure 92 07/10/2017 2:37 PM MANAGER ENGINE Pulse 36.6 C (97.9 F) 07/02/2017 9:35 AM MANAGER ENGINE Temperature - - Respiratory Rate 98% 07/02/2017 10:15 AM MANAGER ENGINE Oxygen Saturation - - Inhaled Oxygen Concentration 98 kg (216 lb) 07/10/2017 2:37 PM MANAGER ENGINE Weight 167.6 cm (5' 6") 07/10/2017 2:37 PM MANAGER ENGINE Height 34.86 07/10/2017 2:37 PM MANAGER ENGINE Body Mass Index Plan of Treatment Health Maintenance Due Date Last Done Comments PHYSICAL (COMPREHENSIVE) 1991 EXAM HIV SCREENING 1999 DTAP/TDAP VACCINES (1 - 2002 Tdap) INFLUENZA VACCINE 03/04/2019 Results Not on filefrom Last 3 Months Advance Directives Patient Evp Operations Explanation Type Date Recorded Advance Directive/DPOA
--- NOTE | 2019-01-10 16:51 | Diagnostic Imaging Report ---
PROCEDURE: CT abdomen and pelvis with contrast, rule out appendicitis. TECHNIQUE: Multiple contiguous axial images were obtained through the abdomen and pelvis after the administration of intravenous contrast. INDICATION: Pelvic pain x3 days. History of testicular carcinoma with right-sided orchiectomy. CORRELATION STUDY: CT abdomen and pelvis 05/31/2018, 02/11/2018. FINDINGS: The lung bases are clear. Heart size is normal. The liver, spleen, pancreas, and adrenal glands appear unremarkable. Gallbladder is absent. Kidneys are with normal enhancement. No hydronephrosis or obstruction. Abdominal aorta is normal in contour with major branches patent. A mid abdominal wall hernia defect to the right of midline is again demonstrated, just under 4 cm in maximum dimension. There is increasing herniation of the peritoneal fat, vessels, and small bowel. There is no appreciable change in caliber or findings to suggest a significant obstruction or inflammation at this time. The colon is with mild severity fecal retention. A normal appendix is present. No abdominal ascites or free air. Stomach is rather distended with retained gastric contents. A 2.7 x 2.1 x 4.0 cm mass in the aortocaval region just above the level of the aortic bifurcation is adversely changed. There is surrounding inflammatory change. Low density centrally could be reflective of necrosis. Urinary bladder is decompressed. Prostate gland is unremarkable. Unchanged slight stranding in the right inguinal region is likely postoperative change. Osseous structures demonstrate no acute abnormality. IMPRESSION: 1. Negative for acute appendicitis. No evidence for obstructive uropathy. 2. Right paramidline abdominal wall hernia defect containing increasing severity and amount of herniated fat, vessels, and small bowel. However, no findings to suggest a high-degree bowel obstruction at this time. 3. Somewhat low-density, inflamed appearing mass in the aortocaval region. Features are worrisome for perhaps an abnormally enlarged necrotic lymph node given history of testicular carcinoma. Dictated by: Dictated on workstation # [id number]
[2019-01-10] MEDS ORDERED: NS (IVPB) 100 ML ONE (18:09)
[2019-01-10] MEDS ORDERED: WATER (STERILE) FOR INJECTION 20 ML ONE (18:10)
[2019-01-10] MEDS ORDERED: PIPERACILLIN/TAZO 4.5 GM VIAL (ZOSYN) IV ONE (18:10)
[2019-01-10] MEDS ORDERED: PIPERACILLIN/TAZOBACTAM (BULK) 4.5 GM in NS (IVPB) 100 ML IV ONE (18:15)
--- OUTSIDE RECORDS SUMMARY | 2019-01-10 18:32 | XMS REPORT | Clinical Summary ---
Author Author [facility] Organization [facility] Address Unknown Phone Unavailable Care Team Providers Care Family Day Care Provider Name Role Phone No Pcp, Na PCP Unavailable Source Comments Some departments are not documenting in the electronic medical record. If you d o not see the information that you expected, contact Release of Information in [facility] [employer] Information Management department at [phone] for further assistan ce in locating additional records.[facility] Allergies No Known Allergies Medications End Date [...] Comments Vital Sign 137/71 07/10/2017 2:37 PM GAMING FLOOR SUPERVISOR Blood Pressure 92 07/10/2017 2:37 PM GAMING FLOOR SUPERVISOR Pulse 36.6 C (97.9 F) 07/02/2017 9:35 AM GAMING FLOOR SUPERVISOR Temperature - - Respiratory Rate 98% 07/02/2017 10:15 AM GAMING FLOOR SUPERVISOR Oxygen Saturation - - Inhaled Oxygen Concentration 98 kg (216 lb) 07/10/2017 2:37 PM GAMING FLOOR SUPERVISOR Weight 167.6 cm (5' 6") 07/10/2017 2:37 PM GAMING FLOOR SUPERVISOR Height 34.86 07/10/2017 2:37 PM GAMING FLOOR SUPERVISOR Body Mass Index Plan of Treatment Health Maintenance Due Date Last Done Comments PHYSICAL (COMPREHENSIVE) 1991 EXAM HIV SCREENING 1999 DTAP/TDAP VACCINES (1 - 2002 Tdap) INFLUENZA VACCINE 03/04/2019 Results Not on filefrom Last 3 Months 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
--- NOTE | 2019-01-10 18:46 | NUR ---
arrived to unit. Iv antibiotic infusing. orientated to hospital environment. admission to be done by next shift
[2019-01-10 18:50] VITALS: BP 158/78
[2019-01-10] MEDS ORDERED: fentaNYL INJECTION 100 MCG/2 ML AMP IVP PRN (19:30)
[2019-01-10] MEDS ORDERED: ONDANSETRON 4 MG/2 ML (SDV) Z0FRAN IVP PRN (19:30)
[2019-01-10] MEDS ORDERED: FAMOTIDINE 20MG/2ML IV (PEPCID) IVP PRN (19:30)
--- NOTE | 2019-01-10 19:57 | NUR ---
"Shweta Ruiz admitted to room 415-1, with an admitting diagnosis of ABD Pain| Pelvic Mass, on 01/10/19 from ED via , accompanied by ED Staff.SHWETA RUIZ introduced to surroundings, call light, bed controls, phone, TV, temperature control, lights, meal times, smoking policy, visitor policy, side rail policy, bathrooms and showers. Patient Rights given to patient in the handbook.SHWETA RUIZ verbalizes understanding that [facility] is not responsible for the loss or damage to any personal effects or valuables that are kept in the patients posession during their hospitalization."
[2019-01-10 20:59] VITALS: BP 130/77
[2019-01-10] MEDS: NS IV 1000 ML 1,000 ML IV SCH (21:14)
[2019-01-10] MEDS: KETOROLAC 30 MG/ML VIAL IVP PRN (21:21)
[2019-01-11] VITALS: BP 135/73
[2019-01-11] MEDS: PIPERACILLIN/TAZO 4.5 GM/NS 100 ML IV SCH ×4 (01:17→08:16)
[2019-01-11] MEDS: NS IV 1000 ML 1,000 ML IV SCH ×3 (03:57→18:41)
[2019-01-11] MEDS: KETOROLAC 30 MG/ML VIAL IVP PRN (03:59)
[2019-01-11 04:00] VITALS: BP 132/88
[2019-01-11 05:47] LABS: BASOPHILS % (AUTO) 0 % (0-10); EOSINOPHILS # (AUTO) 0.1 10^3/uL (0.0-0.3); EOSINOPHILS % (AUTO) 2 % (0-10); HEMATOCRIT 41 % (40-54); HEMOGLOBIN 13.7 G/DL (13.3-17.7); LYMPHOCYTES # (AUTO) 1.8 X 10^3 (1.0-4.0); LYMPHOCYTES % (AUTO) 21 % (12-44); MEAN CORPUSCULAR HEMOGLOBIN 31 PG (25-34); MEAN CORPUSCULAR HGB CONC 33 G/DL (32-36); MEAN CORPUSCULAR VOLUME 93 FL (80-99); MEAN PLATELET VOLUME 10.2 FL (7.4-10.4); MONOCYTES # (AUTO) 0.8 X 10^3 (0.0-1.0); MONOCYTES % (AUTO) 10 % (0-12); NEUTROPHILS # (AUTO) 5.5 X 10^3 (1.8-7.8); NEUTROPHILS % (AUTO) 67 % (42-75); PLATELET COUNT 255 10^3/uL (130-400); RED CELL DISTRIBUTION WIDTH 13.6 % (10.0-14.5); WHITE BLOOD COUNT 8.3 10^3/uL (4.3-11.0)
[2019-01-11 06:18] LABS: ALANINE AMINOTRANSFERASE 14 U/L (0-55); ALBUMIN 3.3 GM/DL (3.2-4.5); ALKALINE PHOSPHATASE 77 U/L (40-136); BILIRUBIN,TOTAL 0.4 MG/DL (0.1-1.0); BUN/CREATININE RATIO 12; CALCIUM 8.6 MG/DL (8.5-10.1); CARBON DIOXIDE 20 MMOL/L (21-32); CHLORIDE 111 MMOL/L (98-107); CREATININE SERUM 0.91 MG/DL (0.60-1.30); GFR ESTIMATED > 60; GLUCOSE 101 MG/DL (70-105); POTASSIUM 4.3 MMOL/L (3.6-5.0); SODIUM 140 MMOL/L (135-145); TOTAL PROTEIN 5.7 GM/DL (6.4-8.2)
[2019-01-11 07:51] VITALS: BP 135/89
[2019-01-11] MEDS: PATCH REMOVAL TP SCH (08:16)
[2019-01-11] MEDS: NICOTINE 21 MG (NICODERM) PATCH TD SCH (08:16)
--- NOTE | 2019-01-11 11:11 | History & Physical-Hospitalist ---
History of Present Illness HPI/Chief Complaint Ketan Petit is a 33-year-old male with past medical history of testicular status post orchiectomy who presented to the emergency room with abdominal pain. He describes the pain as periumbilical with radiation to the bilateral lower quadrants. He reports the pain is 6 out of 10 and improved to 3 out of 10 with pain medication. He denies any nausea or vomiting. He denies any fevers or chills. He denies any diarrhea. He denies any melena or hematochezia. he denies any chest pain or dyspnea. He was diagnosed with testicular cancer in June 2017. He follows with Dr. Giordano. He underwent orchiectomy in July 2017 and he was given the option of either a few cycles of chemotherapy or close observation and he chose the latter. His last visit was in May 2018 and he has not made it in for a follow up appointment. Source: patient Exam Limitations: no limitations Date Seen 01/11/19 Time Seen by a Provider: 10:00 Attending Physician Daja Redd MD PCP No,Local Physician Referring Physician Date of Admission Jan 10, 2019 at 18:09 Home Medications & Allergies Home Medications Reviewed patient Home Medication Reconciliation performed by pharmacy medication reconciliations compounding pharmacy technician and/or nursing. Patients Allergies have been reviewed. Allergies Allergies Coded Allergies No Known Drug Allergies (Zbydsnsszn32/25/10) Past Eagcxsi-Lhbkft-Zcayru Hx Past Med/Social Hx: Reviewed Nursing Past Med/Soc Hx Patient Social History Employed/Student: unemployed Alcohol Use: Occasionally Uses Number of Drinks Today: AA Alcohol Beverage of Choice: Beer Recreational Drug Use: Yes (ALCOHOL) Drug of Choice: MARIJUANA Smoking Status: Current Everyday Smoker Type Used: Cigars, Cigarettes 2nd Hand Smoke Exposure: No Physical Abuse Screen: No Sexual Abuse: No Recent Foreign Travel: No Contact w/other who traveled: No Recent Hopitalizations: No Recent Infectious Disease Expo: No Immunizations Up To Date Tetanus Booster (TDap): Less than 5yrs Pediatric: Yes Seasonal Allergies Seasonal Allergies: No Past Medical History Surgeries: Adenoidectomy, Gallbladder, Tonsillectomy Currently Using CPAP: No Currently Using BIPAP: No Reproductive: Yes (testicular cancer) Gastrointestinal: Gall Bladder Disease Loss of Vision: Denies Hearing Impairment: Denies Cancer: Testicular Did You Recieve Any Treatments: Yes What Type of Treatment Did You: Surgical Intervention Psychosocial: ADD/ADHD, Anxiety, Depression History of Blood Disorders: No Family History Reviewed Nursing Family Hx Cancer, Diabetes Review of Systems Constitutional: No chills, No fever; other (night sweats) EENTM: no symptoms reported Respiratory: no symptoms reported Cardiovascular: no symptoms reported Gastrointestinal: abdominal pain; No constipation, No diarrhea, No melena, No nausea, No vomiting Genitourinary: no symptoms reported Musculoskeletal: no symptoms reported Skin: no symptoms reported Psychiatric/Neurological: No Symptoms Reported Physical Exam Physical Exam Vital Signs Vital Signs - First Documented 01/10/19 14:50 Temp 96.8 Pulse 90 Resp 18 B/P (MAP) 132/78 (96) Pulse Ox 98 Capillary Refill : Less Than 3 Seconds Height, Weight, BMI Height: 5'6.00" Weight: 249lbs. 4.0oz. 113.713806do; 40.2 BMI Method:Actual General Appearance: No Apparent Distress, WD/WN, Obese HEENT: PERRL/EOMI, Pharynx Normal Neck: Normal Inspection, Supple Respiratory: Lungs Clear, Normal Breath Sounds, No Respiratory Distress Cardiovascular: Regular Rate, Rhythm, No Edema, No Murmur Gastrointestinal: Normal Bowel Sounds, Soft; No Abnormal Bowel Sounds, No Distended, No Guarding; Hernia; No Mass, No Rebound; Tenderness Extremity: Normal Inspection, Non Tender, No Calf Tenderness Neurologic/Psychiatric: Alert, Oriented x3, No Motor/Sensory Deficits Skin: Normal Color, Warm/Dry Lymphatic: No Adenopathy Results Results/Procedures Labs Laboratory Tests 01/10/19 15:50 01/11/19 05:27 Patient resulted labs reviewed. Imaging: Reviewed Imaging Report Assessment/Plan Admission Diagnosis Abdominal pain Admission Status: Observation Reason for Inpatient Admission: Enlarged abdominal lymph node Assessment and Plan Abdominal pain Ventral hernia -Likely related to abdominal mass -CT Abdomen unrevealing for other sources -Ventral hernia present, appeared uncomplicated on imaging and exam -Well controlled on IV Toradol -Attempt to transition to oral pain medications today Intraabdominal mass History of testicular cancer -CT revealed enlarged lymph node in the aortocaval region -Likely recurrence of testicular cancer -Oncology consulted, appreciate assistance -Will check tumor markers -No plan for biopsy -Will follow up with Dr. Giordano and likely begin chemotherapy outpatient Diagnosis/Problems Diagnosis/Problems (1) Ventral hernia without obstruction or gangrene Status: Chronic (2) Intraabdominal mass Status: Acute (3) Personal history of testicular cancer Status: Chronic (4) Right lower quadrant abdominal pain Status: Acute Clinical Quality Measures DVT/VTE Risk/Contraindication: Risk Factor Score Per Nursin RFS Level Per Nursing on Admit: 1=Low/No VTE PPX Copy Copies To 1: LUIS ANTONIO GIORDANO MD, JARIN M MD Jan 11, 2019 11:11
[2019-01-11] MEDS ORDERED: ACETAMINOPHEN 325 MG TABLET PO PRN (11:15)
[2019-01-11 12:00] VITALS: BP 126/84
[2019-01-11] MEDS ORDERED: fentaNYL INJECTION 100 MCG/2 ML AMP IVP PRN (12:00)
--- NOTE | 2019-01-11 12:39 | CONSULTATION REPORT ---
DATE OF SERVICE: 01/11/2019 ADMITTING PHYSICIAN: Dr. Daja Redd. HISTORY OF PRESENT ILLNESS: The patient is a 33-year-old male who presented last night with lower abdominal pain in the midline. He reports that this was a new pain. This was sharp in characteristics and states that the pain was worse post-voiding. He does have an incisional hernia from a previous laparoscopic cholecystectomy. This has been around for several years and is easily reducible. He is not showing any signs of obstruction. He is tolerating regular diet and having normal bowel movements. CT scan was performed, which did show enlarged retroperitoneal paraaortic lymph node with necrosis. This is the most likely etiology of his pain. Upon further questioning, he does also report radiation of pain towards the back. This gentleman also does have a history of testicular cancer. It is unsure what type. However, he did undergo an inguinal orchiectomy on the right side and was given the option of chemotherapy which he did not do. 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 At this time, the necrotic lymph node is worrisome for recurrent testicular cancer. PAST MEDICAL HISTORY: Testicular cancer, ADHD, anxiety, depression. PAST SURGICAL HISTORY: Right inguinal orchiectomy, laparoscopic cholecystectomy, tonsillectomy. ALLERGIES: No known drug allergies. MEDICATIONS: None. SOCIAL HISTORY: Positive smoke 20 pack years. Social alcohol. VITAL SIGNS: Temperature 97.7, blood pressure 135/89, pulse 66, respirations 20, pulse ox 96% on room air. REVIEW OF SYSTEMS: Well-nourished male, currently in no acute distress. He is not experiencing any shortness of breath or difficulty breathing. No chest pain, palpitations, diaphoresis. No nausea, vomiting. He does report loose stools for the past few days. No red blood per rectum, no dark tarry stools. No fever, chills, no recent inadvertent weight loss. All other review of systems negative. PHYSICAL EXAMINATION: CHEST: Distant breath sounds and scattered wheezes bilaterally. HEART: Regular, no murmurs. EXTREMITIES: No lower extremity edema, negative Homans sign. HEENT: No scleral icterus. NECK: No cervical lymphadenopathy. ABDOMEN: Soft. There is an incisional hernia along the right lateral abdomen, which is easily reducible and nontender. He does have pain more in the lower abdominal quadrants, midline. There are no peritoneal signs. SKIN: Warm, dry. LABORATORY DATA: WBC 8.3, hemoglobin 13.7, hematocrit 41, platelets 255. BUN 11, creatinine 0.91. Urinalysis showed 1+ leukocyte esterase as well as moderate bacteria. ASSESSMENT AND PLAN: A 33-year-old male with an enlarged and necrotic periaortic lymph node. He also does have a reducible asymptomatic incisional hernia. Due to his history as well as the CT scan findings, this may be consistent with recurrence of the testicular cancer and he will need further evaluation including laboratory work, which was already ordered as well as a biopsy. If this is a verified nonseminomatous testicular cancer, he may need chemotherapy. For now, the incisional hernia is asymptomatic and he is not obstructed and we will continue with conservative management regarding the hernia. Job ID: [id number] DocumentID: [id number] Dictated Date: 01/11/2019 11:55:23 Rail Setter Date: 01/11/2019 12:39:14 Dictated By: JUAN M PANCHAL MD
--- NOTE | 2019-01-11 12:59 | CONSULTATION REPORT ---
DATE OF SERVICE: 01/11/2019 THE PATIENT IS ADMITTED TO ROOM: 415. REFERRING PHYSICIAN: Dr. Redd. IMPRESSION: 1. A 33-year-old male admitted to the hospital with abdominal pain. 2. 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 The patient opted for surveillance, but has been noncompliant with followups. 3. CT scan of the abdomen and pelvis showing retrocrural lymphadenopathy, raising the possibility of recurrent disease. 4. Abdominal wall hernia. RECOMMENDATIONS: 1. Obtain tumor markers of serum LDH, alpha fetoprotein and quantitative beta hCG. 2. Continue pain control as you are doing and monitor for constipation. 3. If the tumor markers are elevated, the patient will need chemotherapy with either BEP or EP regimen followed by resection of any residual mass. 4. If the patient is being discharged prior to the results of the tumor markers are available, please schedule a followup appointment with Dr. Montenegro within a few days. BRIEF HISTORY: The patient is a 33-year-old male who was admitted to the hospital with one week history of abdominal pain. He initially mentioned that this started with the urination and would involve his lower abdomen and spread to the entire abdomen as his symptoms continued to worsen. He came to the emergency room for evaluation and was admitted to the hospital. Today, he indicated that the pain is better, but still present. He has tendency for constipation, but he is having regular bowel movements. Denied any hematuria. No other bony aches or pains, no headaches or visual changes. No chest pain, palpitations, orthopnea or PND. PAST MEDICAL HISTORY: Significant for nonseminomatous germ cell tumor diagnosed in early 2017 and underwent right inguinal orchiectomy at [facility]. The patient declined adjuvant chemotherapy and was on active surveillance. His last visit at the Cancer Center was in May 2018. Other significant medical history includes hypertension for which he is on treatment. He also has history of anxiety and depression. PAST SURGICAL HISTORY: Include tonsillectomy and adenoidectomy in childhood, cholecystectomy within the last few years and a right inguinal orchiectomy in 07/2017. SOCIAL HISTORY: The patient is single and never . He has no children. 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 He smokes at least a pack of cigarettes daily. Also uses alcohol frequently, but denied binge drinking. He uses marijuana occasionally. Denied any other recreational drug use. FAMILY HISTORY: Significant for diabetes mellitus in his mom and a testicular cancer in his father. PHYSICAL EXAMINATION: GENERAL: Today showed a middle-aged male, well developed and nourished, awake and oriented, in no acute distress. VITAL SIGNS: His temperature was 97.7, pulse rate of 66, respirations 20, blood pressure 135/89 with oxygen saturation of 96% on room air. HEENT: Normocephalic with slight male pattern baldness, extraocular muscles intact, conjunctivae pink, oral mucosa moist. NECK: Supple, with no JVD. No cervical, supraclavicular or axillary lymphadenopathy palpable. CHEST: Symmetrical. LUNGS: Fairly clear to auscultation without wheezes or rales. CARDIOVASCULAR: Regular in rate and rhythm. No murmurs or gallops heard. ABDOMEN: Slightly obese, soft, tender in the lower quadrants without guarding or rebound. Anterior abdominal wall hernia was present, which is easily reducible. No hepatosplenomegaly or other masses palpable. EXTREMITIES: Showed no edema. NEUROLOGIC: Grossly intact without focal motor deficits. LABORATORY DATA: CBC done today showed WBC 8.3, hemoglobin 13.7, platelet count 255,000 with neutrophil count 5.5 and lymphocyte count 1.8. Chemistry panel showed relatively normal electrolytes. BUN was 11 and creatinine 0.91 with GFR more than 60 mL per minute. Liver function studies were within normal limits. C-reactive protein was elevated at 1.57. CT scan of the abdomen and pelvis done yesterday at the emergency room showed no evidence of acute appendicitis or obstructive uropathy. Low density aortocaval mass measuring 2.7 x 2.1 x 4.0 cm just above the level of the aortic bifurcation is new with surrounding inflammatory changes. It has low density centrally, which could be reflective of necrosis. There was a right paramidline abdominal wall hernia defect containing herniated fat, vessels and small bowel. There are no findings to suggest bowel obstruction at this time. Thank you for allowing me to participate in this patient's care. I will follow the patient with you. Job ID: [id number] DocumentID: [id number] Dictated Date: 01/11/2019 11:44:13 Project Safety Manager Date: 01/11/2019 12:58:26 Dictated By: BERNABE ESQUIVEL MD
[2019-01-11 15:50] VITALS: BP 145/79
[2019-01-11 19:50] VITALS: BP 149/86
[2019-01-11] MEDS ORDERED: POLYETHYLENE GLYCOL 17 GM (MIRALAX) PACK PO SCH (21:00)
[2019-01-11] MEDS: DOCUSATE SODIUM 100 MG (COLACE) CAP PO SCH (23:41)
[2019-01-12 00:22] VITALS: BP 137/84
[2019-01-12] MEDS: NS IV 1000 ML 1,000 ML IV SCH ×4 (01:28→14:37)
[2019-01-12 04:26] VITALS: BP 134/86
[2019-01-12] MEDS: NICOTINE 21 MG (NICODERM) PATCH TD SCH (07:50)
[2019-01-12] MEDS: PATCH REMOVAL TP SCH (07:50)
[2019-01-12 08:00] VITALS: BP 135/76
[2019-01-12] MEDS: DOCUSATE SODIUM 100 MG (COLACE) CAP PO SCH (08:34)
--- NOTE | 2019-01-12 10:04 | Progress Note ---
Subjective Date Seen by a Provider: Jan 12, 2019 Time Seen by a Provider: 09:30 Subjective/Events-last exam Patient seen with Dr. Barahona. Patient reports doing ok but still having abdominal pain with voiding. Tolerating diet. No fever/chills. Objective Exam Vital Signs Date Time Temp Pulse Resp B/P (MAP) Pulse Ox O2 Delivery O2 Flow Rate FiO2 01/12/19 08:00 Room Air 01/12/19 04:26 97.9 66 20 134/86 (102) 97 Room Air 01/12/19 00:22 98.3 70 20 137/84 (101) 96 Room Air 01/11/19 20:20 Room Air 01/11/19 19:50 98.2 66 20 149/86 (107) 100 Room Air 01/11/19 15:50 98.1 55 19 145/79 (101) 98 Room Air 01/11/19 12:00 98.1 65 20 126/84 (98) 98 Room Air I & O 01/12/19 07:00 Intake Total 4970 ml Output Total 1250 ml Balance 3720 ml Capillary Refill : Less Than 3 Seconds General Appearance: No Apparent Distress, WD/WN Neck: Normal Inspection, Supple Respiratory: Normal Breath Sounds, No Accessory Muscle Use, No Respiratory Distress Cardiovascular: Regular Rate, Rhythm, No Edema Gastrointestinal: normal bowel sounds, non tender, soft, hernia (incision, reducible, non-tender.) Neurologic/Psychiatric: Alert, Oriented x3 Skin: Normal Color, Warm/Dry Results Lab Laboratory Tests 01/12/19 05:54: Lactate Dehydrogenase 149, Human Chorionic Gonadotropin, Quant < 5 Assessment/Plan Assessment/Plan Assess & Plan/Chief Complaint A 33-year-old male with an enlarged and necrotic periaortic lymph node, asymptomatic reducible incisional hernia, as well as a history of n onseminomatous testicular cancer. Continue with conservative management for the hernia. VSS. Will continue with medical and oncology management. Clinical Quality Measures DVT/VTE Risk/Contraindication: Risk Factor Score Per Nursin RFS Level Per Nursing on Admit: 1=Low/No VTE PPX CARLOS VAZQUEZ APRN Jan 12, 2019 10:04
--- NOTE | 2019-01-12 11:59 | Progress Note ---
Standard Progress Note Progress Notes/Assess & Plan Date Seen by a Provider: Jan 12, 2019 Time Seen by a Provider: 11:54 Progress/Assessment & Plan Mr. 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 Patient admitted with lower abdominal pain and CT scan showing a 2.7 x 2.1 x 4 cm necrotic lymph node in the retrocrural area which was suspicious for recurrence. Tumor markers were obtained with LDH normal at 149 and quantitative beta-hCG less than 5. Alpha- fetoprotein level is pending but this was not elevated initially. Lower abdominal pain is improving and is currently rated at a 4-5 on a 10 point scale. Admission UA with questionable UTI. Continue management of this. With the tumor markers being normal, need to look at other etiologies for the enlarged retrocrural lymph nodes. May consider a CT scan of the chest for further evaluation. If patient is being discharged, scheduled follow-up with Dr. Montenegro in a few days. BERNABE ESQUIVEL Jan 12, 2019 11:59
--- NOTE | 2019-01-12 14:07 | Diagnostic Imaging Report ---
PROCEDURE: CT chest without contrast. TECHNIQUE: Multiple contiguous axial images were obtained through the chest without the use of intravenous contrast. Auto Exposure Controls were utilized during the CT exam to meet ALARA standards for radiation dose reduction. INDICATION: Enlarged retroperitoneal lymph node. Patient with history of testicular cancer. Evaluate for metastatic disease. COMPARISON: Chest CT performed on 02/11/[address] abdomen and pelvis performed on 01/10/2019. FINDINGS: Absence of intravenous contrast decreases sensitivity for detection of lymphadenopathy and vascular pathology. TRACHEA AND MAIN BRONCHI: Patent without evidence of tracheal or endobronchial lesion. LUNGS AND PLEURA: Mild dependent subsegmental atelectasis. No consolidation or pulmonary mass. No pleural effusion or pneumothorax. MEDIASTINUM AND GOLDEN: Visualized thyroid gland is normal. No mediastinal or hilar lymphadenopathy. Esophagus is nondistended. HEART AND VESSELS: Heart is normal in size. No pericardial effusion. Thoracic aorta is nonaneurysmal. DIAPHRAGM AND UPPER ABDOMEN: Patient is status post cholecystectomy. Ventral wall hernia containing several loops of small bowel is again demonstrated. No evidence of obstruction on limited evaluation of the abdomen. The diaphragm and visualized upper abdomen are otherwise unremarkable. CHEST WALL: Moderate bilateral gynecomastia. BONES: Multilevel degenerative changes involve the spine. No acute osseous abnormality. There is a new cortical defect involving the right lateral 10th rib near the costochondral junction. IMPRESSION: No acute chest disease. No evidence of metastatic disease. Fracture deformity of the right lateral 10th rib near the costochondral junction is new since 02/11/2018. There is suggestion of mild periosteal reaction and this may be a subacute fracture. Pathologic fracture is not excluded. Recommend correlation with physical exam. Ventral wall hernia containing multiple loops of small bowel is again demonstrated. No evidence of obstruction on today's exam, which does not include the entire abdomen. Dictated by: Dictated on workstation # [id number]
--- NOTE | 2019-01-12 14:36 | Discharge Inst-Simple/Standard ---
Discharge Inst-Standard Reconcile Patient Problems Problems Reviewed?: Yes Discharge Medications New, Converted or Re-Newed RX: Transmitted to Pharmacy Patient Instructions/Follow Up Plan of Care/Instructions/FU: Take medications as prescribed. Follow up with Dr. Montenegro in 2-3 days. Activity as Tolerated: Yes Discharge Diet: No Restrictions Return to The Hospital For: chest pain, dyspnea, or worsening abdominal pain. LARRY REMY MD Jan 12, 2019 14:36
[2019-01-12] MEDS ORDERED: ACHD5005 PO (14:42)
[2019-01-12] MEDS ORDERED: LEVO500T2 PO (14:42)
--- NOTE | 2019-01-12 14:50 | Discharge Summary ---
Diagnosis/Chief Complaint Date of Admission Jan 10, 2019 at 18:09 Date of Discharge Discharge Date: Jan 12, 2019 Discharge Time: 14:44 Admission Diagnosis Abdominal pain Discharge Diagnosis Intraabdominal mass (1) Intraabdominal mass Status: Acute (2) Right lower quadrant abdominal pain Status: Acute (3) Ventral hernia without obstruction or gangrene Status: Chronic (4) Personal history of testicular cancer Status: Chronic Discharge Summary Discharge Physical Exam Allergies: Coded Allergies: No Known Drug Allergies (Unverified , 03/28/10) Vitals & I&Os Vital Signs Date Time Temp Pulse Resp B/P (MAP) Pulse Ox O2 Delivery O2 Flow Rate FiO2 01/12/19 08:00 97.8 67 20 135/76 (95) 97 Room Air General Appearance: No Apparent Distress, WD/WN, Obese HEENT: PERRL/EOMI, Pharynx Normal Respiratory: Lungs Clear, Normal Breath Sounds, No Respiratory Distress Cardiovascular: Regular Rate, Rhythm, No Edema, No Murmur Gastrointestinal: Normal Bowel Sounds, Soft, Tenderness Extremity: Normal Inspection, Non Tender, No Pedal Edema Skin: Normal Color, Warm/Dry Neurologic/Psychiatric: Alert, Oriented x3, No Motor/Sensory Deficits Hospital Course Was the Problem List Reviewed?: Yes Ketan Petit is a 33yoM with H testicular cancer who presented with abdominal pain and was found to have an intraabdominal mass. Further workup revealed an enlarged, centrally necrotic lymph node in the aortocaval region. He underwent orchiectomy in June 2017 and elected to forego chemotherapy at that time and chose to undergo intermittent surveillance. His last follow up was in May 2018 and he was lost to follow up since that time. Oncology was consulted and obtained tumor markers and a CT Chest was performed. His pain was well controlled on oral medications and he was discharged with a few days of [place] for pain relief. He should follow up with Dr. Giordano in 2-3 days. He was also found to have a UTI and was prescribed a short course of Levaquin. Labs (last 24 hrs) Laboratory Tests 01/12/19 05:54: Lactate Dehydrogenase 149, Human Chorionic Gonadotropin, Quant < 5 Patient resulted labs reviewed. Imaging: Reviewed Imaging Report Discussion & Recommendations Discharge Planning: <30 minutes discharge planning Discharge Home Medications: Active Scripts Active Levaquin (Levofloxacin) 500 Mg Tablet 500 Mg PO DAILY 5 Days Hydrocodone/Acetaminophen 5/325mg Tablet (Acetaminophen/Hydrocodone Bitart) 1 Tab Tab 1 Tab PO Q6HR PRN Amoxicillin 500 Mg Capsule 1,000 Mg PO BID Augmentin 875-125 Tablet (Amoxicillin/Potassium Clav) 1 Each Tablet 1 Each PO BID Condition at discharge Stable Instructions to patient/family Please see electronic discharge instructions given to patient. Clinical Quality Measures DVT/VTE Risk/Contraindication: Risk Factor Score Per Nursin RFS Level Per Nursing on Admit: 1=Low/No VTE PPX Copy Copies To 1: LUIS ANTONIO GIORDANO MD, JARIN M MD Jan 12, 2019 14:49
[2019-01-12 15:41] VITALS: BP 135/76
== END 2019-01-12 14:42 | disposition home or self-care (01) ==
LOC: EDUNIT# 14:40 → ER 14:41 → UNDOADMOB 18:09 → 4TH 18:09 → UNDODISOB 01-12 15:41
PROVIDERS: ADMIT Internal Medicine; ATTEND Internal Medicine
DX: R19.00 Intra-abdominal and pelvic swelling, mass and lump, unspecified site (principal); K43.9 Ventral hernia without obstruction or gangrene; F90.9 Attention-deficit hyperactivity disorder, unspecified type; F32.9 Major depressive disorder, single episode, unspecified; F41.9 Anxiety disorder, unspecified; Z85.47 Personal history of malignant neoplasm of testis; Z90.79 Acquired absence of other genital organ(s); Z79.2 Long term (current) use of antibiotics; Z87.891 Personal history of nicotine dependence; Z90.49 Acquired absence of other specified parts of digestive tract; Z83.3 Family history of diabetes mellitus
CPT/HCPCS: 36415; 71250; 74177; 80053; 81000; 82105; 83615; 84702; 85025; 86141; G0378

== ENCOUNTER 2019-01-15 08:08 | Outpatient (RCR) | payer OTHER ==
[~2019-01-15 08:08] MED LIST changes: +LEVO500T2 PO
== END 2019-04-15 | disposition home or self-care (01) ==
LOC: ONC 08:08
PROVIDERS: ATTEND Internal Medicine Hematology & Oncology
DX: C62.11 Malignant neoplasm of descended right testis (principal); I10 Essential (primary) hypertension; K42.9 Umbilical hernia without obstruction or gangrene; F17.210 Nicotine dependence, cigarettes, uncomplicated; E66.9 Obesity, unspecified; Z68.39 Body mass index [BMI] 39.0-39.9, adult; Z79.899 Other long term (current) drug therapy
CPT/HCPCS: 99213

== ENCOUNTER → 2019-01-28 | Outpatient (CLI) | payer OTHER ==
--- NOTE | 2019-01-30 15:27 | Diagnostic Imaging Report ---
EXAM: PET/CT INDICATION: Malignant neoplasm of descended testicle. EXAMINATION: After intravenous administration of 13.12 mCi of F18-FDG, a series of overlapping emission and transmission PET images was obtained. In the coronal, transaxial and sagittal planes, the area imaged extended from the skull base through the upper thighs. PET images were obtained one hour after injection. Height: 5 foot 4 inches Weight 241 pounds. COMPARISON: There are no prior PET/CT examinations available for comparison. The recent CT abdomen / pelvic exam dated 01/10/2019 noted a 2.1 x 2.7 CM ill-defined aorto caval mass. The possibility that this is related to a malignant process was raised. The subsequent CT chest exam of 01/12/2019 failed to show any sign of an acute abnormality or of metastatic disease. On the study the aorto caval mass seen previously is again evident. The mass has diminished in size, now measures 1.7 x 1.7 CM. The mass is hypermetabolic with max measuring 5.2. The right testicle also so generally increased hypermetabolic activity. The maximum SUV of the right testicle is 4.6. There is no other hypermetabolic activity identified to suggest malignancy. The CT images failed to show any sign of an acute abnormality. Incidental note is made of a 2.7 CM sebaceous cyst along the posterior aspect of the mid cervical spine. There also appears to be bilateral gynecomastia. The defect in the anterior abdominal wall with the herniation of bowel extending into the subcutaneous fat seen in the previous CT abdomen exam is again evident and no different. There is still no sign of obstruction of the bowel. IMPRESSION: 1. The poorly defined aortocaval mass seen previously has decreased in size. The mass is hypermetabolic, however, and should be considered neoplastic. There is also generalized increased hypermetabolic activity associated with the right testicle and this too is most likely due to neoplasm. 2. There is no other hypermetabolic activity to suggest the presence of malignancy. 3. There is no acute abnormality identified otherwise. Dictated by: Dictated on workstation # [id number]
== END ==
LOC: RAD 08:12
PROVIDERS: ATTEND Internal Medicine Hematology & Oncology
DX: C62.11 Malignant neoplasm of descended right testis (principal)

== ENCOUNTER 2021-08-26 19:01 | Emergency (ER) | payer SELFPAY ==
[~2021-08-26] VITALS: Ht 167.7 cm; Wt 104.3 kg
[~2021-08-26 19:01] MED LIST changes: +ACHYD1T PO; -HYDR-3820 PO
[2021-08-26] MEDS ORDERED: LACTATED RINGERS 1,000 ML IV ONE (19:15)
[2021-08-26 19:19] LABS: BASOPHILS % (AUTO) 0 % (0-10); EOSINOPHILS % (AUTO) 0 % (0-10); HEMATOCRIT 49 % (40-54); HEMOGLOBIN 16.7 g/dL (13.3-17.7); LYMPHOCYTES % (AUTO) 13 % (12-44); MEAN CORPUSCULAR HEMOGLOBIN 30 pg (25-34); MEAN CORPUSCULAR HGB CONC 34 g/dL (32-36); MEAN CORPUSCULAR VOLUME 89 fL (80-99); MEAN PLATELET VOLUME 11.7 fL (9.0-12.2); MONOCYTES # (AUTO) 1.2 10^3/uL (0.0-1.0); MONOCYTES % (AUTO) 8 % (0-12); NEUTROPHILS # (AUTO) 11.9 10^3/uL (1.8-7.8); NEUTROPHILS % (AUTO) 78 % (42-75); PLATELET COUNT 311 10^3/uL (130-400); WHITE BLOOD COUNT 15.2 10^3/uL (4.3-11.0)
[2021-08-26] MEDS ORDERED: IOHEXOL 350 MG/ML 100 ML (OMNIPAQUE 350) VIAL IV ONE (19:45)
[2021-08-26] MEDS ORDERED: NS 100 ML (IVPB) BAG IV ONE (19:45)
[2021-08-26] MEDS ORDERED: HOLD METFORMIN - RECEIVED CONTRAST 20 ML VIAL IV SCH (19:45)
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
[2021-08-26 20:18] LABS: LYMPHOCYTES % (MANUAL) 12 %; MONOCYTES % (MANUAL) 6 %; NEUTROPHILS % (MANUAL) 82 %; RBC MORPH NORMAL
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
[2021-08-26 20:47] LABS: CHLORIDE 103 MMOL/L (98-107); POTASSIUM 4.4 MMOL/L (3.6-5.0); SODIUM 134 MMOL/L (135-145)
[2021-08-26 20:49] LABS: AMYLASE 41 U/L (25-125); CALCIUM 9.4 MG/DL (8.5-10.1)
[2021-08-26 20:50] LABS: GLUCOSE 89 MG/DL (70-105); TOTAL PROTEIN 6.8 GM/DL (6.4-8.2)
[2021-08-26 20:51] LABS: CARBON DIOXIDE 20 MMOL/L (21-32); FIBRIN DEGRADATION PRODUCTS 0.38 UG/ML (0.00-0.49); INR 0.9 (0.8-1.4); PROTHROMBIN TIME PATIENT 12.7 SEC (12.2-14.7)
[2021-08-26] MEDS ORDERED: RX-NAPROXEN (NAPROSYN) 250 MG TAB PPK#4 PO STA (20:51)
[2021-08-26] MEDS ORDERED: RX-CYCLOBENZAPRINE 10 MG (FLEXERIL) TAB PPK#3 PO STA (20:51)
[2021-08-26 20:52] LABS: BILIRUBIN,TOTAL 0.6 MG/DL (0.1-1.0)
[2021-08-26 20:53] LABS: ALKALINE PHOSPHATASE 86 U/L (40-136); CREATININE SERUM 1.05 MG/DL (0.60-1.30); GFR ESTIMATED 94
[2021-08-26 20:55] LABS: BUN/CREATININE RATIO 9
[2021-08-26] MEDS ORDERED: NAPR500T8 PO (20:55)
[2021-08-26] MEDS ORDERED: CYCL10TA25 PO (20:55)
[2021-08-26 20:56] LABS: MAGNESIUM 1.9 MG/DL (1.6-2.4); SALICYLATE < 5.0 MG/DL (5.0-20.0)
[2021-08-26 20:57] LABS: ALANINE AMINOTRANSFERASE 27 U/L (0-55)
[2021-08-26 20:58] LABS: CREATINE KINASE 150 U/L (30-200); LIPASE 80 U/L (8-78)
[2021-08-26 21:03] LABS: ACETAMINOPHEN < 10 UG/ML (10-30)
[2021-08-26 21:04] LABS: CREATINE KINASE MB 2.2 NG/ML (<6.6)
[2021-08-26 21:22] LABS: BILIRUBIN,URINE NEGATIVE (NEGATIVE); CLARITY,URINE CLEAR; COLOR,URINE YELLOW; GLUCOSE, URINE (UA) NEGATIVE (NEGATIVE); KETONES,URINE NEGATIVE (NEGATIVE); LEUKOCYTE ESTERASE ,URINE 1+ (NEGATIVE); NITRITE,URINE NEGATIVE (NEGATIVE); PROTEIN,URINE NEGATIVE (NEGATIVE)
[2021-08-26 21:34] LABS: BACTERIA,URINE TRACE /HPF
[2021-08-26 21:37] LABS: AMPHETAMINE SCREEN, URINE POSITIVE (NEGATIVE); BARBITURATE SCREEN URINE NEGATIVE (NEGATIVE); BENZODIAZEPINES SCREEN URINE NEGATIVE (NEGATIVE); CANNABINOID SCREEN, URINE POSITIVE (NEGATIVE); COCAINE SCREEN URINE NEGATIVE (NEGATIVE); METHADONE STAT NEGATIVE (NEGATIVE); METHAMPHETAMINE SCREEN URINE S POSITIVE (NEGATIVE); OPIATE SCREEN URINE POSITIVE (NEGATIVE); OXYCODONE STAT NEGATIVE (NEGATIVE); PROPOXYPHENE STAT NEGATIVE (NEGATIVE); TRICYCLIC ANTIDEPRESSANTS SCRE NEGATIVE (NEGATIVE)
[2021-08-26 21:43] VITALS: BP 155/102
== END 2021-08-26 21:43 | disposition home or self-care (01) ==
LOC: EDUNIT# 19:01 → ER 19:02
DX: S16.2XXA Laceration of muscle, fascia and tendon at neck level, initial encounter (principal); S39.012A Strain of muscle, fascia and tendon of lower back, initial encounter; M79.601 Pain in right arm; F19.10 Other psychoactive substance abuse, uncomplicated; F17.210 Nicotine dependence, cigarettes, uncomplicated; E66.9 Obesity, unspecified; Z68.41 Body mass index [BMI] 40.0-44.9, adult; V89.2XXA Person injured in unspecified motor-vehicle accident, traffic, initial encounter
CPT/HCPCS: 70450; 70486; 71045; 71260; 72125; 72128; 72131; 72170; 73030; 73060; 73090; 73130; 74177; 80053; 80306; 81000; 82150; 82550; 82553; 83690; 83735; 83874; 84484; 85007; 85027; 85379; 85610; 85730; 93041; 99284; G0480 ×3; L3650; 36415; 80320; 80329; 93005

== ENCOUNTER 2021-08-29 14:55 | Emergency (ER) | payer SELFPAY ==
[~2021-08-29] VITALS: Ht 165 cm; Wt 127.0 kg
[~2021-08-29 14:55] MED LIST changes: +CYCL10TA25 PO; +NAPR500T8 PO
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
[2021-08-29 15:22] LABS: BASOPHILS # (AUTO) 0.1 10^3/uL (0.0-0.1); BASOPHILS % (AUTO) 0 % (0-10); EOSINOPHILS % (AUTO) 0 % (0-10); HEMATOCRIT 43 % (40-54); HEMOGLOBIN 14.8 g/dL (13.3-17.7); LYMPHOCYTES # (AUTO) 1.7 10^3/uL (1.0-4.0); LYMPHOCYTES % (AUTO) 13 % (12-44); MEAN CORPUSCULAR HEMOGLOBIN 31 pg (25-34); MEAN CORPUSCULAR HGB CONC 34 g/dL (32-36); MEAN CORPUSCULAR VOLUME 89 fL (80-99); MEAN PLATELET VOLUME 10.2 fL (9.0-12.2); MONOCYTES # (AUTO) 1.2 10^3/uL (0.0-1.0); MONOCYTES % (AUTO) 9 % (0-12); NEUTROPHILS # (AUTO) 10.3 10^3/uL (1.8-7.8); NEUTROPHILS % (AUTO) 77 % (42-75); PLATELET COUNT 285 10^3/uL (130-400); WHITE BLOOD COUNT 13.3 10^3/uL (4.3-11.0)
[2021-08-29 15:41] LABS: ALANINE AMINOTRANSFERASE 24 U/L (0-55); ALBUMIN 3.8 GM/DL (3.2-4.5); ALKALINE PHOSPHATASE 79 U/L (40-136); BILIRUBIN,TOTAL 0.5 MG/DL (0.1-1.0); BUN/CREATININE RATIO 14; CARBON DIOXIDE 24 MMOL/L (21-32); CHLORIDE 101 MMOL/L (98-107); CREATININE SERUM 1.08 MG/DL (0.60-1.30); GFR ESTIMATED 91; GLUCOSE 127 MG/DL (70-105); POTASSIUM 3.5 MMOL/L (3.6-5.0); SODIUM 134 MMOL/L (135-145); TOTAL PROTEIN 6.2 GM/DL (6.4-8.2)
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
[2021-08-29] MEDS ORDERED: NS 100 ML (IVPB) BAG IV ONE (16:30)
[2021-08-29] MEDS ORDERED: HOLD METFORMIN - RECEIVED CONTRAST 20 ML VIAL IV SCH (16:30)
[2021-08-29] MEDS ORDERED: IOHEXOL 350 MG/ML 100 ML (OMNIPAQUE 350) VIAL IV ONE (16:30)
[2021-08-29 16:59] LABS: AMPHETAMINE SCREEN, URINE NEGATIVE (NEGATIVE); BARBITURATE SCREEN URINE NEGATIVE (NEGATIVE); BENZODIAZEPINES SCREEN URINE NEGATIVE (NEGATIVE); CANNABINOID SCREEN, URINE POSITIVE (NEGATIVE); COCAINE SCREEN URINE NEGATIVE (NEGATIVE); METHADONE STAT NEGATIVE (NEGATIVE); METHAMPHETAMINE SCREEN URINE S NEGATIVE (NEGATIVE); OPIATE SCREEN URINE NEGATIVE (NEGATIVE); OXYCODONE STAT NEGATIVE (NEGATIVE); PROPOXYPHENE STAT NEGATIVE (NEGATIVE); TRICYCLIC ANTIDEPRESSANTS SCRE NEGATIVE (NEGATIVE)
[2021-08-29 17:36] VITALS: BP 135/88
== END 2021-08-29 17:36 | disposition home or self-care (01) ==
LOC: EDUNIT# 14:55 → ER 14:56
DX: M54.6 Pain in thoracic spine (principal); E66.9 Obesity, unspecified; Z68.37 Body mass index [BMI] 37.0-37.9, adult
CPT/HCPCS: 36415; 70450; 70486; 71260; 72125; 72128; 72131; 73110; 74177; 80053; 80306; 84484; 85025; 93005

== ENCOUNTER 2023-04-21 14:49 | Emergency (ER) | payer SELFPAY ==
[~2023-04-21] VITALS: Ht 165 cm; Wt 104.0 kg
[2023-04-21] MEDS ORDERED: morphine INJ 10 MG/ML 1ML (SYR OR VIAL) IVP STA (15:34)
[2023-04-21 16:18] LABS: BASOPHILS # (AUTO) 0.1 10^3/uL (0.0-0.1); BASOPHILS % (AUTO) 1 % (0-10); EOSINOPHILS # (AUTO) 0.1 10^3/uL (0.0-0.3); EOSINOPHILS % (AUTO) 1 % (0-10); HEMATOCRIT 52 % (40-54); HEMOGLOBIN 17.3 g/dL (13.3-17.7); LYMPHOCYTES # (AUTO) 2.1 10^3/uL (1.0-4.0); LYMPHOCYTES % (AUTO) 16 % (12-44); MEAN CORPUSCULAR HEMOGLOBIN 31 pg (25-34); MEAN CORPUSCULAR HGB CONC 33 g/dL (32-36); MEAN CORPUSCULAR VOLUME 93 fL (80-99); MEAN PLATELET VOLUME 10.3 fL (9.0-12.2); MONOCYTES # (AUTO) 1.1 10^3/uL (0.0-1.0); MONOCYTES % (AUTO) 8 % (0-12); NEUTROPHILS # (AUTO) 9.8 10^3/uL (1.8-7.8); NEUTROPHILS % (AUTO) 74 % (42-75); PLATELET COUNT 331 10^3/uL (130-400); WHITE BLOOD COUNT 13.2 10^3/uL (4.3-11.0)
[2023-04-21 16:19] LABS: ALBUMIN 4.7 GM/DL (3.2-4.5); CHLORIDE 105 MMOL/L (98-107); POTASSIUM 3.7 MMOL/L (3.6-5.0); SODIUM 137 MMOL/L (135-145)
[2023-04-21 16:21] LABS: CALCIUM 9.5 MG/DL (8.5-10.1)
[2023-04-21 16:22] LABS: GLUCOSE 90 MG/DL (70-105)
[2023-04-21 16:23] LABS: CARBON DIOXIDE 21 MMOL/L (21-32)
[2023-04-21 16:24] LABS: BILIRUBIN,TOTAL 0.6 MG/DL (0.1-1.0)
[2023-04-21 16:26] LABS: ALKALINE PHOSPHATASE 93 U/L (40-136); CREATININE SERUM 1.12 MG/DL (0.60-1.30); GFR ESTIMATED 86
[2023-04-21 16:27] LABS: BUN/CREATININE RATIO 10
[2023-04-21 16:28] LABS: SALICYLATE < 5.0 MG/DL (5.0-20.0)
[2023-04-21 16:29] LABS: ALANINE AMINOTRANSFERASE 18 U/L (0-55); MAGNESIUM 2.4 MG/DL (1.6-2.4)
[2023-04-21 16:34] LABS: ACETAMINOPHEN < 10 UG/ML (10-30)
[2023-04-21 16:53] LABS: TSH (THYROID ANALYZER) 1.41 UIU/ML (0.35-4.94)
[2023-04-21 17:13] LABS: CLARITY,URINE CLEAR; COLOR,URINE YELLOW; GLUCOSE, URINE (UA) NEGATIVE (NEGATIVE); KETONES,URINE 1+ (NEGATIVE); LEUKOCYTE ESTERASE ,URINE 1+ (NEGATIVE); NITRITE,URINE NEGATIVE (NEGATIVE); PH,URINE 5.5 (5-9); PROTEIN,URINE 1+ (NEGATIVE)
[2023-04-21 17:14] LABS: BACTERIA,URINE TRACE /HPF; BILIRUBIN,URINE 1+ (NEGATIVE)
[2023-04-21 17:16] LABS: AMPHETAMINE SCREEN, URINE POSITIVE (NEGATIVE); BARBITURATE SCREEN URINE NEGATIVE (NEGATIVE); CANNABINOID SCREEN, URINE POSITIVE (NEGATIVE); COCAINE SCREEN URINE NEGATIVE (NEGATIVE); METHADONE STAT NEGATIVE (NEGATIVE); OPIATE SCREEN URINE POSITIVE (NEGATIVE); OXYCODONE STAT NEGATIVE (NEGATIVE); TRICYCLIC ANTIDEPRESSANTS SCRE NEGATIVE (NEGATIVE)
--- NOTE | 2023-04-21 17:21 | ED General ---
General Chief Complaint: General Problems/Pain Stated Complaint: AB PAIN Nursing Triage Note: PT TO ED W/ C/O "UNDER STRESS, HASN'T SLEPT IN MORE THAN A WEEK". ALSO STATES HE WANTS AN MANAGER INTERMEDIATE. WHEN ASKED WHY, PT STATES "I DON'T KNOW". THIS RN ASKED PT IF HE HAD ONE WE COULD CALL FOR HIM ET PT STATED "I HAVE ONE THAT HAS BEEN APPOINTED TO ME". PT ALSO STATES HE "FEELS LIKE STUFF IS MELTING IN HIS ABDOMENT" ET IS ALSO REQUESTING A "C SCAN". 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 He has pain with inspiration and to palpation. He also complains of insomnia and headaches. He makes some unusual comments such as feeling like something is melting in his abdomen or he has fluid running through his abdomen. He has concerns about brain neoplasms or abdominal neoplasms because of his history of metastatic testicular cancer. He is reportedly in remission after treatment. He has not had a scan for quite some time and has not been following with an oncologist. He reports no cough, fever, vomiting, or diarrhea. His mouth seems dry and he seems distracted during history. He is not a very pr ecise historian. He was initially rather hypertensive but this was improving during the course of assessment. He admitted to tobacco use, vaping, and CBD. He denied alcohol or other drug use. He reports no primary care provider. See nurses note above for additional history. Allergies and Home Medications Allergies Coded Allergies: No Known Drug Allergies (Unverified , 03/28/10) Patient Home Medication List Home Medication List Reviewed: Yes Cyclobenzaprine HCl (Cyclobenzaprine HCl) 10 Mg Tablet, 10 MG PO Q8H PRN for SPASMS Prescribed by: RALEIGH WOODS on 08/26/212054 Hydrocodone Bit/Acetaminophen (Lortab 5 Mg Tablet) 1 Tab Tab, 1 TAB PO Q6HR PRN for CHEST PAIN Prescribed by: LARRY REMY on 01/12/19 144 Levofloxacin (Levaquin) 500 Mg Tablet, 500 MG PO DAILY Prescribed by: LARRY REMY on 01/12/19 1442 Naproxen (Naproxen) 500 Mg Tablet.dr, 500 MG PO BID Prescribed by: RALEIGH WOODS on 08/26/212054 Review of Systems Review of Systems Constitutional: see HPI, malaise EENTM: see HPI Respiratory: see HPI Cardiovascular: see HPI Gastrointestinal: see HPI Genitourinary: no symptoms reported Musculoskeletal: no symptoms reported Skin: no symptoms reported Psychiatric/Neurological: See HPI Hematologic/Lymphatic: No Symptoms Reported Immunological/Allergic: no symptoms reported Past Idrohpp-Cikagf-Hfuahk Hx Patient Social History Tobacco Use?: Yes Tobacco type used: Cigarettes Use of E-Cig and/or Vaping dev: Yes E-Cig or Vaping type used: Nicotine Substance use?: Yes (CBD) Alcohol Use?: No Pt feels they are or have been: No Immunizations Up To Date Tetanus Booster (TDap): Less than 5yrs PED Vaccines UTD: Yes Seasonal Allergies Seasonal Allergies: No Past Medical History Surgery/Hospitalization HX: TESTICULAR CA HERNIA REPAIR ABD SURGERY Surgeries: Yes (Bilat ear tubes, right orchiectomy, abd mass resection) Abdominal, Adenoidectomy, Ear Surgery, Gallbladder, Renal (right ureteral stent), Testicular, Tonsillectomy Respiratory: Yes Chronic Bronchitis Currently Using CPAP: No Currently Using BIPAP: No Cardiac: No Neurological: No Reproductive Disorders: Yes (testicular cancer) Genitourinary: Yes (TESTICULAR CANCER) Gastrointestinal: Yes Gall Bladder Disease Musculoskeletal: Yes (CHRONIC NECK PAIN ) Chronic Back Pain Endocrine: No (OBESITY) HEENT: No Loss of Vision: Denies Hearing Impairment: Denies Cancer: Yes Testicular Did You Recieve Any Treatments: Yes What Type of Treatment Did You: Chemotherapy, Surgical Intervention Psychosocial: Yes (POLYSUBSTANCE ABUSE) ADD/ADHD, Anxiety, Depression Integumentary: No Blood Disorders: No Family Medical History Cancer, Diabetes PAST SURGICAL HISTORY: -RIGHT ORCHIECTOMY FOR TESTICULAR CANCER -EXPLORATORY LAPAROTOMY--PT STATES TO HAVE 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 4.0oz. 113.216413ww; 38.00 BMI Method:Actual General Appearance: WD/WN, Mild Distress HEENT: PERRL/EOMI, Normal ENT Inspection, Pharyngeal Erythema, TM Abnormal (L) (Mild erythema), TM Abnormal (R) (Mild erythema), Other (Mucous membranes somewhat dry. Mildly inflamed sclera and conjunctiva, eyes watery) Neck: Normal Inspection Respiratory: Lungs Clear, Normal Breath Sounds, No Accessory Muscle Use Cardiovascular: Regular Rate, Rhythm, No Edema, No Murmur Gastrointestinal: Normal Bowel Sounds, Soft; No Distended; Tenderness (moderate in LUQ) Extremity: Normal Inspection, No Pedal Edema Neurologic/Psychiatric: Alert, Oriented x3, No Motor/Sensory Deficits, social service agency director II- XII Norm as Tested, Other (Somewhat of a confused historian) Procedures/Interventions Suture Size: 3-0 Progress/Results/Core Measures Suspected Sepsis SIRS Temperature: Pulse: 78 Respiratory Rate: 24 Laboratory Tests 04/21/23 15:37: White Blood Count 13.2H Blood Pressure 180 /104 Mean: 129 Laboratory Tests 04/21/23 15:37: Creatinine 1.12, Platelet Count 331, Total Bilirubin 0.6 Results/Orders Lab Results Laboratory Tests Test 04/21/23 15:37 04/21/23 16:20 04/21/23 16:50 Range/Units White Blood Count 13.2 H 4.3-11.0 10^3/uL Red Blood Count 5.58 H 4.30-5.52 10^6/uL Hemoglobin 17.3 13.3-17.7 g/dL Hematocrit 52 40-54 % Mean Corpuscular Volume 93 80-99 fL Mean Corpuscular Hemoglobin 31 25-34 pg Mean Corpuscular Hemoglobin Concent 33 32-36 g/dL Red Cell Distribution Width 13.0 10.0-14.5 % Platelet Count 331 130-400 10^3/uL Mean Platelet Volume 10.3 9.0-12.2 fL Immature Granulocyte % (Auto) 1 % Neutrophils (%) (Auto) 74 42-75 % Lymphocytes (%) (Auto) 16 12-44 % Monocytes (%) (Auto) 8 0-12 % Eosinophils (%) (Auto) 1 0-10 % Basophils (%) (Auto) 1 0-10 % Neutrophils # (Auto) 9.8 H 1.8-7.8 10^3/uL Lymphocytes # (Auto) 2.1 1.0-4.0 10^3/uL Monocytes # (Auto) 1.1 H 0.0-1.0 10^3/uL Eosinophils # (Auto) 0.1 0.0-0.3 10^3/uL Basophils # (Auto) 0.1 0.0-0.1 10^3/uL Immature Granulocyte # (Auto) 0.1 0.0-0.1 10^3/uL Sodium Level 137 135-145 MMOL/L Potassium Level 3.7 3.6-5.0 MMOL/L Chloride Level 105 98-107 MMOL/L Carbon Dioxide Level 21 21-32 MMOL/L Anion Gap 11 5-14 MMOL/L Blood Urea Nitrogen 11 7-18 MG/DL Creatinine 1.12 0.60-1.30 MG/DL Estimat Glomerular Filtration Rate 86 BUN/Creatinine Ratio 10 Glucose Level 90 70-105 MG/DL Calcium Level 9.5 8.5-10.1 MG/DL Corrected Calcium 8.5-10.1 MG/DL Magnesium Level 2.4 1.6-2.4 MG/DL Total Bilirubin 0.6 0.1-1.0 MG/DL Aspartate Amino Transf (AST/SGOT) 15 5-34 U/L Alanine Aminotransferase (ALT/SGPT) 18 0-55 U/L Alkaline Phosphatase 93 40-136 U/L Total Protein 8.0 6.4-8.2 GM/DL Albumin 4.7 H 3.2-4.5 GM/DL Lipase 16 8-78 U/L TSH Gates Testing 1.41 0.35-4.94 UIU/ML Salicylates Level < 5.0 L 5.0-20.0 MG/DL Acetaminophen Level < 10 L 10-30 UG/ML Serum Alcohol < 10 <10 MG/DL Influenza Type A (RT-PCR) Not Detected Not Detecte Influenza Type B (RT-PCR) Not Detected Not Detecte SARS-CoV-2 RNA (RT-PCR) Not Detected Not Detecte Group A Streptococcus Screen Not Detected NotDetected Urine Color YELLOW Urine Clarity CLEAR Urine pH 5.5 5-9 Urine Specific [place] >=1.030 1.016-1.022 Urine Protein 1+ H NEGATIVE Urine Glucose (UA) NEGATIVE NEGATIVE Urine Ketones 1+ H NEGATIVE Urine Nitrite NEGATIVE NEGATIVE Urine Bilirubin 1+ H NEGATIVE Urine Urobilinogen 0.2 < = 1.0 MG/DL Urine Leukocyte Esterase 1+ H NEGATIVE Urine RBC (Auto) 3+ H NEGATIVE Urine RBC 10-25 H /HPF Urine WBC 5-10 H /HPF Urine Squamous Epithelial Cells 2-5 /HPF Urine Crystals NONE /LPF Urine Bacteria TRACE /HPF Urine Casts NONE /LPF Urine Mucus SMALL H /LPF Urine Culture Indicated YES Urine Opiates Screen POSITIVE H NEGATIVE Urine Oxycodone Screen NEGATIVE NEGATIVE Urine Methadone Screen NEGATIVE NEGATIVE Urine Barbiturates Screen NEGATIVE NEGATIVE Ur Tricyclic Antidepressants Screen NEGATIVE NEGATIVE Urine Phencyclidine Screen NEGATIVE NEGATIVE Urine Amphetamines Screen POSITIVE H NEGATIVE Urine Methamphetamines Screen POSITIVE H NEGATIVE Urine Benzodiazepines Screen NEGATIVE NEGATIVE Urine Cocaine Screen NEGATIVE NEGATIVE Urine Cannabinoids Screen POSITIVE H NEGATIVE My Orders Orders - DONTA BARTH MD Acetaminophen (04/21/23 15:06) Alcohol (04/21/23 15:06) Cbc And Automated Diff (04/21/23 15:06) Comprehensive Metabolic Panel (04/21/23 15:06) Drug Screen Stat (Urine) (04/21/23 15:06) Magnesium (04/21/23 15:06) Thyroid Analyzer (04/21/23 15:06) Ua Culture If Indicated (04/21/23 15:06) Salicylate (04/21/23 15:06) Ed Iv/Invasive Line Start (04/21/23 15:06) Rapid Strep A Screen (04/21/23 15:34) Covid 19 Inhouse Test (04/21/23 15:34) Influenza A And B By Pcr (04/21/23 15:34) Morphine Injection (Morphine Injection (04/21/23 15:34) Lipase (04/21/23 16:52) Urine Culture (04/21/23 16:50) Ct Head Wo (04/21/23 17:19) Ct Chest/Abdomen/Pelvis W (04/21/23 17:19) Chlamydia Trachomatis Urine (04/21/23 17:22) Neis Arron Dna Urine Test (04/21/23 17:22) Iohexol Injection (Omnipaque 350 Mg/Ml 1 (04/21/23 17:30) Received Contrast (Hold Metformin- Contr (04/21/23 17:30) Ns (Ivpb) 100 Ml (Sodium Chloride 0.9% 1 (04/21/23 17:30) Ns Iv 1000 Ml (Ns Iv 1000 Ml) (04/21/23 18:00) Ceftriaxone Iv/Im (Ceftriaxone Iv/Im) (04/21/23 17:57) Zofran Iv (04/21/23 19:00) Lidocaine 2% Viscous 15 Ml (Xylocaine Vi (04/21/23 19:00) Mylanta Po (04/21/23 19:00) Ketorolac Injection (Ketorolac Injection (04/21/23 19:00) Medications Given in ED Current Medications Medications Dose Ordered Sig/Debbie Route Start Time Stop Time Status Last Admin Dose Admin Iohexol 100 ml ONCE ONCE IV 04/21/23 17:30 04/21/23 18:10 DC 04/21/23 17:39 80 ML Sodium Chloride 100 ml ONCE ONCE IV 04/21/23 17:30 04/21/23 18:10 DC 04/21/23 17:39 80 ML Vital Signs/I&O 04/21/23 14:57 Temp 35.7 Pulse 78 Resp 24 B/P (MAP) 180/104 (129) Pulse Ox 98 O2 Delivery Room Air Capillary Refill : Less Than 3 Seconds Blood Pressure Mean: 129 Diagnostic Imaging Diagonstic Imaging: CT Plain Films/CT/US/NM/MRI: head Comments NAME: SHWETA RUIZ [facility] REC#: [id number] PT STATUS: REG ER : 1985 PHYSICIAN: DONTA BARTH MD ADMIT DATE: 04/21/23/ER Signed Date of Exam:04/21/23 CT HEAD WO PROCEDURE: CT head without contrast. TECHNIQUE: Multiple contiguous axial images were obtained through the brain without the use of intravenous contrast. Auto Exposure Controls were utilized during the CT exam to meet ALARA standards for radiation dose reduction. INDICATION: 37-year-old male presents to ER with headache, confusion. Patient has a history of metastatic testicular cancer. COMPARISON: 08/21/2021. FINDINGS: The midline structures are not displaced. Lateral, 3rd and 4th ventricles are normal in size, shape and anatomic position. There is no mass, mass effect, hydrocephalus or hemorrhage. Jackson-white differentiation is normal. There is no sulcal effacement. There is no abnormal extra-axial fluid collection or hemorrhage. Basilar cisterns appear normal. There is some mild left maxillary sinus disease. Orbits and mastoid air cells are unremarkable. Bone windows show no calvarial changes IMPRESSION: 1. Unremarkable nonenhanced CT brain. If symptoms warrant or persist, and especially due to the patient's previous history of metastatic testicular CA, perhaps a pre and post contrast MRI brain may be of further value. 2. Mild left maxillary sinus disease. Dictated by: Dictated on workstation # [id number] Dict: 04/21/231742 Trans: 04/21/231805 [facility] [id number] Interpreted by: KERI LUGO MD Electronically signed by: KERI LUGO MD 04/21/231805 Diagonstic Imaging: CT Plain Films/CT/US/NM/MRI: chest, abdomen, pelvis Comments NAME: SHWETA RUIZ [facility] REC#: [id number] PT STATUS: REG ER : 1985 PHYSICIAN: DONTA BARTH MD ADMIT DATE: 04/21/23/ER Draft Date of Exam:04/21/23 CT CHEST/ABDOMEN/PELVIS W PROCEDURE: CT chest, abdomen, and pelvis with contrast. TECHNIQUE: Multiple contiguous axial images were obtained through the chest, abdomen, and pelvis after the administration of intravenous contrast. Auto Exposure Controls were utilized during the CT exam to meet ALARA standards for radiation dose reduction. INDICATION: 37-year-old male with left lower quadrant abdominal pain and chest pain. Patient has a history of metastatic testicular cancer. COMPARISON: 08/29/2021. FINDINGS: There is no axillary adenopathy. There is no mediastinal or hilar adenopathy. Cardiac contour is normal. Thoracic aortic contour is also normal with no evidence of aneurysm or dissection. There is normal arch origin of great vessels. Pulmonary outflow tract as well as the right and left pulmonary arteries and their segmental branches are patent. Lungs are clear with no consolidation, effusion or pneumothorax. Liver shows uniform attenuation. Gallbladder is surgically absent. Spleen and GE junction are normal. Stomach and duodenal sweep are unremarkable. Pancreas shows sharp margins. Adrenals are normal. Kidneys show right renal cortical thinning. There is mild moderate right hydronephrosis. There is a double-J ureteral stent in the right ureter. Bladder is nondistended. Left kidney and ureter are unremarkable. Bladder is nondistended. Nonopacified loops of small bowel are normal. Large bowel contains fecal material and gas. There is no free air or free fluid. 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 There is some fullness along the right periaortic retroperitoneum. An element of retroperitoneal lymphadenopathy is not excluded. This, however, is not changed since 08/21/2021. There is most likely coursing loops of small bowel. Bone windows show no overall gross abnormality. IMPRESSION: 1. Unremarkable postcontrast CT chest. 2. Surgically absent gallbladder. 3. Previous retroperitoneal lymph node resection. 4. There is a double pigtail right ureteral stent. There is some mild to moderate right hydronephrosis. Bladder is nondistended. 5. No definite evidence of tumor recurrence or metastatic disease suggested by a postcontrast CT criteria. Additional nonemergent findings as described above. Dictated on workstation # [id number] Dict: 04/21/23 1747 Trans: 04/21/23 1838 [facility] [id number] Interpreted by: KERI LUGO MD Departure Impression Primary Impression: Left upper quadrant pain Additional Impressions: Urinary tract infection Qualified Codes: N39.0 - Urinary tract infection, site not specified Polysubstance abuse History of testicular cancer Acute headache Qualified Codes: R51.9 - Headache, unspecified Disposition: 01 HOME, SELF-CARE Condition: Stable Departure-Patient Inst. Decision time for Depature: 18:53 Referrals: NO,LOCAL PHYSICIAN (PCP/Family) Primary Care Physician Patient Instructions: Urinary Tract Infection, Adult ED, Abdominal Pain, Adult ED Add. Discharge Instructions: Drink plenty of water to stay well-hydrated and flush out your urinary tract infection. Complete your antibiotics as prescribed. Please contact your urologist for further instructions. You need to have your urine culture reviewed by a urologist or by a primary care provider early next week. This is important to ensure you are taking the best antibiotic for the type of bacteria that grows out of your urine. Please contact your urologist on Sunday and arrange a follow-up appointment with urology, and also establish with a primary care provider. Please also contact your oncologist to determine if follow-up is warranted because of the symptoms you are having. Avoid use of any mind altering substances such as alcohol, marijuana, or other illicit substances. Take Protonix as prescribed for your stomach pain. This is an antacid medication. You may use Tylenol (acetaminophen) up to 1000 mg every 6 hours as needed for pain. Add ibuprofen up to 600 mg every 6 hours as needed for pain not controlled by Tylenol. Use ibuprofen sparingly as it may cause stomach irritation. Take ibuprofen with food or milk. Return to the emergency room if you have worsening symptoms despite following these instructions. All discharge instructions reviewed with patient and/or family. Voiced understanding. Scripts Pantoprazole Sodium (Protonix) 40 Mg Tablet. 40 MG PO DAILY, #30 TAB Prov: DONTA BARTH MD 04/21/23 Sulfamethoxazole/Trimethoprim (Bactrim Ds Tablet) 1 Each Tablet 1 EACH PO BID, #20 TAB Prov: DONTA BARTH MD 04/21/23 DONTA BARTH MD Apr 21, 2023 17:21
[2023-04-21] MEDS ORDERED: IOHEXOL 350 MG/ML 100 ML (OMNIPAQUE 350) VIAL IV ONE (17:30)
[2023-04-21] MEDS ORDERED: NS 100 ML (IVPB) BAG IV ONE (17:30)
[2023-04-21] MEDS ORDERED: HOLD METFORMIN - RECEIVED CONTRAST 20 ML VIAL IV SCH (17:30)
--- NOTE | 2023-04-21 17:56 | Diagnostic Imaging Report ---
PROCEDURE: CT head without contrast. TECHNIQUE: Multiple contiguous axial images were obtained through the brain without the use of intravenous contrast. Auto Exposure Controls were utilized during the CT exam to meet ALARA standards for radiation dose reduction. INDICATION: 37-year-old male presents to ER with headache, confusion. Patient has a history of metastatic testicular cancer. COMPARISON: 08/21/2021. FINDINGS: The midline structures are not displaced. Lateral, 3rd and 4th ventricles are normal in size, shape and anatomic position. There is no mass, mass effect, hydrocephalus or hemorrhage. Jackson-white differentiation is normal. There is no sulcal effacement. There is no abnormal extra-axial fluid collection or hemorrhage. Basilar cisterns appear normal. There is some mild left maxillary sinus disease. Orbits and mastoid air cells are unremarkable. Bone windows show no calvarial changes IMPRESSION: 1. Unremarkable nonenhanced CT brain. If symptoms warrant or persist, and especially due to the patient's previous history of metastatic testicular CA, perhaps a pre and post contrast MRI brain may be of further value. 2. Mild left maxillary sinus disease. Dictated by: Dictated on workstation # [id number]
[2023-04-21] MEDS ORDERED: cefTRIAXone IV/IM 1,000 MG in NS (IVPB) 50 ML 50 ML IV STA (17:57)
[2023-04-21] MEDS ORDERED: NS IV 1000 ML 1,000 ML IV SCH (18:00)
--- NOTE | 2023-04-21 18:40 | Diagnostic Imaging Report ---
PROCEDURE: CT chest, abdomen, and pelvis with contrast. TECHNIQUE: Multiple contiguous axial images were obtained through the chest, abdomen, and pelvis after the administration of intravenous contrast. Auto Exposure Controls were utilized during the CT exam to meet ALARA standards for radiation dose reduction. INDICATION: 37-year-old male with left lower quadrant abdominal pain and chest pain. Patient has a history of metastatic testicular cancer. COMPARISON: 08/29/2021. FINDINGS: There is no axillary adenopathy. There is no mediastinal or hilar adenopathy. Cardiac contour is normal. Thoracic aortic contour is also normal with no evidence of aneurysm or dissection. There is normal arch origin of great vessels. Pulmonary outflow tract as well as the right and left pulmonary arteries and their segmental branches are patent. Lungs are clear with no consolidation, effusion or pneumothorax. Liver shows uniform attenuation. Gallbladder is surgically absent. Spleen and GE junction are normal. Stomach and duodenal sweep are unremarkable. Pancreas shows sharp margins. Adrenals are normal. Kidneys show right renal cortical thinning. There is mild moderate right hydronephrosis. There is a double-J ureteral stent in the right ureter. Bladder is nondistended. Left kidney and ureter are unremarkable. Bladder is nondistended. Nonopacified loops of small bowel are normal. Large bowel contains fecal material and gas. There is no free air or free fluid. 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 There is some fullness along the right periaortic retroperitoneum. An element of retroperitoneal lymphadenopathy is not excluded. This, however, is not changed since 08/21/2021. There is most likely coursing loops of small bowel. Bone windows show no overall gross abnormality. IMPRESSION: 1. Unremarkable postcontrast CT chest. 2. Surgically absent gallbladder. 3. Previous retroperitoneal lymph node resection. 4. There is a double pigtail right ureteral stent. There is some mild to moderate right hydronephrosis. Bladder is nondistended. 5. No definite evidence of tumor recurrence or metastatic disease suggested by a postcontrast CT criteria. Additional nonemergent findings as described above. Dictated by: Dictated on workstation # [id number]
[2023-04-21] MEDS ORDERED: SULF1TAB38 PO (18:57)
[2023-04-21] MEDS ORDERED: PANT40TA2 PO (18:57)
[2023-04-21] MEDS ORDERED: LIDOCAINE 2% VISCOUS 15 ML UDC PO ONE (19:00)
[2023-04-21] MEDS ORDERED: ONDANSETRON INJECTION 4 MG/2 ML (SDV) IVP ONE (19:00)
[2023-04-21] MEDS ORDERED: ANTACID SUSPENSION 30 ML UDC PO ONE (19:00)
[2023-04-21] MEDS ORDERED: KETOROLAC INJ 30 MG/ML VIAL IVP ONE (19:00)
[2023-04-21 20:49] VITALS: BP 141/92
== END 2023-04-21 20:49 | disposition home or self-care (01) ==
LOC: EDUNIT# 14:49 → ER 14:52
DX: N39.0 Urinary tract infection, site not specified (principal); F19.10 Other psychoactive substance abuse, uncomplicated; R10.12 Left upper quadrant pain; R51.9 Headache, unspecified; E66.9 Obesity, unspecified; F17.210 Nicotine dependence, cigarettes, uncomplicated; F17.290 Nicotine dependence, other tobacco product, uncomplicated; Z85.47 Personal history of malignant neoplasm of testis; Z68.38 Body mass index [BMI] 38.0-38.9, adult; Z90.49 Acquired absence of other specified parts of digestive tract
CPT/HCPCS: 70450; 71260; 74177; 80053; 80306; 81000; 83690; 83735; 84443; 85025; 87077; 87088; 87430; 87491; 87591; 87636; 96361; 96365; 96375; 99284; G0480 ×3; 36415; 80320; 80329